=== PATIENT | female | born 1960 | race African-American/Black ===

== ENCOUNTER 2016-10-03 11:33 | Emergency (ER) | payer MEDICAID, OTHER ==
[~2016-10-03] VITALS: Ht 167.6 cm; Wt 59.0 kg
[2016-10-03] MEDS ORDERED: Morphine Sulfate 4mg/ml Inj IVP ONE (12:00)
[2016-10-03] MEDS ORDERED: Famotidine 20 MG/ 2ML VIAL IVP ONE (12:00)
[2016-10-03 12:21] LABS: LYMPHOCYTES % (AUTO) 22.8 % (20.0-45.0); MEAN CORPUSCULAR HEMOGLOBIN 30.7 PG (27.0-31.0); MEAN CORPUSCULAR HGB CONC 33.6 G/DL (32.0-36.0); MEAN CORPUSCULAR VOLUME 92 FL (80-99); MEAN PLATELET VOLUME 7.5 FL (6.5-10.1); MONOCYTES % (AUTO) 2.9 % (1.0-10.0); NEUTROPHILS % (AUTO) 73.3 % (45.0-75.0); PLATELET COUNT 333 K/UL (150-450); RED BLOOD COUNT 5.14 M/UL (4.20-5.40); RED CELL DISTRIBUTION WIDTH 11.2 % (11.6-14.8); WHITE BLOOD COUNT 10.8 K/UL (4.8-10.8)
[2016-10-03 12:24] LABS: APPEARANCE,URINE CLEAR; KETONES,URINE NEGATIVE (NEGATIVE); LEUKOCYTE ESTERASE ,URINE NEGATIVE (NEGATIVE); NITRITE,URINE NEGATIVE (NEGATIVE); PH,URINE 7 (4.5-8.0); PROTEIN,URINE NEGATIVE (NEGATIVE); UROBILINOGEN,URINE NORMAL MG/DL (0.0-1.0)
[2016-10-03 12:30] LABS: PROTHROMBIN TIME 9.9 SEC (9.30-11.50)
[2016-10-03 12:38] LABS: ALANINE AMINOTRANSFERASE 14 U/L (3-33); ALBUMIN/GLOBULIN RATIO 1.3 (1.0-2.7); ALCOHOL < 10 mg/dL; ANION GAP 18 (5-15); ASPARTATE AMINO TRANSFERASE 17 U/L (5-40); CALCIUM 10.1 mg/dL (8.6-10.2); CARBON DIOXIDE 25 mEQ/L (20-30); CHLORIDE 90 mEQ/L (98-107); CREATININE 1.3 mg/dL (0.5-0.9); GLOMERULAR FILTRATION RATE 51.5 mL/min (>60); HEMOLYSIS 1; LIPASE 65 U/L (< 60); POTASSIUM 3.1 mEQ/L (3.4-4.9); SODIUM 133 mEQ/L (135-145); TOTAL PROTEIN 7.5 g/dL (6.6-8.7)
[2016-10-03 12:55] VITALS: BP 186/113
[2016-10-03] MEDS ORDERED: Lisinopril 10mg tab ORAL ONE (13:00)
--- NOTE | 2016-10-03 14:21 | Emergency Room Report ---
History of Present Illness General Chief Complaint: Abdominal Pain Source: Patient Present Illness HPI Patient presents with severe epigastric pain and vomiting which began this morning. She recently returned from [place]. No fevers or diarrhea. Not vomit blood. Has not had this in the past. No medications taken. Pain is 10/ 10, severe, radiates somewhat to back. She denies alcohol and other drugs. No melena. Some dizziness and weakness. No headache. Post menopausal. H/O hypertension off meds for many months. Not remember meds. Allergies: Coded Allergies: PROPOXYPHENE (Verified Allergy, Mild, 11/03/08) Patient History Past Medical History: see triage record, HTN Social History: Reports: drug use - see tox - she had denied, Denies: smoking Social History Narrative with sig other Now: No Reviewed Nursing Documentation: PMH: Agreed, PSxH: Agreed Nursing Documentation-PMH Hx Hypertension: Yes Review of Systems All Other Systems: negative except mentioned in HPI Physical Exam Vital Signs Date Time Temp Pulse Resp B/P Pulse Ox O2 Delivery O2 Flow Rate FiO2 10/03/16 11:42 98.8 80 15 159/91 97 Room Air Sp02 EP Interpretation: reviewed, normal General Appearance: GCS 15, moderate distress, thin Head: normocephalic Eyes: bilateral eye PERRL, bilateral eye normal inspection ENT: moist mucus membranes Neck: supple Respiratory: lungs clear, normal breath sounds Cardiovascular #1: regular rate, rhythm Cardiovascular #2: 2+ radial (R) Gastrointestinal: normal inspection, soft, no mass, non-distended, no rebound, abnormal bowel sounds - decreased, tenderness - epigastric, scaphoid Musculoskeletal: back normal, gait/station normal, normal range of motion Neurologic: alert, oriented x3, grossly normal Psychiatric: anxious Skin: normal inspection, warm/dry Medical Decision Making Diagnostic Impression: Primary Impression: Epigastric pain Additional Impressions: Vomiting Qualified Codes: R11.2 - Nausea with vomiting, unspecified Substance abuse Hypertension Qualified Codes: I10 - Essential (primary) hypertension ER Course Patient presents with epigastric pain and vomiting. DDx: gastritis, pancreatitis, GERD, AMI, PUD amongst others. In moderate distress. Evaluation with labs, EKG. Treatment with IV hydration, pepcid, analgesics and zofran. Labs significant for normal WBC. + amphetamine tox. Renal insufficiency and elevated H/H suggests volume depletion. Slightly low potassium. Improved with treatment. BP high and treated with lisinopril. Discussed + tox - denial. Patient stable for outpatient observation and treatment. Laboratory Tests Test 10/03/16 12:06 10/03/16 12:09 Urine Color Pale yellow Urine Appearance Clear Urine pH 7 (4.5-8.0) Urine Specific [place] 1.010 (1.005-1.035) Urine Protein Negative (NEGATIVE) Urine Glucose (UA) Negative (NEGATIVE) Urine Ketones Negative (NEGATIVE) Urine Occult Blood Negative (NEGATIVE) Urine Nitrite Negative (NEGATIVE) Urine Bilirubin Negative (NEGATIVE) Urine Urobilinogen Normal MG/DL (0.0-1.0) Urine Leukocyte Esterase Negative (NEGATIVE) Urine Opiates Screen Negative (NEGATIVE) Urine Barbiturates Screen Negative (NEGATIVE) Phencyclidine (PCP) Screen Negative (NEGATIVE) Urine Amphetamines Screen Positive (NEGATIVE) H Urine Benzodiazepines Screen Negative (NEGATIVE) Urine Cocaine Screen Negative (NEGATIVE) Urine Marijuana (THC) Screen Positive (NEGATIVE) H White Blood Count 10.8 K/UL (4.8-10.8) Red Blood Count 5.14 M/UL (4.20-5.40) Hemoglobin 15.8 G/DL (12.0-16.0) Hematocrit 47.1 % (37.0-47.0) H Mean Corpuscular Volume 92 FL (80-99) Mean Corpuscular Hemoglobin 30.7 PG (27.0-31.0) Mean Corpuscular Hemoglobin Concent 33.6 G/DL (32.0-36.0) Red Cell Distribution Width 11.2 % (11.6-14.8) L Platelet Count 333 K/UL (150-450) Mean Platelet Volume 7.5 FL (6.5-10.1) Neutrophils (%) (Auto) 73.3 % (45.0-75.0) Lymphocytes (%) (Auto) 22.8 % (20.0-45.0) Monocytes (%) (Auto) 2.9 % (1.0-10.0) Eosinophils (%) (Auto) 0.0 % (0.0-3.0) Basophils (%) (Auto) 1.0 % (0.0-2.0) Prothrombin Time 9.9 SEC (9.30-11.50) Prothrombin Time INR 1.0 (0.9-1.1) PTT 26 SEC (23-33) Sodium Level 133 mEQ/L (135-145) L Potassium Level 3.1 mEQ/L (3.4-4.9) L Chloride Level 90 mEQ/L (98-107) L Carbon Dioxide Level 25 mEQ/L (20-30) Anion Gap 18 (5-15) H Blood Urea Nitrogen 19 mg/dL (7-23) Creatinine 1.3 mg/dL (0.5-0.9) H Estimate Glomerular Filtration Rate 51.5 mL/min (>60) Glucose Level 123 mg/dL (74-106) H Calcium Level 10.1 mg/dL (8.6-10.2) Total Bilirubin 0.5 mg/dL (0.0-1.2) Aspartate Amino Transferase (AST) 17 U/L (5-40) Alanine Aminotransferase (ALT) 14 U/L (3-33) Alkaline Phosphatase 67 U/L (35-104) Total Protein 7.5 g/dL (6.6-8.7) Albumin 4.3 g/dL (3.5-5.2) Globulin 3.2 g/dL Albumin/Globulin Ratio 1.3 (1.0-2.7) Lipase 65 U/L (< 60) H Serum Alcohol < 10 mg/dL EKG Diagnostic Results Rate: normal Rhythm: NSR ST Segments: no acute changes Rhythm Strip Diag. Results EP Interpretation: yes Rhythm: NSR, no PVC's, no ectopy Last Vital Signs Date Time Temp Pulse Resp B/P Pulse Ox O2 Delivery O2 Flow Rate FiO2 10/03/16 14:45 98.3 80 15 140/98 100 Room Air Status: improved Disposition: HOME, SELF-CARE Condition: Improved Scripts Lisinopril* (ZESTRIL*) 10 Mg Tablet 10 MG ORAL DAILY, #30 TAB Prov: Crescencio Owusu M.D. 10/03/16 Acetaminophen (Tylenol) 325 Mg Tablet 650 MG ORAL Q6H Y for Prn Pain/Headache/Temp > 101, #30 TAB 0 Refills Prov: Crescencio Owusu M.D. 10/03/16 Ondansetron Odt* (ZOFRAN ODT*) 4 Mg Tab.rapdis 4 MG ORAL Q8H Y for Nausea & Vomiting, #6 TAB 0 Refills Prov: Crescencio Owusu M.D. 10/03/16 Famotidine (PEPCID) 20 Mg Tablet 20 MG ORAL DAILY, #30 TAB 0 Refills Prov: Crescencio Owusu M.D. 10/03/16 Referrals: [facility]ERR[facility] (PCP) Crescencio Owusu M.D. October 03, 2016 14:21
[2016-10-03] MEDS ORDERED: ZESTRIL10 MG ORAL (14:24)
[2016-10-03] MEDS ORDERED: ZOFRAN ODT4 MG ORAL (14:24)
[2016-10-03] MEDS ORDERED: PEPCID20 MG ORAL (14:24)
[2016-10-03] MEDS ORDERED: TYLENOL325 MG ORAL (14:24)
[2016-10-03 14:28] VITALS: BP 140/98
[2016-10-03 14:45] VITALS: BP 140/98
[2016-10-04] MEDS ORDERED: AMLODIPINE BESY10 MG ORAL (13:59)
[2016-10-04] MEDS ORDERED: ESTRACE1 MG ORAL (13:59)
[2016-10-04] MEDS ORDERED: HYDROCHLOROTH12.5 M2 ORAL (14:00)
[2016-10-04] MEDS ORDERED: TACTINAL325 MG PO (14:00)
--- NOTE | 2016-10-04 16:52 | Cardiology Report ---
APPROVED REPORT EKG Measurement Heart [id number] Normal sinus rhythm Abnormal ECG
== END 2016-10-03 14:49 | disposition home or self-care (01) ==
LOC: EMR 12:01
DX: R10.13 Epigastric pain (principal); R11.2 Nausea with vomiting, unspecified; I10 Essential (primary) hypertension; F19.10 Other psychoactive substance abuse, uncomplicated
CPT/HCPCS: 36415; 80053; 80300; 80329; 81003; 83690; 85025; 85610; 85730; 93005; 96360; 96374; 96375; 99284; J2270; J2405; S0028

== ENCOUNTER 2016-10-04 13:26 | Emergency (ER) | payer OTHER ==
[~2016-10-04] VITALS: Ht 170.2 cm; Wt 59.0 kg
[~2016-10-04 13:26] MED LIST: PEPCID20 MG ORAL; TYLENOL325 MG ORAL; ZESTRIL10 MG ORAL; ZOFRAN ODT4 MG ORAL
[2016-10-04] MEDS ORDERED: Famotidine 20 MG/ 2ML VIAL IVP ONE (13:45)
[2016-10-04] MEDS ORDERED: ESTRACE1 MG ORAL (13:59)
[2016-10-04] MEDS ORDERED: AMLODIPINE BESY10 MG ORAL (13:59)
[2016-10-04] MEDS ORDERED: HYDROCHLOROTH12.5 M2 ORAL (14:00)
[2016-10-04] MEDS ORDERED: TACTINAL325 MG PO (14:00)
[2016-10-04 14:01] LABS: BASOPHILS % (AUTO) 0.5 % (0.0-2.0); EOSINOPHILS % (AUTO) 0.1 % (0.0-3.0); LYMPHOCYTES % (AUTO) 31.6 % (20.0-45.0); MEAN CORPUSCULAR HEMOGLOBIN 31.9 PG (27.0-31.0); MEAN CORPUSCULAR HGB CONC 34.8 G/DL (32.0-36.0); MEAN CORPUSCULAR VOLUME 91 FL (80-99); MEAN PLATELET VOLUME 7.8 FL (6.5-10.1); MONOCYTES % (AUTO) 4.7 % (1.0-10.0); NEUTROPHILS % (AUTO) 63.2 % (45.0-75.0); PLATELET COUNT 342 K/UL (150-450); RED BLOOD COUNT 4.88 M/UL (4.20-5.40); RED CELL DISTRIBUTION WIDTH 11.1 % (11.6-14.8); WHITE BLOOD COUNT 9.2 K/UL (4.8-10.8)
[2016-10-04 14:04] VITALS: BP 187/103
[2016-10-04 14:06] LABS: APPEARANCE,URINE CLEAR; KETONES,URINE NEGATIVE (NEGATIVE); LEUKOCYTE ESTERASE ,URINE NEGATIVE (NEGATIVE); NITRITE,URINE NEGATIVE (NEGATIVE); PH,URINE 8 (4.5-8.0); PROTEIN,URINE NEGATIVE (NEGATIVE); UROBILINOGEN,URINE NORMAL MG/DL (0.0-1.0)
[2016-10-04] MEDS ORDERED: fentaNYL 100 mcg/2 mL IV ONE (14:15)
[2016-10-04 14:17] LABS: TROPONIN I < 0.30 ng/mL (<=0.30)
[2016-10-04 14:21] LABS: ALBUMIN/GLOBULIN RATIO 1.3 (1.0-2.7); CALCIUM 10.1 mg/dL (8.6-10.2); CREATININE 1.4 mg/dL (0.5-0.9); GLOMERULAR FILTRATION RATE 47.3 mL/min (>60); TOTAL PROTEIN 7.3 g/dL (6.6-8.7)
--- NOTE | 2016-10-04 14:38 | Emergency Room Report ---
History of Present Illness General Chief Complaint: Abdominal Pain Source: Patient Present Illness HPI 56YOF here for abd pain. Second visit in 2 days. Was here yesterday for same. Was DCed with diagnosis of gastritis. Utox + amphetamine and MJ. Renal insufficiency and elevated H/H suggests volume depletion. Slightly low potassium. Was hydrated. Patient states she left ER, filled Rx, and took meds but no improvement. Denies vomiting, diarrhea, fever/chills. Pain remains epigastric in location. History of hysterectomy Allergies: Coded Allergies: PROPOXYPHENE (Verified Allergy, Mild, 11/03/08) Patient History Past Medical History: HTN Past Surgical History: hysterectomy Pertinent Family History: none Social History: Denies: alcohol use, drug use, smoking Nursing Documentation-PMH Hx Hypertension: Yes Review of Systems All Other Systems: negative except mentioned in HPI Physical Exam Vital Signs Date Time Temp Pulse Resp B/P Pulse Ox O2 Delivery O2 Flow Rate FiO2 10/04/16 13:31 97.3 80 15 160/108 100 Room Air Sp02 EP Interpretation: reviewed, abnormal General Appearance: normal inspection, well appearing, no apparent distress, alert, GCS 15, non-toxic, other - writhing on stretcher Head: normocephalic, atraumatic Eyes: bilateral eye EOMI, bilateral eye PERRL ENT: normal ENT inspection, hearing grossly normal, normal voice Neck: normal inspection, full range of motion, supple, no bony tend Respiratory: normal inspection, lungs clear, normal breath sounds, no respiratory distress, no retraction, no wheezing Cardiovascular #1: regular rate, rhythm, no edema Gastrointestinal: normal inspection, normal bowel sounds, soft, no guarding, no hernia, other - + epigastric ttp. No ecchymoses. No rebound, guarding Genitourinary: no CVA tenderness Musculoskeletal: normal inspection, back normal, normal range of motion, Ceci' s Sign negative Neurologic: normal inspection, alert, oriented x3, responsive, foster parent III-XII nml as tested, motor strength/tone normal, speech normal Psychiatric: normal inspection, judgement/insight normal, mood/affect normal Skin: normal inspection, normal color, no rash Medical Decision Making Diagnostic Impression: Primary Impression: Epigastric pain Additional Impressions: Hypertension Qualified Codes: I10 - Essential (primary) hypertension Substance abuse Pyelonephritis Intractable vomiting Qualified Codes: R11.2 - Nausea with vomiting, unspecified ER Course Epigastric pain - VS notable for hypertension. Known HTN, took med today. Likely related to pain - +Epigastric ttp on exam - Utox positive again for MJ, could be still showing in urine from prior use - Slight rise in serumCr vs yesterday. IV NS given for hydration, likely pre- renal. - No leuks. - CTAP: Acute bilateral pyelonephritis. However UA grossly negative for infection. Patient does contineu to c./o abd pain and intractable vomiting. Will tx empirically and send Blood, Urine Cx. - Endorsed to Dr Hedrick for transfer at 533pm. Last Vital Signs Date Time Temp Pulse Resp B/P Pulse Ox O2 Delivery O2 Flow Rate FiO2 10/04/16 14:04 78 24 187/103 100 Room Air 10/04/16 13:31 97.3 Status: improved Disposition: ADMITTED INPATIENT Condition: Serious Referrals: [facility]ERR[facility] (PCP) LESLY PINEDA M.D. October 04, 2016 14:38
[2016-10-04 15:20] VITALS: BP 166/79
[2016-10-04] MEDS ORDERED: cefTRIAXone 2 GM in NS 110 ML IVPB ONE (16:30)
[2016-10-04] MEDS ORDERED: Metoclopramide 10mg/2ml Inj IVP ONE (16:30)
[2016-10-04 17:04] VITALS: BP 162/92
[2016-10-04 18:25] VITALS: BP 162/92
--- NOTE | 2016-10-05 10:08 | Diagnostic Imaging Report ---
Clinical Indication: Abdominal pain epigastric Technique: Patient given oral contrast. IV administration nonionic contrast. Venous phase spiral acquisition obtained through the abdomen and pelvis. Multiplanar reconstructions were generated. Total dose length product 723 mGycm. CTDIvol(s) 14 mGy. Dose reduction achieved using automated exposure control Comparison: None Findings: There is heterogeneous contrast opacification of both kidneys, with multiple irregular areas of low attenuation scattered throughout. No hydronephrosis. No renal or ureteral calculi. The bladder is nondistended, equivocally thick walled. There is a 5.2 cm diameter unilocular right adnexal cystic mass. The khan are perceptible but not necessarily thick or irregular. The left ovary is unremarkable. The uterus is surgically absent The liver, gallbladder, bile ducts, pancreas, spleen, adrenals are unremarkable. No retroperitoneal or mesenteric mass or adenopathy. The appendix is normal. Contrast is seen throughout the entirety of the small bowel and has reached the colon. There is no small bowel distention or small bowel wall thickening. There is no evidence of diverticulosis or diverticulitis. There is trace free pelvic fluid. The distal esophagus, stomach, duodenum are unremarkable. The included lung bases are clear. The bones are unremarkable. There is transitional lumbosacral anatomy. Impression: Diffusely heterogeneous irregular renal contrast opacification bilaterally. Findings are suspicious for bilateral acute pyelonephritis. Correlate with clinical and laboratory findings Possible bladder wall thickening. Most likely an artifact of under distention, the possibility of associated cystitis should be considered 5.2 cm diameter unilocular right adnexal cystic mass. Further workup with pelvic ultrasound, as well as gynecological evaluation, should be considered Trace free pelvic fluid, most likely physiologic The CT scanner at [facility] is accredited by the [employer] and the scans are performed using protocols designed to limit radiation exposure to as low as reasonably achievable to attain images of sufficient resolution adequate for diagnostic evaluation.
== END 2016-10-04 18:26 | disposition short-term general hospital (02) ==
LOC: EMR 13:44
DX: R10.13 Epigastric pain (principal); I10 Essential (primary) hypertension; N10 Acute pyelonephritis; R11.10 Vomiting, unspecified
CPT/HCPCS: 36415; 74177; 80053; 80300; 81003; 83690; 84484; 85025; 87040; 96360; 96374; 96375; 99285; J0696; J2405; J2765; J3010; Q9967; S0028

== ENCOUNTER 2016-10-09 00:03 | Inpatient (IN) | payer OTHER ==
[~2016-10-09] VITALS: Ht 170.2 cm; Wt 56.7 kg
[2016-10-09] VITALS (11 sets, daily range): BP systolic 137–191; BP diastolic 84–100
[~2016-10-09 00:03] MED LIST changes: +AMLODIPINE BESY10 MG ORAL; +ESTRACE1 MG ORAL; +HYDROCHLOROTH12.5 M2 ORAL; +TACTINAL325 MG PO
[2016-10-09] MEDS ORDERED: Metoclopramide 10mg/2ml Inj IVP ONE (00:45)
[2016-10-09] MEDS ORDERED: Morphine Sulfate 4mg/ml Inj IVP ONE ×2 (00:45→04:30)
[2016-10-09] MEDS ORDERED: DiphenhydrAMINE 50mg/ml Inj IVP ONE ×2 (00:45→11:15)
[2016-10-09 01:04] LABS: EOSINOPHILS % (AUTO) 0.6 % (0.0-3.0); LYMPHOCYTES % (AUTO) 31.1 % (20.0-45.0); MEAN CORPUSCULAR HEMOGLOBIN 31.8 PG (27.0-31.0); MEAN CORPUSCULAR HGB CONC 33.6 G/DL (32.0-36.0); MEAN CORPUSCULAR VOLUME 95 FL (80-99); MEAN PLATELET VOLUME 7.1 FL (6.5-10.1); NEUTROPHILS % (AUTO) 62.4 % (45.0-75.0); PLATELET COUNT 363 K/UL (150-450); RED BLOOD COUNT 4.44 M/UL (4.20-5.40); RED CELL DISTRIBUTION WIDTH 11.8 % (11.6-14.8); WHITE BLOOD COUNT 11.2 K/UL (4.8-10.8)
[2016-10-09 01:05] LABS: APPEARANCE,URINE CLEAR; KETONES,URINE NEGATIVE (NEGATIVE); LEUKOCYTE ESTERASE ,URINE 1+ (NEGATIVE); NITRITE,URINE NEGATIVE (NEGATIVE); PH,URINE 6 (4.5-8.0); PROTEIN,URINE 1+ (NEGATIVE); UROBILINOGEN,URINE NORMAL MG/DL (0.0-1.0)
[2016-10-09 01:19] LABS: INR 0.9 (0.9-1.1); PROTHROMBIN TIME 9.4 SEC (9.30-11.50)
[2016-10-09 01:25] LABS: ALANINE AMINOTRANSFERASE 14 U/L (3-33); ALBUMIN/GLOBULIN RATIO 1.4 (1.0-2.7); ALCOHOL < 10 mg/dL; ANION GAP 17 (5-15); ASPARTATE AMINO TRANSFERASE 17 U/L (5-40); CALCIUM 10.6 mg/dL (8.6-10.2); CARBON DIOXIDE 24 mEQ/L (20-30); CHLORIDE 99 mEQ/L (98-107); CREATININE 1.4 mg/dL (0.5-0.9); GLOMERULAR FILTRATION RATE 47.3 mL/min (>60); HEMOLYSIS 2; LIPASE 51 U/L (< 60); POTASSIUM 3.6 mEQ/L (3.4-4.9); SODIUM 140 mEQ/L (135-145); TOTAL PROTEIN 6.7 g/dL (6.6-8.7)
[2016-10-09 01:42] LABS: BACTERIA,URINE MODERATE /HPF; RBC,URINE 0-2 /HPF (0 - 2); SQUAMOUS EPITHELIAL CELL,UR MODERATE /LPF (NONE/OCC)
--- NOTE | 2016-10-09 04:32 | Emergency Room Report ---
History of Present Illness General Chief Complaint: Abdominal Pain Source: Patient, Family Member Present Illness HPI Discharged yesterday from [facility]. She was transferred there diagnosis of abdominal pain and possible bilateral pyelonephritis. She has renal insufficiency. She's continued to vomit and have abdominal pain after discharge. Abdominal pain is constant and diffuse. She didn't move her bowels and denies any diarrhea at this time. She denies any fevers or chills. She denies dysuria. Pain is 9/10 - diffuse and radiates to her back. This is a note when she presented on October 04 and was transferred to [facility]: 56YOF here for abd pain. Second visit in 2 days. Was here yesterday for same. Was DCed with diagnosis of gastritis. Utox + amphetamine and MJ. Renal insufficiency and elevated H/H suggests volume depletion. Slightly low potassium. Was hydrated. Patient states she left ER, filled Rx, and took meds but no improvement. Denies vomiting, diarrhea, fever/chills. Pain remains epigastric in location. History of hysterectomy Epigastric pain - VS notable for hypertension. Known HTN, took med today. Likely related to pain - +Epigastric ttp on exam - Utox positive again for MJ, could be still showing in urine from prior use - Slight rise in serumCr vs yesterday. IV NS given for hydration, likely pre- renal. - No leuks. - CTAP: Acute bilateral pyelonephritis. However UA grossly negative for infection. Patient does contineu to c./o abd pain and intractable vomiting. Will tx empirically and send Blood, Urine Cx. - Endorsed to Dr Hedrick for transfer at 533pm. Allergies: Coded Allergies: PROPOXYPHENE (Verified Allergy, Mild, 11/03/08) Patient History Past Medical History: see triage record Social History: Reports: alcohol use, drug use, smoking Social History Narrative Reviewed Nursing Documentation: PMH: Agreed, PSxH: Agreed Nursing Documentation-PMH Hx Hypertension: Yes Review of Systems All Other Systems: negative except mentioned in HPI Physical Exam Vital Signs Date Time Temp Pulse Resp B/P Pulse Ox O2 Delivery O2 Flow Rate FiO2 10/09/16 00:19 97.9 78 16 191/95 99 Room Air Sp02 EP Interpretation: reviewed, normal General Appearance: well appearing, GCS 15, mild distress Head: normocephalic Eyes: bilateral eye Scleral Injection, bilateral eye normal inspection ENT: moist mucus membranes Neck: supple Respiratory: lungs clear, normal breath sounds Cardiovascular #1: regular rate, rhythm Cardiovascular #2: 2+ radial (R) Gastrointestinal: normal inspection, no mass, non-distended, abnormal bowel sounds - decreased, guarding - mid abdomen, tenderness Musculoskeletal: back normal, gait/station normal, normal range of motion Neurologic: alert, oriented x3, grossly normal Psychiatric: anxious - and in pain Skin: normal inspection, warm/dry Medical Decision Making Diagnostic Impression: Primary Impression: Abdominal pain Qualified Codes: R10.84 - Generalized abdominal pain Additional Impressions: Renal insufficiency Possible opiate dependence/withdrawal ER Course The patient presents as abdominal pain and vomiting. She was recently discharged with a diagnosis of pyelonephritis however urinalysis showed no pyuria. She is renal insufficiency. The pain is diffuse at this time and his vomiting. Differential includes diverticulitis, peptic ulcer disease, pancreatitis, cholecystitis, opiate dependence/withdrawal amongst others. She is in moderate distress at this time and needs evaluation with labs, x-rays. Usually treated with IV hydration and analgesia. CT scan is reviewed: Impression: Diffusely heterogeneous irregular renal contrast opacification bilaterally. Findings are suspicious for bilateral acute pyelonephritis. Correlate with clinical and laboratory findings Possible bladder wall thickening. Most likely an artifact of under distention, the possibility of associated cystitis should be considered 5.2 cm diameter unilocular right adnexal cystic mass. Further workup with pelvic ultrasound, as well as gynecological evaluation, should be considered Trace free pelvic fluid, most likely physiologic Laboratory was remarkable for normal white count and continued renal insufficiency. The patient had initial improvement with pain medication. On reexamination she has guarding which is central without any rebound. She's in distress and will have pain medication repeated. As there is no clear etiology as to the abdominal pain is fairly severe the patient is to be admitted to hospital for observation. Admit med Dr. Roa. Laboratory Tests Test 10/09/16 00:40 10/09/16 00:45 White Blood Count 11.2 K/UL (4.8-10.8) H Red Blood Count 4.44 M/UL (4.20-5.40) Hemoglobin 14.1 G/DL (12.0-16.0) Hematocrit 42.0 % (37.0-47.0) Mean Corpuscular Volume 95 FL (80-99) Mean Corpuscular Hemoglobin 31.8 PG (27.0-31.0) H Mean Corpuscular Hemoglobin Concent 33.6 G/DL (32.0-36.0) Red Cell Distribution Width 11.8 % (11.6-14.8) Platelet Count 363 K/UL (150-450) Mean Platelet Volume 7.1 FL (6.5-10.1) Neutrophils (%) (Auto) 62.4 % (45.0-75.0) Lymphocytes (%) (Auto) 31.1 % (20.0-45.0) Monocytes (%) (Auto) 5.0 % (1.0-10.0) Eosinophils (%) (Auto) 0.6 % (0.0-3.0) Basophils (%) (Auto) 1.0 % (0.0-2.0) Prothrombin Time 9.4 SEC (9.30-11.50) Prothrombin Time INR 0.9 (0.9-1.1) PTT 26 SEC (23-33) Sodium Level 140 mEQ/L (135-145) Potassium Level 3.6 mEQ/L (3.4-4.9) Chloride Level 99 mEQ/L (98-107) Carbon Dioxide Level 24 mEQ/L (20-30) Anion Gap 17 (5-15) H Blood Urea Nitrogen 12 mg/dL (7-23) Creatinine 1.4 mg/dL (0.5-0.9) H Estimate Glomerular Filtration Rate 47.3 mL/min (>60) Glucose Level 112 mg/dL (74-106) H Calcium Level 10.6 mg/dL (8.6-10.2) H Total Bilirubin < 0.2 mg/dL (0.0-1.2) Aspartate Amino Transferase (AST) 17 U/L (5-40) Alanine Aminotransferase (ALT) 14 U/L (3-33) Alkaline Phosphatase 49 U/L (35-104) Total Protein 6.7 g/dL (6.6-8.7) Albumin 4.0 g/dL (3.5-5.2) Globulin 2.7 g/dL Albumin/Globulin Ratio 1.4 (1.0-2.7) Lipase 51 U/L (< 60) Serum Alcohol < 10 mg/dL Urine Color Pale yellow Urine Appearance Clear Urine pH 6 (4.5-8.0) Urine Specific [place] 1.020 (1.005-1.035) Urine Protein 1+ (NEGATIVE) H Urine Glucose (UA) Negative (NEGATIVE) Urine Ketones Negative (NEGATIVE) Urine Occult Blood Negative (NEGATIVE) Urine Nitrite Negative (NEGATIVE) Urine Bilirubin Negative (NEGATIVE) Urine Urobilinogen Normal MG/DL (0.0-1.0) Urine Leukocyte Esterase 1+ (NEGATIVE) H Urine RBC 0-2 /HPF (0 - 2) Urine WBC 2-4 /HPF (0 - 2) Urine Squamous Epithelial Cells Moderate /LPF (NONE/OCC) H Urine Bacteria Moderate /HPF (NONE) H Urine Opiates Screen Negative (NEGATIVE) Urine Barbiturates Screen Negative (NEGATIVE) Phencyclidine (PCP) Screen Negative (NEGATIVE) Urine Amphetamines Screen Negative (NEGATIVE) Urine Benzodiazepines Screen Negative (NEGATIVE) Urine Cocaine Screen Negative (NEGATIVE) Urine Marijuana (THC) Screen Positive (NEGATIVE) H Chest X-Ray Diagnostic Results EP Interpretation: Yes Findings: no consolidation, no effusion, no pneumothorax, no acute cardiopulmonary disease Number of Views: 1 Other X-Ray Diagnostic Results Other X-Ray Diagnostic Results : X-Ray Ordered: abd EP Interpretation: Yes Findings: other - Positive gas no small bowel obstruction or masses. No abnormal calcifications. Number of Views: 1 Last Vital Signs Date Time Temp Pulse Resp B/P Pulse Ox O2 Delivery O2 Flow Rate FiO2 10/10/16 00:06 97.9 69 17 125/75 98 Room Air Status: improved Disposition: ADMITTED INPATIENT Condition: Serious Referrals: [facility] (PCP) Crescencio Owusu M.D. Oct 09, 2016 04:32
[2016-10-09] MEDS: Lisinopril 10mg tab ORAL SCH (10:12)
[2016-10-09] MEDS: Heparin 5000 units/ml inj SUBQ SCH ×2 (10:14→21:42)
--- NOTE | 2016-10-09 11:26 | Diagnostic Imaging Report ---
Indication: Abdominal pain Comparison: None Single view of the abdomen obtained Findings: Bowel gas pattern is nonspecific. No mass, ectopic calcifications, or abnormal gas collections are identified. The bones are unremarkable. Impression: No acute findings
--- NOTE | 2016-10-09 11:26 | Diagnostic Imaging Report ---
Indication: Chest Pain Comparison: November 05, 2008 A single view chest radiograph was obtained. Findings: Cardiomediastinal appearance is within normal limits for age. Pulmonary vascularity is appropriate. The diaphragmatic contour is smooth and costophrenic angles are sharp. No pleural effusions are identified. The bones are unremarkable. Impression: No acute findings
[2016-10-09] MEDS: D5 1/2NS w/KCl 20mEq 1,000 ML IV SCH (11:43)
--- NOTE | 2016-10-09 13:18 | GI Initial Consult Note ---
History of Present Illness General Date patient seen: Oct 09, 2016 Time patient seen: 10:00 Reason for Hospitalization: Abdominal Pain Referring physician: MARBELLA BAGLEY Reason for Consultation: ABDOMINAL PAIN Present Illness HPI Date his associates a from a [place] [facility]. She was transferred there diagnosis of abdominal pain and possible bilateral pyelonephritis. She has renal insufficiency. She's continued to vomit and have abdominal pain. Abdominal pain is constant and diffuse. She didn't move her bowels and denies any diarrhea at this time. She denies any fevers or chills. She denies dysuria. GI CONSULT. HPI as noted above. GI consulted for abdominal pain described as constant, generalized diffusion with no radiation to back. Pt seen on floor, awake A&Ox4 NAD. According to the patient, she has food poisoning from some chicken that she had ate. Presents today with leukocytosis and 5mm adnexal mass on APCT. KUB shows abnormal gas collections, otherwise unremarkable. Pt tested positive for MJ. No history of any endoscopic procedure. Denies N/V/D. This is a note when she presented on October 04 and was transferred to [facility]: [id number] here for abd pain. Second visit in 2 days. Was here yesterday for same. Was DCed with diagnosis of gastritis. Utox + amphetamine and MJ. Renal insufficiency and elevated H/H suggests volume depletion. Slightly low potassium. Was hydrated. Patient states she left ER, filled Rx, and took meds but no improvement. Denies vomiting, diarrhea, fever/chills. Pain remains epigastric in location. History of hysterectomy Epigastric pain - VS notable for hypertension. Known HTN, took med today. Likely related to pain - +Epigastric ttp on exam - Utox positive again for MJ, could be still showing in urine from prior use - Slight rise in serumCr vs yesterday. IV NS given for hydration, likely pre- renal. - No leuks. - CTAP: Acute bilateral pyelonephritis. However UA grossly negative for infection. Patient does contineu to c./o abd pain and intractable vomiting. Will tx empirically and send Blood, Urine Cx. - Endorsed to Dr Hedrick for transfer at 533pm. Allergies: Coded Allergies: PROPOXYPHENE (Verified Allergy, Mild, 11/03/08) Patient History Past Medical History: see triage record Social History: Reports: alcohol use, drug use, smoking Social History Narrative Reviewed Nursing Documentation: PMH: Agreed, PSxH: Agreed Home Meds Active Scripts Lisinopril* (ZESTRIL*) 10 Mg Tablet, 10 MG ORAL DAILY, #30 TAB Prov:Crescencio Owusu M.D. 10/03/16 Acetaminophen (Tylenol) 325 Mg Tablet, 650 MG ORAL Q6H Y for Prn Pain/Headache/ Temp > 101, #30 TAB 0 Refills Prov:Crescencio Owusu M.D. 10/03/16 Ondansetron Odt* (ZOFRAN ODT*) 4 Mg Tab.rapdis, 4 MG ORAL Q8H Y for Nausea & Vomiting, #6 TAB 0 Refills Prov:Crescencio Owusu M.D. 10/03/16 Famotidine (PEPCID) 20 Mg Tablet, 20 MG ORAL DAILY, #30 TAB 0 Refills Prov:Crescencio Owusu M.D. 10/03/16 Reported Medications Hydrochlorothiazide* (HYDROCHLOROTHIAZIDE*) 12.5 Mg Capsule, 12.5 MG ORAL DAILY , CAP 10/04/16 Acetaminophen (TACTINAL) 325 Mg Tablet, 650 MG PO EVERY 6 HOURS, TAB 10/04/16 Amlodipine Besylate* (AMLODIPINE BESYLATE*) 10 Mg Tablet, 10 MG ORAL DAILY, TAB 10/04/16 Estradiol* (ESTRACE*) 1 Mg Tablet, 0.5 MG ORAL DAILY, #10 TAB 0 Refills 10/04/16 Med list reviewed/reconciled: Yes Allergies: Coded Allergies: PROPOXYPHENE (Verified Allergy, Mild, 11/03/08) Patient History History Provided By: Patient, Medical Record PMH Narrative Past Medical History: see triage record Social History: Reports: alcohol use, drug use, smoking Social History Narrative Reviewed Nursing Documentation: PMH: Agreed, PSxH: Agreed Social History: Reports: drug use Review of Systems All Other Systems: negative except mentioned in HPI Physical Exam Vital Signs Date Time Temp Pulse Resp B/P Pulse Ox O2 Delivery O2 Flow Rate FiO2 10/09/16 00:19 97.9 78 16 191/95 99 Room Air Sp02 EP Interpretation: reviewed Labs Laboratory Tests Test 10/09/16 00:40 10/09/16 00:45 White Blood Count 11.2 K/UL (4.8-10.8) H Red Blood Count 4.44 M/UL (4.20-5.40) Hemoglobin 14.1 G/DL (12.0-16.0) Hematocrit 42.0 % (37.0-47.0) Mean Corpuscular Volume 95 FL (80-99) Mean Corpuscular Hemoglobin 31.8 PG (27.0-31.0) H Mean Corpuscular Hemoglobin Concent 33.6 G/DL (32.0-36.0) Red Cell Distribution Width 11.8 % (11.6-14.8) Platelet Count 363 K/UL (150-450) Mean Platelet Volume 7.1 FL (6.5-10.1) Neutrophils (%) (Auto) 62.4 % (45.0-75.0) Lymphocytes (%) (Auto) 31.1 % (20.0-45.0) Monocytes (%) (Auto) 5.0 % (1.0-10.0) Eosinophils (%) (Auto) 0.6 % (0.0-3.0) Basophils (%) (Auto) 1.0 % (0.0-2.0) Prothrombin Time 9.4 SEC (9.30-11.50) Prothromb Time International Ratio 0.9 (0.9-1.1) Activated Partial Thromboplast Time 26 SEC (23-33) Sodium Level 140 mEQ/L (135-145) Potassium Level 3.6 mEQ/L (3.4-4.9) Chloride Level 99 mEQ/L (98-107) Carbon Dioxide Level 24 mEQ/L (20-30) Anion Gap 17 (5-15) H Blood Urea Nitrogen 12 mg/dL (7-23) Creatinine 1.4 mg/dL (0.5-0.9) H Estimat Glomerular Filtration Rate 47.3 mL/min (>60) Glucose Level 112 mg/dL (74-106) H Calcium Level 10.6 mg/dL (8.6-10.2) H Total Bilirubin < 0.2 mg/dL (0.0-1.2) Aspartate Amino Transf (AST/SGOT) 17 U/L (5-40) Alanine Aminotransferase (ALT/SGPT) 14 U/L (3-33) Alkaline Phosphatase 49 U/L (35-104) Total Protein 6.7 g/dL (6.6-8.7) Albumin 4.0 g/dL (3.5-5.2) Globulin 2.7 g/dL Albumin/Globulin Ratio 1.4 (1.0-2.7) Lipase 51 U/L (< 60) Serum Alcohol < 10 mg/dL Urine Color Pale yellow Urine Appearance Clear Urine pH 6 (4.5-8.0) Urine Specific [place] 1.020 (1.005-1.035) Urine Protein 1+ (NEGATIVE) H Urine Glucose (UA) Negative (NEGATIVE) Urine Ketones Negative (NEGATIVE) Urine Occult Blood Negative (NEGATIVE) Urine Nitrite Negative (NEGATIVE) Urine Bilirubin Negative (NEGATIVE) Urine Urobilinogen Normal MG/DL (0.0-1.0) Urine Leukocyte Esterase 1+ (NEGATIVE) H Urine RBC 0-2 /HPF (0 - 2) Urine WBC 2-4 /HPF (0 - 2) Urine Squamous Epithelial Cells Moderate /LPF (NONE/OCC) H Urine Bacteria Moderate /HPF (NONE) H Urine Opiates Screen Negative (NEGATIVE) Urine Barbiturates Screen Negative (NEGATIVE) Phencyclidine (PCP) Screen Negative (NEGATIVE) Urine Amphetamines Screen Negative (NEGATIVE) Urine Benzodiazepines Screen Negative (NEGATIVE) Urine Cocaine Screen Negative (NEGATIVE) Urine Marijuana (THC) Screen Positive (NEGATIVE) H General Appearance: no apparent distress, alert, thin Head: normocephalic EENT: normal ENT inspection Neck: supple Respiratory: normal breath sounds, no respiratory distress Cardiovascular: normal rate Gastrointestinal: soft, tenderness Rectal: deferred Genitourinary: no CVA tenderness Musculoskeletal: normal inspection, back normal Neurologic: normal inspection, alert, oriented x3, responsive Psychiatric: normal inspection, judgement/insight normal, memory normal Skin: normal inspection, normal color, no rash, warm/dry Lymphatic: normal inspection, no adenopathy Current Medications Current Medications Medications (Trade) Dose Ordered Sig/Mariano Route PRN Reason Start Time Stop Time Status Last Admin Dose Admin Acetaminophen (Tylenol) 650 mg Q4H PRN ORAL fever>100.5 10/09/16 09:00 11/08/16 08:59 10/09/16 10:12 Amlodipine Besylate (Norvasc) 10 mg DAILY ORAL 10/09/16 10:00 11/08/16 09:59 10/09/16 10:18 Dextrose/ Electrolytes (D5 0.45%NS W/ KCl 20mEq) 1,000 ml @ 50 mls/hr Q20H IV 10/09/16 11:30 11/08/16 11:29 10/09/16 11:43 Heparin Sodium (Porcine) (Heparin 5000 units/ml) 5,000 units EVERY 12 HOURS SUBQ 10/09/16 09:00 11/08/16 08:59 10/09/16 10:14 Hydrochlorothiazide 12.5 mg 12.5 mg DAILY ORAL 10/09/16 10:00 11/08/16 09:59 10/09/16 10:12 Lisinopril (Zestril) 10 mg DAILY ORAL 10/09/16 10:00 11/08/16 09:59 10/09/16 10:12 Ondansetron HCl (Zofran) 4 mg Q6H PRN IVP Nausea & Vomiting 10/09/16 09:00 11/08/16 08:59 10/09/16 10:11 Zolpidem Tartrate (Ambien) 5 mg HSPRN PRN ORAL Insomnia 10/09/16 21:00 11/08/16 20:59 GI: Plan Problems: (1) Substance abuse (2) Vomiting (3) Epigastric pain (4) Abdominal pain Plan APCT >> 5mm adnexal mass lipase WNL utox positive for MJ symptomatic treatment at this time ordered pelvic US ordered CA 125 pain mgmt H2B simethicone prn zofran prn CLD >> adv as tolerated abx outpatient GI procedures, refuses to have one done in hospital. Discussed with Dr. Gonzalez. Thank you for referring this patient, we will follow. Aria Em N.P. Oct 09, 2016 13:18
[2016-10-09] MEDS ORDERED: Simethicone 80mg tab ORAL ONE (13:30)
[2016-10-09] MEDS ORDERED: Morphine Sulfate 2mg/ml Inj IVP PRN (13:45)
[2016-10-09] MEDS ORDERED: Morphine Sulfate 4mg/ml Inj IVP PRN (13:45)
[2016-10-09] MEDS ORDERED: Norco 5mg/325mg tab ORAL PRN (13:45)
[2016-10-09] MEDS ORDERED: DiphenhydrAMINE 50mg/ml Inj IVP PRN (14:00)
--- NOTE | 2016-10-09 14:38 | History and Physical ---
History of Present Illness General Date patient seen: Oct 09, 2016 Reason for Hospitalization: Abdominal Pain Present Illness HPI 56 year old female with hx of htn, was at ER recently and then transferred to [facility]. She stayed there for three days for treatment of Pyelonephritis. She got discharged from that hospital and ate some "bad chicken" started to throw up and came back to [facility]. She is admitted for intractable nausea and vomiting. Allergies: Coded Allergies: PROPOXYPHENE (Verified Allergy, Mild, 11/03/08) Medication History Scheduled Acetaminophen (Tactinal), 650 MG PO EVERY 6 HOURS, (Reported) Amlodipine Besylate* (Amlodipine Besylate*), 10 MG ORAL DAILY, (Reported) Estradiol* (Estrace*), 0.5 MG ORAL DAILY, (Reported) Famotidine (Pepcid), 20 MG ORAL DAILY Hydrochlorothiazide* (Hydrochlorothiazide*), 12.5 MG ORAL DAILY, (Reported) Lisinopril* (Zestril*), 10 MG ORAL DAILY Scheduled PRN Acetaminophen (Tylenol), 650 MG ORAL Q6H PRN for Prn Pain/Headache/Temp > 101 Ondansetron Odt* (Zofran Odt*), 4 MG ORAL Q8H PRN for Nausea & Vomiting Patient History Healthcare decision maker Resuscitation status Advanced Directive on File Past Medical/Surgical History Past Medical/Surgical History: (1) Hypertension Review of Systems All Other Systems: negative except mentioned in HPI Physical Exam General Appearance: no apparent distress Lines, tubes and drains: peripheral, central line Breasts: no masses Cardiovascular/Chest: normal peripheral pulses Abdomen: normal bowel sounds, non tender Genitourinary/Rectal: normal genital exam Extremities: normal range of motion 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 Last 24 Hour Vital Signs Date Time Temp Pulse Resp B/P Pulse Ox O2 Delivery O2 Flow Rate FiO2 10/09/16 11:44 98.1 103 20 159/100 98 Room Air 10/09/16 11:11 98.3 10/09/16 10:18 100 156/95 10/09/16 10:12 156/95 10/09/16 07:56 98.3 100 20 156/95 98 Room Air 10/09/16 06:42 97.3 115 20 157/100 96 Room Air 10/09/16 05:32 97.9 74 18 168/91 100 Room Air 10/09/16 05:30 74 18 168/91 100 Room Air 10/09/16 04:35 97.9 10/09/16 04:30 98.9 74 18 168/ 100 Room Air 10/09/16 03:30 85 15 164/85 100 Room Air 10/09/16 02:30 77 16 148/89 100 Room Air 10/09/16 01:31 97.9 10/09/16 01:30 84 19 154/97 100 Room Air 10/09/16 00:47 97.9 78 16 191/95 99 Room Air 10/09/16 00:19 97.9 78 16 191/95 99 Room Air Intake and Output 10/08/16 10/09/16 19:00 07:00 Intake Total 2200 ml Balance 2200 ml IV Total 2200 ml # Voids 1 Laboratory Tests Test 10/09/16 00:40 10/09/16 00:45 White Blood Count 11.2 K/UL (4.8-10.8) H Red Blood Count 4.44 M/UL (4.20-5.40) Hemoglobin 14.1 G/DL (12.0-16.0) Hematocrit 42.0 % (37.0-47.0) Mean Corpuscular Volume 95 FL (80-99) Mean Corpuscular Hemoglobin 31.8 PG (27.0-31.0) H Mean Corpuscular Hemoglobin Concent 33.6 G/DL (32.0-36.0) Red Cell Distribution Width 11.8 % (11.6-14.8) Platelet Count 363 K/UL (150-450) Mean Platelet Volume 7.1 FL (6.5-10.1) Neutrophils (%) (Auto) 62.4 % (45.0-75.0) Lymphocytes (%) (Auto) 31.1 % (20.0-45.0) Monocytes (%) (Auto) 5.0 % (1.0-10.0) Eosinophils (%) (Auto) 0.6 % (0.0-3.0) Basophils (%) (Auto) 1.0 % (0.0-2.0) Prothrombin Time 9.4 SEC (9.30-11.50) Prothromb Time International Ratio 0.9 (0.9-1.1) Activated Partial Thromboplast Time 26 SEC (23-33) Sodium Level 140 mEQ/L (135-145) Potassium Level 3.6 mEQ/L (3.4-4.9) Chloride Level 99 mEQ/L (98-107) Carbon Dioxide Level 24 mEQ/L (20-30) Anion Gap 17 (5-15) H Blood Urea Nitrogen 12 mg/dL (7-23) Creatinine 1.4 mg/dL (0.5-0.9) H Estimat Glomerular Filtration Rate 47.3 mL/min (>60) Glucose Level 112 mg/dL (74-106) H Calcium Level 10.6 mg/dL (8.6-10.2) H Total Bilirubin < 0.2 mg/dL (0.0-1.2) Aspartate Amino Transf (AST/SGOT) 17 U/L (5-40) Alanine Aminotransferase (ALT/SGPT) 14 U/L (3-33) Alkaline Phosphatase 49 U/L (35-104) Total Protein 6.7 g/dL (6.6-8.7) Albumin 4.0 g/dL (3.5-5.2) Globulin 2.7 g/dL Albumin/Globulin Ratio 1.4 (1.0-2.7) Lipase 51 U/L (< 60) Serum Alcohol < 10 mg/dL Urine Color Pale yellow Urine Appearance Clear Urine pH 6 (4.5-8.0) Urine Specific [place] 1.020 (1.005-1.035) Urine Protein 1+ (NEGATIVE) H Urine Glucose (UA) Negative (NEGATIVE) Urine Ketones Negative (NEGATIVE) Urine Occult Blood Negative (NEGATIVE) Urine Nitrite Negative (NEGATIVE) Urine Bilirubin Negative (NEGATIVE) Urine Urobilinogen Normal MG/DL (0.0-1.0) Urine Leukocyte Esterase 1+ (NEGATIVE) H Urine RBC 0-2 /HPF (0 - 2) Urine WBC 2-4 /HPF (0 - 2) Urine Squamous Epithelial Cells Moderate /LPF (NONE/OCC) H Urine Bacteria Moderate /HPF (NONE) H Urine Opiates Screen Negative (NEGATIVE) Urine Barbiturates Screen Negative (NEGATIVE) Phencyclidine (PCP) Screen Negative (NEGATIVE) Urine Amphetamines Screen Negative (NEGATIVE) Urine Benzodiazepines Screen Negative (NEGATIVE) Urine Cocaine Screen Negative (NEGATIVE) Urine Marijuana (THC) Screen Positive (NEGATIVE) H Height (Feet): 5 Height (Inches): 7.00 Weight (Pounds): 125 Medications Current Medications Medications (Trade) Dose Ordered Sig/Mariano Route PRN Reason Start Time Stop Time Status Last Admin Dose Admin Acetaminophen (Tylenol) 650 mg Q4H PRN ORAL fever>100.5 10/09/16 09:00 11/08/16 08:59 10/09/16 10:12 Acetaminophen/ Hydrocodone Bitart ([place] 5/325) 1 tab Q6H PRN ORAL Mild Pain (Pain Scale 1-3) 10/09/16 13:45 10/16/16 13:44 Amlodipine Besylate (Norvasc) 10 mg DAILY ORAL 10/09/16 10:00 11/08/16 09:59 10/09/16 10:18 Clonidine HCl (Catapres) 0.1 mg Q4H PRN ORAL SBP>160 mmHg 10/09/16 13:30 11/08/16 13:29 Dextrose/ Electrolytes (D5 0.45%NS W/ KCl 20mEq) 1,000 ml @ 50 mls/hr Q20H IV 10/09/16 11:30 11/08/16 11:29 10/09/16 11:43 Diphenhydramine HCl (Benadryl) 25 mg Q4H PRN IVP Itching 10/09/16 14:00 11/08/16 13:59 Heparin Sodium (Porcine) (Heparin 5000 units/ml) 5,000 units EVERY 12 HOURS SUBQ 10/09/16 09:00 11/08/16 08:59 10/09/16 10:14 Hydrochlorothiazide 12.5 mg 12.5 mg DAILY ORAL 10/09/16 10:00 11/08/16 09:59 10/09/16 10:12 Lisinopril (Zestril) 10 mg DAILY ORAL 10/09/16 10:00 11/08/16 09:59 10/09/16 10:12 Morphine Sulfate (Morphine Sulfate) 2 mg Q4H PRN IVP Moderate Pain (Pain Scale 4-6) 10/09/16 13:45 10/16/16 13:44 Morphine Sulfate (Morphine Sulfate) 4 mg Q4H PRN IVP Severe Breakthru Pain (>7) 10/09/16 13:45 10/16/16 13:44 Ondansetron HCl (Zofran) 4 mg Q6H PRN IVP Nausea & Vomiting 10/09/16 09:00 11/08/16 08:59 10/09/16 10:11 Pantoprazole (Protonix) 40 mg DAILY IVP 10/10/16 09:00 11/09/16 08:59 Zolpidem Tartrate (Ambien) 5 mg HSPRN PRN ORAL Insomnia 10/09/16 21:00 11/08/16 20:59 Assessment/Plan Problem List: (1) Intractable nausea and vomiting ICD Codes: R11.2 - Nausea with vomiting, unspecified SNOMED: 941998499, 065000476 (2) Food poisoning ICD Codes: T62.91XA - Toxic effect of unspecified noxious substance eaten as food, accidental (unintentional), initial encounter SNOMED: 53415642 (3) Hypertension ICD Codes: I10 - Essential (primary) hypertension SNOMED: 49008075 Assessment/Plan npo IV fluids symtomatic treatment abx for pyuria. MARBELLA HOANG Oct 09, 2016 14:38
[2016-10-09] MEDS: Piperacillin/Tazobactam 3.375 GM in D5W 110 ML IVPB SCH ×2 (17:15→23:30)
[2016-10-09] MEDS ORDERED: Zolpidem 5mg tab ORAL PRN (21:00)
[2016-10-10 00:06] VITALS: BP 125/75
[2016-10-10 04:00] VITALS: BP 100/64
[2016-10-10] MEDS: Piperacillin/Tazobactam 3.375 GM in D5W 110 ML IVPB SCH ×3 (06:08→22:05)
[2016-10-10] MEDS: D5 1/2NS w/KCl 20mEq 1,000 ML IV SCH (06:09)
[2016-10-10 06:27] LABS: MEAN CORPUSCULAR HEMOGLOBIN 32.6 PG (27.0-31.0); MEAN CORPUSCULAR HGB CONC 34.5 G/DL (32.0-36.0); MEAN CORPUSCULAR VOLUME 95 FL (80-99); MEAN PLATELET VOLUME 6.7 FL (6.5-10.1); PLATELET COUNT 330 K/UL (150-450); RED BLOOD COUNT 3.94 M/UL (4.20-5.40); RED CELL DISTRIBUTION WIDTH 11.9 % (11.6-14.8); WHITE BLOOD COUNT 7.6 K/UL (4.8-10.8)
[2016-10-10 06:46] LABS: CALCIUM 9.5 mg/dL (8.6-10.2); CREATININE 1.2 mg/dL (0.5-0.9); GLOMERULAR FILTRATION RATE 56.6 mL/min (>60); POTASSIUM 4.1 mEQ/L (3.4-4.9)
[2016-10-10 08:00] VITALS: BP 110/61
[2016-10-10] MEDS ORDERED: Lisinopril 20mg tab ORAL SCH (09:00)
[2016-10-10] MEDS: Lisinopril 10mg tab ORAL SCH (09:08)
[2016-10-10] MEDS: Pantoprazole Inj IVP SCH (09:09)
[2016-10-10] MEDS: Heparin 5000 units/ml inj SUBQ SCH ×2 (09:17→22:06)
[2016-10-10 09:59] LABS: BAND NEUTROPHILS % (MANUAL) 0 % (0-8); BASOPHILS % (MANUAL) 0 % (0-2); EOSINOPHILS % (MANUAL) 3 % (0-3); LYMPHOCYTES % (MANUAL) 55 % (20-45); NEUTROPHILS % (MANUAL) 37 % (45-75); PLATELET ESTIMATE ADEQUATE; PLATELET MORPHOLOGY NORMAL; TOTAL CELLS COUNTED 100
[2016-10-10 10:00] LABS: HYPOCHROMASIA 1+
--- NOTE | 2016-10-10 11:45 | Consultation ---
Consult Note Consult Note ID Dic# [id number] MARIANNA YOST M.D. Oct 10, 2016 11:45
[2016-10-10 12:15] VITALS: BP 125/81
--- NOTE | 2016-10-10 13:13 | Diagnostic Imaging Report ---
Indication:Lower abdominal and pelvic pain Technique: Grayscale and duplex Doppler imaging of the pelvis performed utilizing a transabdominal scan and endovaginal scan. Comparison: None Findings: The uterus and both ovaries are not visualized consistent with the history of total hysterectomy and bilateral oophorectomy. There is a complex cystic-appearing mass in the right adnexa measuring approximately 6 cm. An adjacent, possibly connected nonvascular tubular cystic structure possibly with septation also noted. Impression: Complex cystic mass in the right adnexa of unknown etiology. This has the appearance of an ovarian cyst, but this diagnosis is discordant with the history of bilateral oophorectomy. Other possibilities include mesenteric or inflammatory cysts, postsurgical fluid collections such as lymphoceles or seromas.
--- NOTE | 2016-10-10 14:01 | GI Progress Note ---
Assessment/Plan Problems: (1) Abdominal pain ICD Codes: R10.9 - Unspecified abdominal pain SNOMED: 65753005, 223976381 Qualifiers: Qualified Codes: R10.84 - Generalized abdominal pain (2) Intractable nausea and vomiting ICD Codes: R11.2 - Nausea with vomiting, unspecified SNOMED: 661884219, 995870969 (3) Hypertension ICD Codes: I10 - Essential (primary) hypertension SNOMED: 50529451 (4) Food poisoning ICD Codes: T62.91XA - Toxic effect of unspecified noxious substance eaten as food, accidental (unintentional), initial encounter SNOMED: 37729745 (5) Epigastric pain ICD Codes: R10.13 - Epigastric pain SNOMED: 19145793 (6) Substance abuse ICD Codes: F19.10 - Other psychoactive substance abuse, uncomplicated SNOMED: 03832596 (7) Vomiting ICD Codes: R11.10 - Vomiting, unspecified SNOMED: 030938241 Status: unchanged Status Narrative Discussed with Dr. Gonzalez. Assessment/Plan Pevlic US >> Complex cystic mass in the right adnexa of unknown etiology. 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 Subjective Subjective abdominal pain Objective Last 24 Hour Vital Signs Date Time Temp Pulse Resp B/P Pulse Ox O2 Delivery O2 Flow Rate FiO2 10/10/16 12:15 97.2 60 17 125/81 100 Room Air 10/10/16 09:09 55 110/61 10/10/16 09:08 110/61 10/10/16 08:00 96.4 55 16 110/61 99 Room Air 10/10/16 04:00 98.1 64 18 100/64 98 Room Air 10/10/16 00:06 97.9 69 17 125/75 98 Room Air 10/09/16 20:03 98.1 104 18 137/84 99 Room Air 10/09/16 15:42 98.1 94 20 150/98 99 Room Air Intake and Output 10/09/16 10/10/16 19:00 07:00 Intake Total 1777.5 ml 790 ml Balance 1777.5 ml 790 ml Intake Oral 1400 ml 240 ml IV Total 377.5 ml 550 ml # Voids 13 4 Laboratory Tests Test 10/10/16 05:50 White Blood Count 7.6 K/UL (4.8-10.8) Red Blood Count 3.94 M/UL (4.20-5.40) L Hemoglobin 12.9 G/DL (12.0-16.0) Hematocrit 37.3 % (37.0-47.0) Mean Corpuscular Volume 95 FL (80-99) Mean Corpuscular Hemoglobin 32.6 PG (27.0-31.0) H Mean Corpuscular Hemoglobin Concent 34.5 G/DL (32.0-36.0) Red Cell Distribution Width 11.9 % (11.6-14.8) Platelet Count 330 K/UL (150-450) Mean Platelet Volume 6.7 FL (6.5-10.1) Neutrophils (%) (Auto) % (45.0-75.0) Lymphocytes (%) (Auto) % (20.0-45.0) Monocytes (%) (Auto) % (1.0-10.0) Eosinophils (%) (Auto) % (0.0-3.0) Basophils (%) (Auto) % (0.0-2.0) Differential Total Cells Counted 100 Neutrophils % (Manual) 37 % (45-75) L Lymphocytes % (Manual) 55 % (20-45) H Monocytes % (Manual) 5 % (1-10) Eosinophils % (Manual) 3 % (0-3) Basophils % (Manual) 0 % (0-2) Band Neutrophils 0 % (0-8) Platelet Estimate Adequate Platelet Morphology Normal Hypochromasia 1+ Sodium Level 138 mEQ/L (135-145) Potassium Level 4.1 mEQ/L (3.4-4.9) Chloride Level 97 mEQ/L (98-107) L Carbon Dioxide Level 28 mEQ/L (20-30) Anion Gap 13 (5-15) Blood Urea Nitrogen 6 mg/dL (7-23) L Creatinine 1.2 mg/dL (0.5-0.9) H Estimat Glomerular Filtration Rate 56.6 mL/min (>60) Glucose Level 103 mg/dL (74-106) Calcium Level 9.5 mg/dL (8.6-10.2) CA 125 Antigen Pending Height (Feet): 5 Height (Inches): 7.00 Weight (Pounds): 125 General Appearance: no apparent distress, alert, thin Cardiovascular: normal rate Respiratory/Chest: no respiratory distress Abdominal Exam: normal bowel sounds, non tender, soft Extremities: normal range of motion Aria Em N.P. Oct 10, 2016 14:01
--- NOTE | 2016-10-10 15:29 | Pulmonology Progress Note ---
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 Subjective ROS Limited/Unobtainable: No - no Interval Events: no new complains Allergies: Coded Allergies: PROPOXYPHENE (Verified Allergy, Mild, 11/03/08) Objective Last 24 Hour Vital Signs Date Time Temp Pulse Resp B/P Pulse Ox O2 Delivery O2 Flow Rate FiO2 10/10/16 12:15 97.2 60 17 125/81 100 Room Air 10/10/16 09:09 55 110/61 10/10/16 09:08 110/61 10/10/16 08:00 96.4 55 16 110/61 99 Room Air 10/10/16 04:00 98.1 64 18 100/64 98 Room Air 10/10/16 00:06 97.9 69 17 125/75 98 Room Air 10/09/16 20:03 98.1 104 18 137/84 99 Room Air 10/09/16 15:42 98.1 94 20 150/98 99 Room Air Intake and Output 10/09/16 10/10/16 19:00 07:00 Intake Total 1777.5 ml 790 ml Balance 1777.5 ml 790 ml Intake Oral 1400 ml 240 ml IV Total 377.5 ml 550 ml # Voids 13 4 General Appearance: WD/WN HEENT: normocephalic, atraumatic Respiratory/Chest: chest wall non-tender, lungs clear Abdomen: normal bowel sounds, soft, non tender Genitourinary: normal external genitalia Skin: no rash Microbiology Date/Time Source Procedure Growth Status 10/09/16 00:45 Urine,Clean Catch Urine Culture - Preliminary Staphylococcus Sp Coag Neg Resulted Laboratory Tests 10/10/16 05:50: White Blood Count 7.6, Red Blood Count 3.94L, Hemoglobin 12.9, Hematocrit 37.3, Mean Corpuscular Volume 95, Mean Corpuscular Hemoglobin 32.6H, Mean Corpuscular Hemoglobin Concent 34.5, Red Cell Distribution Width 11.9, Platelet Count 330, Mean Platelet Volume 6.7, Neutrophils (%) (Auto) , Lymphocytes (%) (Auto) , Monocytes (%) (Auto) , Eosinophils (%) (Auto) , Basophils (%) (Auto) , Differential Total Cells Counted 100, Neutrophils % (Manual) 37L, Lymphocytes % (Manual) 55H, Monocytes % (Manual) 5, Eosinophils % (Manual) 3, Basophils % ( Manual) 0, Band Neutrophils 0, Platelet Estimate Adequate, Platelet Morphology Normal, Hypochromasia 1+, Sodium Level 138, Potassium Level 4.1, Chloride Level 97L, Carbon Dioxide Level 28, Anion Gap 13, Blood Urea Nitrogen 6L, Creatinine 1.2H, Estimat Glomerular Filtration Rate 56.6, Glucose Level 103, Calcium Level 9.5, CA 125 Antigen [Pending] Current Medications Medications (Trade) Dose Ordered Sig/Mariano Route PRN Reason Start Time Stop Time Status Last Admin Dose Admin Acetaminophen (Tylenol) 650 mg Q4H PRN ORAL fever>100.5 10/09/16 09:00 11/08/16 08:59 10/09/16 10:12 Acetaminophen/ Hydrocodone Bitart ([place] 5/325) 1 tab Q6H PRN ORAL Mild Pain (Pain Scale 1-3) 10/09/16 13:45 10/16/16 13:44 10/09/16 22:43 Amlodipine Besylate (Norvasc) 10 mg DAILY ORAL 10/09/16 10:00 11/08/16 09:59 10/10/16 09:09 Clonidine HCl (Catapres) 0.1 mg Q4H PRN ORAL SBP>160 mmHg 10/09/16 13:30 11/08/16 13:29 Dextrose/ Electrolytes (D5 0.45%NS W/ KCl 20mEq) 1,000 ml @ 50 mls/hr Q20H IV 10/09/16 11:30 11/08/16 11:29 10/10/16 06:09 Diphenhydramine HCl 25 mg 25 mg Q4H PRN IVP Itching 10/09/16 14:00 11/08/16 13:59 Heparin Sodium (Porcine) (Heparin 5000 units/ml) 5,000 units EVERY 12 HOURS SUBQ 10/09/16 09:00 11/08/16 08:59 10/10/16 09:17 Hydrochlorothiazide 12.5 mg 12.5 mg DAILY ORAL 10/09/16 10:00 11/08/16 09:59 10/10/16 09:08 Lisinopril (Zestril) 10 mg DAILY ORAL 10/09/16 10:00 11/08/16 09:59 10/10/16 09:08 Morphine Sulfate (Morphine Sulfate) 2 mg Q4H PRN IVP Moderate Pain (Pain Scale 4-6) 10/09/16 13:45 10/16/16 13:44 Morphine Sulfate (Morphine Sulfate) 4 mg Q4H PRN IVP Severe Breakthru Pain (>7) 10/09/16 13:45 10/16/16 13:44 Ondansetron HCl (Zofran) 4 mg Q6H PRN IVP Nausea & Vomiting 10/09/16 09:00 11/08/16 08:59 10/09/16 10:11 Pantoprazole (Protonix) 40 mg DAILY IVP 10/10/16 09:00 11/09/16 08:59 10/10/16 09:09 Piperacillin Sod/ Tazobactam Sod/ Dextrose (Zosyn/D5W) 110 ml @ 27.5 mls/hr EVERY 8 HOURS IVPB 10/09/16 16:00 10/14/16 15:59 10/10/16 13:55 Zolpidem Tartrate (Ambien) 5 mg HSPRN PRN ORAL Insomnia 10/09/16 21:00 11/08/16 20:59 MARBELLA HOANG Oct 10, 2016 15:29
[2016-10-10 16:00] VITALS: BP 115/59
--- NOTE | 2016-10-10 19:30 | Consultation ---
DATE OF CONSULTATION: INFECTIOUS DISEASE CONSULTATION CONSULTING PHYSICIAN: Lucio Mcdonald M.D. REQUESTING PHYSICIAN: Russ Roa M.D. REASON FOR CONSULTATION: Evaluation of the patient for sepsis and antibiotic management. HISTORY OF PRESENT ILLNESS: The patient is a 56-year-old old female with multiple medical problems, who has been admitted to this medical center for a abdominal pain. The patient claims this is x2 weeks associated nausea and vomiting. According to her, she ate an outside food about two weeks ago and subsequent to that, she developed cramps in the abdomen, nausea and vomiting. She has been seen here several times in health care facility and one time she was admitted for three days. In paperwork, it was mentioned that the patient has been admitted with pyelonephritis, however, there is no evidence of antibiotics upon discharge. The patient now comes to this hospital with similar complaints, however, does not have diarrhea and no fever or chills or dysuria. PAST MEDICAL HISTORY: Hypertension. MEDICATIONS: Zosyn. ALLERGIES: Propoxyphene. FAMILY HISTORY: Noncontributory. REVIEW OF SYSTEMS: HEENT: No recent change in vision or hearing. Pulmonary: No cough or shortness of breath. Cardiovascular: No chest pain or palpitation. Gastrointestinal: Abdomen as mentioned above. Genitourinary: No dysuria. PHYSICAL EXAMINATION: VITAL SIGNS: Temperature 96.4 degrees, blood pressure 110/69, pulse 86, and respiratory rate 18. HEENT: Mild pale conjunctivae. No icterus. NECK: Supple. CHEST: Coarse breathing sounds. HEART: S1 and S2. ABDOMEN: Soft. Mild discomfort at the time of exam in all four quadrants. No rebound. EXTREMITIES: No cyanosis. NEUROLOGIC: Awake. LABORATORY AND DIAGNOSTIC DATA: White blood cells at the time of admission 11.2 and today is 7.2, hemoglobin 12.9, and platelet 230,000. Urinalysis shows 2-4 white blood cells. BUN 6 and creatinine 1.2. ALT, AST, and alkaline phosphatase unremarkable. Urine culture is growing Staph coagulase-negative staph, 40,000-50,000. Abdominal x-ray, no acute findings. Chest x-ray, no acute finding. ASSESSMENT: The patient is a 56-year-old female with 1. History of nausea and vomiting for about two weeks. 2. Abdominal discomfort. 3. Question recent history of urinary tract infection/pyelonephritis. Urine culture is growing coagulase-negative Staph (colonizer). 4. Hypertension. PLAN: 1. We will continue the patient on Zosyn for now. 2. Monitor CBC. 3. Monitor BMP. 4. If the patient stays stable and afebrile, we may discontinue antibiotics tomorrow. Thank you, Dr. Roa, for allowing me to participate in the care of this patient. I will follow the patient with you during this hospitalization. Lucio Mcdonald M.D. DR: LESLYE JOB#: [id number] CC:
[2016-10-10 20:25] VITALS: BP 110/77
[2016-10-11 00:06] VITALS: BP 108/64
[2016-10-11] MEDS: D5 1/2NS w/KCl 20mEq 1,000 ML IV SCH (03:30)
[2016-10-11 04:00] VITALS: BP 113/60
[2016-10-11 05:07] LABS: MEAN CORPUSCULAR HEMOGLOBIN 31.4 PG (27.0-31.0); MEAN CORPUSCULAR HGB CONC 33.2 G/DL (32.0-36.0); MEAN CORPUSCULAR VOLUME 95 FL (80-99); MEAN PLATELET VOLUME 7.2 FL (6.5-10.1); PLATELET COUNT 341 K/UL (150-450); RED BLOOD COUNT 3.91 M/UL (4.20-5.40); RED CELL DISTRIBUTION WIDTH 11.8 % (11.6-14.8); WHITE BLOOD COUNT 8.3 K/UL (4.8-10.8)
[2016-10-11 05:37] LABS: ANION GAP 9 (5-15); CALCIUM 9.7 mg/dL (8.6-10.2); CARBON DIOXIDE 28 mEQ/L (20-30); CHLORIDE 98 mEQ/L (98-107); CREATININE 1.1 mg/dL (0.5-0.9); GLOMERULAR FILTRATION RATE > 60 mL/min (>60); HEMOLYSIS 6; POTASSIUM 3.9 mEQ/L (3.4-4.9); SODIUM 135 mEQ/L (135-145)
[2016-10-11] MEDS: Piperacillin/Tazobactam 3.375 GM in D5W 110 ML IVPB SCH ×2 (05:37→13:26)
[2016-10-11 08:00] VITALS: BP 115/67
[2016-10-11] MEDS: Pantoprazole Inj IVP SCH (08:08)
[2016-10-11] MEDS: Heparin 5000 units/ml inj SUBQ SCH (08:14)
[2016-10-11] MEDS: Lisinopril 10mg tab ORAL SCH (09:27)
--- NOTE | 2016-10-11 10:51 | GI Progress Note ---
Assessment/Plan Problems: (1) Abdominal pain ICD Codes: R10.9 - Unspecified abdominal pain SNOMED: 63058542, 432887518 Qualifiers: Qualified Codes: R10.84 - Generalized abdominal pain (2) Intractable nausea and vomiting ICD Codes: R11.2 - Nausea with vomiting, unspecified SNOMED: 052641150, 484275074 (3) Hypertension ICD Codes: I10 - Essential (primary) hypertension SNOMED: 89500830 (4) Food poisoning ICD Codes: T62.91XA - Toxic effect of unspecified noxious substance eaten as food, accidental (unintentional), initial encounter SNOMED: 39130562 (5) Epigastric pain ICD Codes: R10.13 - Epigastric pain SNOMED: 41173891 (6) Substance abuse ICD Codes: F19.10 - Other psychoactive substance abuse, uncomplicated SNOMED: 60422228 (7) Vomiting ICD Codes: R11.10 - Vomiting, unspecified SNOMED: 903368882 Status: stable Status Narrative Discussed with Dr. Gonzalez. Assessment/Plan Pevlic US >> Complex cystic mass in the right adnexa of unknown etiology. 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 symptomatic treatment at this time Imodium prn zofran prn pain mgmt H2B simethicone prn regular diet, tolerating abx outpatient colonoscopy Subjective Subjective abdominal pain eps of diarrhea this morning Objective Last 24 Hour Vital Signs Date Time Temp Pulse Resp B/P Pulse Ox O2 Delivery O2 Flow Rate FiO2 10/11/16 09:27 127/86 10/11/16 09:26 62 127/86 10/11/16 08:38 96.1 10/11/16 08:00 96.1 55 17 115/67 97 Room Air 10/11/16 04:00 98.1 65 19 113/60 99 Room Air 10/11/16 00:06 98.4 58 19 108/64 97 Room Air 10/10/16 20:25 97.9 61 18 110/77 96 Room Air 10/10/16 16:00 97.9 57 18 115/59 98 Room Air 10/10/16 12:15 97.2 60 17 125/81 100 Room Air Intake and Output 10/10/16 10/11/16 19:00 07:00 Intake Total 1210.0 ml 890 ml Balance 1210.0 ml 890 ml Intake Oral 600 ml 240 ml IV Total 610.0 ml 650 ml # Voids 2 3 Laboratory Tests Test 10/11/16 04:30 White Blood Count 8.3 K/UL (4.8-10.8) Red Blood Count 3.91 M/UL (4.20-5.40) L Hemoglobin 12.2 G/DL (12.0-16.0) Hematocrit 36.9 % (37.0-47.0) L Mean Corpuscular Volume 95 FL (80-99) Mean Corpuscular Hemoglobin 31.4 PG (27.0-31.0) H Mean Corpuscular Hemoglobin Concent 33.2 G/DL (32.0-36.0) Red Cell Distribution Width 11.8 % (11.6-14.8) Platelet Count 341 K/UL (150-450) Mean Platelet Volume 7.2 FL (6.5-10.1) Neutrophils (%) (Auto) % (45.0-75.0) Lymphocytes (%) (Auto) % (20.0-45.0) Monocytes (%) (Auto) % (1.0-10.0) Eosinophils (%) (Auto) % (0.0-3.0) Basophils (%) (Auto) % (0.0-2.0) Sodium Level 135 mEQ/L (135-145) Potassium Level 3.9 mEQ/L (3.4-4.9) Chloride Level 98 mEQ/L (98-107) Carbon Dioxide Level 28 mEQ/L (20-30) Anion Gap 9 (5-15) Blood Urea Nitrogen 8 mg/dL (7-23) Creatinine 1.1 mg/dL (0.5-0.9) H Estimat Glomerular Filtration Rate > 60 mL/min (>60) Glucose Level 90 mg/dL (74-106) Calcium Level 9.7 mg/dL (8.6-10.2) Height (Feet): 5 Height (Inches): 7.00 Weight (Pounds): 125 General Appearance: no apparent distress, alert, thin Cardiovascular: normal rate Respiratory/Chest: normal breath sounds, no respiratory distress Abdominal Exam: normal bowel sounds, non tender, soft Extremities: normal range of motion Em,Aria Jose N.P. Oct 11, 2016 10:51
[2016-10-11 12:00] VITALS: BP 96/57
--- NOTE | 2016-10-11 14:54 | Pulmonology Progress Note ---
Assessment/Plan Problems: (1) Intractable nausea and vomiting (2) Food poisoning (3) Hypertension (4) Pyelonephritis (5) Adnexal mass Assessment/Plan improving advance diet cultures negative sub master evaluation, tumor markers. dc home with ALL SOURCE ANALYST evaluation Subjective ROS Limited/Unobtainable: No Interval Events: asymptomatic Allergies: Coded Allergies: PROPOXYPHENE (Verified Allergy, Mild, 11/03/08) Objective Last 24 Hour Vital Signs Date Time Temp Pulse Resp B/P Pulse Ox O2 Delivery O2 Flow Rate FiO2 10/11/16 12:00 97.5 64 17 96/57 95 Room Air 10/11/16 09:27 127/86 10/11/16 09:26 62 127/86 10/11/16 08:38 96.1 10/11/16 08:00 96.1 55 17 115/67 97 Room Air 10/11/16 04:00 98.1 65 19 113/60 99 Room Air 10/11/16 00:06 98.4 58 19 108/64 97 Room Air 10/10/16 20:25 97.9 61 18 110/77 96 Room Air 10/10/16 16:00 97.9 57 18 115/59 98 Room Air Intake and Output 10/10/16 10/11/16 19:00 07:00 Intake Total 1210.0 ml 890 ml Balance 1210.0 ml 890 ml Intake Oral 600 ml 240 ml IV Total 610.0 ml 650 ml # Voids 2 3 General Appearance: WD/WN HEENT: normocephalic, atraumatic Respiratory/Chest: chest wall non-tender, lungs clear Cardiovascular: normal peripheral pulses, normal rate Abdomen: normal bowel sounds, soft, non tender Extremities: no cyanosis Microbiology Date/Time Source Procedure Growth Status 10/09/16 00:45 Urine,Clean Catch Urine Culture - Final Staphylococcus Sp Coag Neg Complete Laboratory Tests 10/11/16 04:30: White Blood Count 8.3, Red Blood Count 3.91L, Hemoglobin 12.2, Hematocrit 36.9L , Mean Corpuscular Volume 95, Mean Corpuscular Hemoglobin 31.4H, Mean Corpuscular Hemoglobin Concent 33.2, Red Cell Distribution Width 11.8, Platelet Count 341, Mean Platelet Volume 7.2, Neutrophils (%) (Auto) , Lymphocytes (%) ( Auto) , Monocytes (%) (Auto) , Eosinophils (%) (Auto) , Basophils (%) (Auto) , Sodium Level 135, Potassium Level 3.9, Chloride Level 98, Carbon Dioxide Level 28, Anion Gap 9, Blood Urea Nitrogen 8, Creatinine 1.1H, Estimat Glomerular Filtration Rate > 60, Glucose Level 90, Calcium Level 9.7 Current Medications Medications (Trade) Dose Ordered Sig/Mariano Route PRN Reason Start Time Stop Time Status Last Admin Dose Admin Acetaminophen (Tylenol) 650 mg Q4H PRN ORAL fever>100.5 10/09/16 09:00 11/08/16 08:59 10/09/16 10:12 Acetaminophen/ Hydrocodone Bitart ([place] 5/325) 1 tab Q6H PRN ORAL Mild Pain (Pain Scale 1-3) 10/09/16 13:45 10/16/16 13:44 10/09/16 22:43 Amlodipine Besylate (Norvasc) 10 mg DAILY ORAL 10/09/16 10:00 11/08/16 09:59 10/11/16 09:26 Clonidine HCl (Catapres) 0.1 mg Q4H PRN ORAL SBP>160 mmHg 10/09/16 13:30 11/08/16 13:29 Dextrose/ Electrolytes (D5 0.45%NS W/ KCl 20mEq) 1,000 ml @ 50 mls/hr Q20H IV 10/09/16 11:30 11/08/16 11:29 10/11/16 03:30 Diphenhydramine HCl 25 mg 25 mg Q4H PRN IVP Itching 10/09/16 14:00 11/08/16 13:59 Heparin Sodium (Porcine) (Heparin 5000 units/ml) 5,000 units EVERY 12 HOURS SUBQ 10/09/16 09:00 11/08/16 08:59 10/11/16 08:14 Hydrochlorothiazide 12.5 mg 12.5 mg DAILY ORAL 10/09/16 10:00 11/08/16 09:59 10/11/16 09:26 Lisinopril (Zestril) 10 mg DAILY ORAL 10/09/16 10:00 11/08/16 09:59 10/11/16 09:27 Loperamide HCl (Imodium) 2 mg Q6H PRN NG Diarrhea 10/11/16 10:30 11/10/16 10:29 Morphine Sulfate (Morphine Sulfate) 2 mg Q4H PRN IVP Moderate Pain (Pain Scale 4-6) 10/09/16 13:45 10/16/16 13:44 10/11/16 08:08 Morphine Sulfate (Morphine Sulfate) 4 mg Q4H PRN IVP Severe Breakthru Pain (>7) 10/09/16 13:45 10/16/16 13:44 Ondansetron HCl (Zofran) 4 mg Q6H PRN IVP Nausea & Vomiting 10/09/16 09:00 11/08/16 08:59 10/09/16 10:11 Pantoprazole (Protonix) 40 mg DAILY IVP 10/10/16 09:00 11/09/16 08:59 10/11/16 08:08 Piperacillin Sod/ Tazobactam Sod/ Dextrose (Zosyn/D5W) 110 ml @ 27.5 mls/hr EVERY 8 HOURS IVPB 10/09/16 16:00 10/14/16 15:59 10/11/16 13:26 Zolpidem Tartrate (Ambien) 5 mg HSPRN PRN ORAL Insomnia 10/09/16 21:00 11/08/16 20:59 MARBELLA HOANG Oct 11, 2016 14:54
[2016-10-11 16:00] VITALS: BP 103/60
[2016-10-11] MEDS ORDERED: 1/2 NS 1000ml IV ONE (18:38)
[2016-10-11] MEDS ORDERED: NS 550ML IV ONE (18:38)
--- NOTE | 2016-10-12 13:44 | Discharge Summary ---
Discharge Summary Hospital Course Date of Admission Oct 09, 2016 at 05:10 Date of Discharge Oct 11, 2016 at 18:39 Admitting Diagnosis abdominal pain HPI Doreen Watters is a 56 year old female who was admitted on Oct 09, 2016 at 05:10 for Abdominal Pain Hospital Course [id number] Discharge Discharge Disposition Patient was discharged to Home (01) Discharge Diagnoses: Swapna Rock NP Oct 12, 2016 13:44
--- NOTE | 2016-10-13 03:45 | Discharge Summary 2 SIG ---
DATE OF ADMISSION: 10/09/2016 DATE OF DISCHARGE: 10/11/2016 CONSULTANTS: 1. Low Gonzalez M.D. 2. Lucio Mcdonald M.D. BRIEF HOSPITAL COURSE: The patient is a 56-year-old female with history of hypertension, who was at here recently and was then transferred to [facility] where she stayed for three days for treatment of pyelonephritis. She was discharged and came back to ED complaining of abdominal pain with intractable nausea and vomiting. At ED, CT scan showed heterogeneous irregular renal opacification bilaterally suspicious for bilateral acute pyelonephritis with bladder wall thickening and a right adnexal cystic mass. She was admitted for further inpatient care and was seen by Dr. Mcdonald. The patient was given Zosyn. She was also followed by GI consult. KUB showed abnormal gas collections, otherwise unremarkable. Urine toxicology positive for marijuana. Transvaginal and pelvic ultrasound showed a cystic mass in the right adnexa. CA 125-5 was normal. She was advised to follow up with Gynecology as outpatient. Urine culture was negative. Diet was advanced. The patient was discharged home to follow up with Gynecology. FINAL DIAGNOSES: 1. Acute pyelonephritis. 2. Food poisoning. 3. Adnexal mass. 4. Hypertension. Russ Roa M.D. I have been assigned to dictate discharge summary on this account and I was not involved in the patient's management. Swapna Rock N.P. DR: Dutch JOB#: [id number] CC: VLAD
== END 2016-10-11 18:39 | disposition home or self-care (01) | DRG 816 ==
LOC: EMR 00:46 → 3E 05:10 → EDBEDREQ 05:27
DX: T62.91XA Toxic effect of unspecified noxious substance eaten as food, accidental (unintentional), initial encounter (principal); N10 Acute pyelonephritis; R10.9 Unspecified abdominal pain; R11.2 Nausea with vomiting, unspecified; Z88.8 Allergy status to other drugs, medicaments and biological substances; I10 Essential (primary) hypertension; R19.09 Other intra-abdominal and pelvic swelling, mass and lump; F19.10 Other psychoactive substance abuse, uncomplicated
CPT/HCPCS: 36415; 71010; 74000; 76856; 80048; 80053; 80300; 80329; 81003; 83690; 85007; 85025; 85610; 85730; 86304; 87086; J2405; J2765

== ENCOUNTER 2017-04-01 18:41 | Emergency (ER) | payer OTHER ==
[~2017-04-01] VITALS: Ht 167.6 cm; Wt 56.7 kg
[2017-04-01 19:10] VITALS: BP 152/85
[2017-04-01] MEDS ORDERED: Morphine Sulfate 4mg/ml Inj IVP ONE (19:15)
[2017-04-01 19:45] LABS: APPEARANCE,URINE SLIGHTLY CLOUDY; KETONES,URINE NEGATIVE (NEGATIVE); LEUKOCYTE ESTERASE ,URINE 1+ (NEGATIVE); NITRITE,URINE NEGATIVE (NEGATIVE); PH,URINE 6 (4.5-8.0); PROTEIN,URINE 2+ (NEGATIVE); UROBILINOGEN,URINE NORMAL MG/DL (0.0-1.0)
[2017-04-01 19:52] LABS: MEAN CORPUSCULAR HEMOGLOBIN 30.8 PG (27.0-31.0); MEAN CORPUSCULAR HGB CONC 32.1 G/DL (32.0-36.0); MEAN CORPUSCULAR VOLUME 96 FL (80-99); PLATELET COUNT 367 K/UL (150-450); RED BLOOD COUNT 4.92 M/UL (4.20-5.40); RED CELL DISTRIBUTION WIDTH 12.1 % (11.6-14.8); WHITE BLOOD COUNT 15.3 K/UL (4.8-10.8)
[2017-04-01 19:57] LABS: ANION GAP 14 mmol/L (5-15); CALCIUM 10.8 MG/DL (8.5-10.1); CARBON DIOXIDE 24 MMOL/L (21-32); CHLORIDE 102 MMOL/L (98-107); CREATININE 1.4 MG/DL (0.55-1.30); GLOMERULAR FILTRATION RATE 47.3 mL/min (>60); POTASSIUM 3.8 MMOL/L (3.5-5.1); SODIUM 140 MMOL/L (136-145)
[2017-04-01 20:02] LABS: ALANINE AMINOTRANSFERASE 28 U/L (12-78); ASPARTATE AMINO TRANSFERASE 25 U/L (15-37); LIPASE 144 U/L (73-393); SQUAMOUS EPITHELIAL CELL,UR MANY /LPF (NONE/OCC); TOTAL PROTEIN 8.8 G/DL (6.4-8.2)
[2017-04-01 20:03] LABS: BACTERIA,URINE FEW /HPF; MUCUS,URINE FEW /LPF (NONE/OCC)
[2017-04-01 20:04] LABS: BAND NEUTROPHILS % (MANUAL) 0 % (0-8); BASOPHILS % (MANUAL) 0 % (0-2); EOSINOPHILS % (MANUAL) 0 % (0-3); LYMPHOCYTES % (MANUAL) 8 % (20-45); NEUTROPHILS % (MANUAL) 90 % (45-75); PLATELET ESTIMATE ADEQUATE; PLATELET MORPHOLOGY NORMAL; TOTAL CELLS COUNTED 100
[2017-04-01 20:20] VITALS: BP 142/80
[2017-04-01] MEDS ORDERED: cefTRIAXone 1 GM in NS 55 ML IVPB ONE (20:45)
[2017-04-01] MEDS ORDERED: KEFLEX500 MG ORAL (21:13)
[2017-04-01] MEDS ORDERED: ZOFRAN ODT4 MG ORAL (21:13)
[2017-04-01] MEDS ORDERED: RANITIDINE HCL150 MG ORAL (21:13)
[2017-04-01 21:15] VITALS: BP 136/80
[2017-04-01 21:20] VITALS: BP 142/80
--- NOTE | 2017-04-01 21:22 | Emergency Room Report ---
History of Present Illness General Chief Complaint: Nausea Source: Significant Other Present Illness HPI 56-year-old female presents ED complaining of abdominal pain and vomiting. Started yesterday after eating dinner. Patient states she's having food poisoning. Pain is cramping, 8/10, nonradiating. Denies fevers or chills. Notes nausea and vomiting. States there some diarrhea. Denies sick contacts recent travel. Denies recent antibiotic use. No other aggravating relieving factors. Denies any other associated symptoms Allergies: Coded Allergies: PROPOXYPHENE (Verified Allergy, Mild, 11/03/08) Patient History Past Medical History: HTN Past Surgical History: none Pertinent Family History: none Social History: Denies: smoking, alcohol use, drug use Now: No Immunizations: UTD Reviewed Nursing Documentation: PMH: Agreed, PSxH: Agreed Nursing Documentation-PMH Past Medical History: No History, Except For Hx Hypertension: Yes Review of Systems All Other Systems: negative except mentioned in HPI Physical Exam Vital Signs Date Time Temp Pulse Resp B/P (MAP) Pulse Ox O2 Delivery O2 Flow Rate FiO2 04/01/17 18:43 97.5 90 30 157/85 100 Room Air Sp02 EP Interpretation: reviewed, normal General Appearance: alert, GCS 15, non-toxic, mild distress Head: normocephalic, atraumatic Eyes: bilateral eye normal inspection, bilateral eye PERRL ENT: hearing grossly normal, normal pharynx, no angioedema, normal voice Neck: full range of motion, supple/symm/no masses Respiratory: chest non-tender, lungs clear, normal breath sounds, speaking full sentences Cardiovascular #1: regular rate, rhythm, no edema Cardiovascular #2: 2+ carotid (R), 2+ carotid (L), 2+ radial (R), 2+ radial (L) , 2+ dorsalis pedis (R), 2+ dorsalis pedis (L) Gastrointestinal: normal bowel sounds, soft, non-distended, no guarding, no rebound, tenderness Rectal: deferred Genitourinary: normal inspection, no CVA tenderness Musculoskeletal: back normal, gait/station normal, normal range of motion, non- tender Neurologic: alert, oriented x3, responsive, motor strength/tone normal, sensory intact, speech normal Psychiatric: judgement/insight normal, memory normal, mood/affect normal, no suicidal/homicidal ideation Reflexes: 3+ bicep (R), 3+ bicep (L), 3+ tricep (R), 3+ tricep (L), 3+ knee (R) , 3+ knee (L) Skin: normal color, no rash, warm/dry, well hydrated Lymphatic: no adenopathy Medical Decision Making Diagnostic Impression: Primary Impression: Gastroenteritis Additional Impression: UTI (urinary tract infection) Qualified Codes: N39.0 - Urinary tract infection, site not specified ER Course Hospital Course 56-year-old F presents to ED with cramping abdominal pain with vomiting, diarrhea differential diagnosis: gastritis, SBO, cholecystits, gastroenteritis Clinical course Patient placed on 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 After initial history and physical I ordered labs, IV fluids, Zofran and pepcid Labs - noted leukocytosis, electrolytes ok, LFTs normal, UA + bacteria Upon reassessment, patient states pain has improved. findings consistent with gastroenteritis abx given I feel this is a highly complex case requiring extensive working including EKG/ Rhythm strip, Xray/CT/US, Blood/urine lab work, repeat exams while in ED, and administration of strong opiates/narcotics for pain control, admission to hospital or close patient follow up. Diagnosis - gastroenteritis, UTI Stable and discharged to home with prescriptions for Zantac, zofran, keflex. Followup with PMD. Return to ED if symptoms recur or worsen Labs Test 04/01/17 19:15 White Blood Count 15.3 K/UL (4.8-10.8) Red Blood Count 4.92 M/UL (4.20-5.40) Hemoglobin 15.2 G/DL (12.0-16.0) Hematocrit 47.3 % (37.0-47.0) Mean Corpuscular Volume 96 FL (80-99) Mean Corpuscular Hemoglobin 30.8 PG (27.0-31.0) Mean Corpuscular Hemoglobin Concent 32.1 G/DL (32.0-36.0) Red Cell Distribution Width 12.1 % (11.6-14.8) Platelet Count 367 K/UL (150-450) Mean Platelet Volume 7.0 FL (6.5-10.1) Neutrophils (%) (Auto) % (45.0-75.0) Lymphocytes (%) (Auto) % (20.0-45.0) Monocytes (%) (Auto) % (1.0-10.0) Eosinophils (%) (Auto) % (0.0-3.0) Basophils (%) (Auto) % (0.0-2.0) Differential Total Cells Counted 100 Neutrophils % (Manual) 90 % (45-75) Lymphocytes % (Manual) 8 % (20-45) Monocytes % (Manual) 2 % (1-10) Eosinophils % (Manual) 0 % (0-3) Basophils % (Manual) 0 % (0-2) Band Neutrophils 0 % (0-8) Platelet Estimate Adequate Platelet Morphology Normal Red Blood Cell Morphology Normal Urine Color Yellow Urine Appearance Slightly cloudy Urine pH 6 (4.5-8.0) Urine Specific [place] 1.015 (1.005-1.035) Urine Protein 2+ (NEGATIVE) Urine Glucose (UA) Negative (NEGATIVE) Urine Ketones Negative (NEGATIVE) Urine Occult Blood 2+ (NEGATIVE) Urine Nitrite Negative (NEGATIVE) Urine Bilirubin Negative (NEGATIVE) Urine Urobilinogen Normal MG/DL (0.0-1.0) Urine Leukocyte Esterase 1+ (NEGATIVE) Urine RBC 5-10 /HPF (0 - 2) Urine WBC 2-4 /HPF (0 - 2) Urine Squamous Epithelial Cells Many /LPF (NONE/OCC) Urine Bacteria Few /HPF (NONE) Urine Mucus Few /LPF (NONE/OCC) Sodium Level 140 MMOL/L (136-145) Potassium Level 3.8 MMOL/L (3.5-5.1) Chloride Level 102 MMOL/L (98-107) Carbon Dioxide Level 24 MMOL/L (21-32) Anion Gap 14 mmol/L (5-15) Blood Urea Nitrogen 30 mg/dL (7-18) Creatinine 1.4 MG/DL (0.55-1.30) Estimat Glomerular Filtration Rate 47.3 mL/min (>60) Glucose Level 165 MG/DL (74-106) Calcium Level 10.8 MG/DL (8.5-10.1) Total Bilirubin 0.4 MG/DL (0.2-1.0) Aspartate Amino Transf (AST/SGOT) 25 U/L (15-37) Alanine Aminotransferase (ALT/SGPT) 28 U/L (12-78) Alkaline Phosphatase 89 U/L (46-116) Total Protein 8.8 G/DL (6.4-8.2) Albumin 4.5 G/DL (3.4-5.0) Globulin 4.3 g/dL Albumin/Globulin Ratio 1.0 (1.0-2.7) Lipase 144 U/L (73-393) Last Vital Signs Date Time Temp Pulse Resp B/P (MAP) Pulse Ox O2 Delivery O2 Flow Rate FiO2 04/01/17 20:20 97.8 78 18 142/80 99 Room Air Status: improved Disposition: HOME, SELF-CARE Condition: Stable Scripts Cephalexin* (KEFLEX*) 500 Mg Capsule 500 MG ORAL Q6H, #28 CAP 0 Refills Prov: IVIS CHÁVEZ M.D. 04/01/17 Ranitidine Hcl* (ZANTAC*) 150 Mg Tablet 150 MG ORAL TWICE A DAY, #30 TAB Prov: IVIS CHÁVEZ M.D. 04/01/17 Ondansetron Odt* (ZOFRAN ODT*) 4 Mg Tab.rapdis 4 MG ORAL Q6H Y for Nausea & Vomiting, #30 TAB 0 Refills Prov: IVIS CHÁVEZ M.D. 04/01/17 Patient Instructions: Viral Gastroenteritis, Adult, [id number] IVIS CHÁVEZ M.D. Apr 01, 2017 21:22
== END 2017-04-01 21:20 | disposition home or self-care (01) ==
LOC: EMR 19:02
DX: K52.9 Noninfective gastroenteritis and colitis, unspecified (principal); N39.0 Urinary tract infection, site not specified; I10 Essential (primary) hypertension
CPT/HCPCS: 36415; 80053; 81003; 83690; 85007; 85025; 96361; 96365; 96375; 99284; J0696; J2270; J2405; S0028

== ENCOUNTER 2017-06-30 17:56 | Emergency (ER) | payer OTHER ==
[~2017-06-30] VITALS: Ht 165.1 cm; Wt 59.0 kg
[~2017-06-30 17:56] MED LIST changes: +KEFLEX500 MG ORAL; +RANITIDINE HCL150 MG ORAL
[2017-06-30 17:58] VITALS: BP 128/94
[2017-06-30] MEDS ORDERED: Sodium Chloride 500ML 500 ML IV ONE ×2 (18:15→19:30)
[2017-06-30] MEDS ORDERED: Haloperidol 5mg/ml Inj IM ONE (18:15)
[2017-06-30 18:46] LABS: EOSINOPHILS % (AUTO) 0.5 % (0.0-3.0); HEMATOCRIT 49.4 % (37.0-47.0); HEMOGLOBIN 17.4 G/DL (12.0-16.0); LYMPHOCYTES % (AUTO) 41.4 % (20.0-45.0); MEAN CORPUSCULAR VOLUME 92 FL (80-99); MONOCYTES % (AUTO) 6.2 % (1.0-10.0); NEUTROPHILS % (AUTO) 50.9 % (45.0-75.0); PLATELET COUNT 320 K/UL (150-450); RED BLOOD COUNT 5.34 M/UL (4.20-5.40); RED CELL DISTRIBUTION WIDTH 11.8 % (11.6-14.8); WHITE BLOOD COUNT 11.7 K/UL (4.8-10.8)
--- NOTE | 2017-06-30 18:56 | Emergency Room Report ---
History of Present Illness General Chief Complaint: Abdominal Pain Source: Patient Present Illness HPI Patient is a 57-year-old female who presented for increased a periumbilical pain and vomiting. Patient had reported similar symptoms in the past multiple times. Patient had prior history of pyelonephritis. Patient reports having multiple episodes of vomiting without diarrhea. She denies any fever. The patient been present for 3 days and did not radiate. Allergies: Coded Allergies: PROPOXYPHENE (Verified Allergy, Mild, 11/03/08) Patient History Now: No Reviewed Nursing Documentation: PMH: Agreed, PSxH: Agreed Nursing Documentation-PMH Hx Hypertension: Yes Review of Systems All Other Systems: negative except mentioned in HPI Physical Exam Vital Signs Date Time Temp Pulse Resp B/P (MAP) Pulse Ox O2 Delivery O2 Flow Rate FiO2 06/30/17 17:48 98.0 86 13 129/82 98 Room Air 98.1 Sp02 EP Interpretation: reviewed, normal General Appearance: normal inspection, well appearing, no apparent distress, alert, GCS 15 Head: atraumatic ENT: normal ENT inspection, hearing grossly normal, normal voice Neck: normal inspection, full range of motion, supple, no bony tend Respiratory: normal inspection, lungs clear, normal breath sounds, no respiratory distress, no retraction, no wheezing Cardiovascular #1: regular rate, rhythm, no edema Gastrointestinal: normal inspection, normal bowel sounds, non tender, soft, no guarding, no hernia Genitourinary: no CVA tenderness Musculoskeletal: normal inspection, back normal, normal range of motion Neurologic: normal inspection, alert, responsive, speech normal Psychiatric: normal inspection, judgement/insight normal, mood/affect normal Skin: normal inspection, normal color, no rash Medical Decision Making Diagnostic Impression: Primary Impression: Gastroenteritis Additional Impressions: Dehydration Pancreatitis ER Course Patient presented for abdominal Pain. Differential diagnoses included ischemic bowel, appendicitis, perforated viscus, abdominal aortic aneurysm, inferior myocardial infarction, viral gastroenteritis. Because of complexity of patient' s case laboratory testing and imaging studies were ordered. The patient was given IM Haldol for nausea and was started on IV fluids. Patient was discussed with Dr. Hedrick for [facility] facility. Patient appears to be stable for transfer. Labs Test 06/30/17 18:23 06/30/17 19:10 White Blood Count 11.7 K/UL (4.8-10.8) Red Blood Count 5.34 M/UL (4.20-5.40) Hemoglobin 17.4 G/DL (12.0-16.0) Hematocrit 49.4 % (37.0-47.0) Mean Corpuscular Volume 92 FL (80-99) Mean Corpuscular Hemoglobin 32.6 PG (27.0-31.0) Mean Corpuscular Hemoglobin Concent 35.2 G/DL (32.0-36.0) Red Cell Distribution Width 11.8 % (11.6-14.8) Platelet Count 320 K/UL (150-450) Mean Platelet Volume 8.0 FL (6.5-10.1) Neutrophils (%) (Auto) 50.9 % (45.0-75.0) Lymphocytes (%) (Auto) 41.4 % (20.0-45.0) Monocytes (%) (Auto) 6.2 % (1.0-10.0) Eosinophils (%) (Auto) 0.5 % (0.0-3.0) Basophils (%) (Auto) 1.0 % (0.0-2.0) Sodium Level 133 MMOL/L (136-145) Potassium Level 2.8 MMOL/L (3.5-5.1) Chloride Level 92 MMOL/L (98-107) Carbon Dioxide Level 27 MMOL/L (21-32) Anion Gap 14 mmol/L (5-15) Blood Urea Nitrogen 63 mg/dL (7-18) Creatinine 3.0 MG/DL (0.55-1.30) Estimat Glomerular Filtration Rate 19.6 mL/min (>60) Glucose Level 112 MG/DL (74-106) Calcium Level 10.6 MG/DL (8.5-10.1) Total Bilirubin 0.4 MG/DL (0.2-1.0) Aspartate Amino Transf (AST/SGOT) 24 U/L (15-37) Alanine Aminotransferase (ALT/SGPT) 30 U/L (12-78) Alkaline Phosphatase 94 U/L (46-116) Total Protein 8.1 G/DL (6.4-8.2) Albumin 4.1 G/DL (3.4-5.0) Globulin 4.0 g/dL Albumin/Globulin Ratio 1.0 (1.0-2.7) Lipase 425 U/L (73-393) Urine Color Pale yellow Urine Appearance Clear Urine pH 5 (4.5-8.0) Urine Specific [place] 1.010 (1.005-1.035) Urine Protein 1+ (NEGATIVE) Urine Glucose (UA) Negative (NEGATIVE) Urine Ketones 1+ (NEGATIVE) Urine Occult Blood 2+ (NEGATIVE) Urine Nitrite Negative (NEGATIVE) Urine Bilirubin Negative (NEGATIVE) Urine Urobilinogen Normal MG/DL (0.0-1.0) Urine Leukocyte Esterase Negative (NEGATIVE) Urine RBC 2-4 /HPF (0 - 2) Urine WBC 0-2 /HPF (0 - 2) Urine Squamous Epithelial Cells Few /LPF (NONE/OCC) Urine Bacteria Few /HPF (NONE) Last Vital Signs Date Time Temp Pulse Resp B/P (MAP) Pulse Ox O2 Delivery O2 Flow Rate FiO2 06/30/17 17:58 98.1 95 17 128/94 100 Room Air 98.1 Status: unchanged Disposition: [facility] Condition: Serious Miguel Curtis Jun 30, 2017 18:56
[2017-06-30 19:04] LABS: ANION GAP 14 mmol/L (5-15); BLOOD UREA NITROGEN 63 mg/dL (7-18); CALCIUM 10.6 MG/DL (8.5-10.1); CARBON DIOXIDE 27 MMOL/L (21-32); CHLORIDE 92 MMOL/L (98-107); POTASSIUM 2.8 MMOL/L (3.5-5.1); SODIUM 133 MMOL/L (136-145)
[2017-06-30 19:06] VITALS: BP 159/91
[2017-06-30 19:08] LABS: ALANINE AMINOTRANSFERASE 30 U/L (12-78); ALBUMIN 4.1 G/DL (3.4-5.0); ALKALINE PHOSPHATASE 94 U/L (46-116); ASPARTATE AMINO TRANSFERASE 24 U/L (15-37); BILIRUBIN,TOTAL 0.4 MG/DL (0.2-1.0)
[2017-06-30] MEDS ORDERED: Morphine Sulfate 4mg/ml Inj IVP ONE (19:30)
[2017-06-30 19:35] VITALS: BP 154/88
[2017-06-30 20:01] LABS: APPEARANCE,URINE CLEAR; BILIRUBIN, URINE NEGATIVE (NEGATIVE); COLOR,URINE PALE YELLOW; GLUCOSE, URINE (UA) NEGATIVE (NEGATIVE); KETONES,URINE 1+ (NEGATIVE); LEUKOCYTE ESTERASE ,URINE NEGATIVE (NEGATIVE); NITRITE,URINE NEGATIVE (NEGATIVE); PH,URINE 5 (4.5-8.0); PROTEIN,URINE 1+ (NEGATIVE); UROBILINOGEN,URINE NORMAL MG/DL (0.0-1.0)
[2017-06-30 22:05] VITALS: BP 142/71
[2017-06-30 22:25] VITALS: BP 138/99
[2017-06-30 22:30] VITALS: BP 138/99
== END 2017-06-30 22:30 | disposition short-term general hospital (02) ==
LOC: EDBD 17:56 → EMR 18:31
DX: K52.9 Noninfective gastroenteritis and colitis, unspecified (principal); E86.0 Dehydration; K85.90 Acute pancreatitis without necrosis or infection, unspecified; I10 Essential (primary) hypertension
CPT/HCPCS: 36415; 80053; 81003; 83690; 85025; 96361; 96372; 96374; 96375; 99285; J1630; J2270; J7040; S0028; J8499

== ENCOUNTER 2019-10-12 11:53 | Emergency (ER) | payer OTHER ==
[~2019-10-12] VITALS: Ht 167.6 cm; Wt 56.7 kg
--- NOTE | 2019-10-12 12:00 | NUR ---
ED Nurse Note: pt ambulated to ED d/t abdominal pain noted with nausea and vomiting. Pt is AOx4, denies any diarrhea. Per pt, she stated that "she might ate something bad". Placed on bed and gown; hooked to night monitor.
[2019-10-12 12:15] VITALS: BP 214/108
[2019-10-12] MEDS ORDERED: Morphine Sulfate 4mg/ml Inj (IV USE ONLY) IVP ONE (12:15)
[2019-10-12 12:17] LABS: HEMATOCRIT 47.1 % (37.0-47.0); HEMOGLOBIN 16.3 G/DL (12.0-16.0); MEAN CORPUSCULAR VOLUME 90 FL (80-99); PLATELET COUNT 356 K/UL (150-450); RED BLOOD COUNT 5.25 M/UL (4.20-5.40); RED CELL DISTRIBUTION WIDTH 11.4 % (11.6-14.8); WHITE BLOOD COUNT 10.2 K/UL (4.8-10.8)
--- NOTE | 2019-10-12 12:45 | NUR ---
ED Nurse Note: pt unable to provide urine sample as of now. On bed, awake and alert, NAD, noted.
[2019-10-12 13:05] LABS: ANION GAP 14 mmol/L (5-15); BLOOD UREA NITROGEN 20 mg/dL (7-18); CALCIUM 10.1 MG/DL (8.5-10.1); CARBON DIOXIDE 26 MMOL/L (21-32); CHLORIDE 97 MMOL/L (98-107); CREATININE 1.7 MG/DL (0.55-1.30); POTASSIUM 3.6 MMOL/L (3.5-5.1); SODIUM 137 MMOL/L (136-145)
[2019-10-12 13:10] LABS: ALANINE AMINOTRANSFERASE 20 U/L (12-78); ALBUMIN 4.3 G/DL (3.4-5.0); ALKALINE PHOSPHATASE 78 U/L (46-116); ASPARTATE AMINO TRANSFERASE 16 U/L (15-37); BILIRUBIN,TOTAL 0.5 MG/DL (0.2-1.0)
[2019-10-12 13:33] LABS: APPEARANCE,URINE CLEAR; BILIRUBIN, URINE NEGATIVE (NEGATIVE); COLOR,URINE PALE YELLOW; GLUCOSE, URINE (UA) NEGATIVE (NEGATIVE); KETONES,URINE 3+ (NEGATIVE); LEUKOCYTE ESTERASE ,URINE NEGATIVE (NEGATIVE); NITRITE,URINE NEGATIVE (NEGATIVE); PH,URINE 7 (4.5-8.0); PROTEIN,URINE 2+ (NEGATIVE); UROBILINOGEN,URINE NORMAL MG/DL (0.0-1.0)
[2019-10-12] MEDS ORDERED: ONDANSETRON ODT4 MG BC (14:00)
[2019-10-12] MEDS ORDERED: FAMOTIDINE20 MG ORAL (14:00)
[2019-10-12 14:15] VITALS: BP 159/94
--- NOTE | 2019-10-12 14:15 | NUR ---
ER DISCHARGE NOTE: Patient is cleared to be discharged per ERMD, pt is aox4, on room air, with stable vital signs. pt was given dc and prescription instructions, pt was able to verbalize understanding, pt id band and iv site removed without complications. pt is able to ambulate with steady gait. pt took all belongings.
--- NOTE | 2019-10-12 14:16 | Emergency Room Report ---
History of Present Illness General Chief Complaint: Nausea, Vomiting, and Diarrhea Source: Patient Present Illness HPI 59-year-old female presents to ED complaining of abdominal pain with nausea and vomiting. Started last night after eating some bad food. Pain is epigastric, burning, 6 out of 10, nonradiating. Notes nausea and vomiting. Denies dysuria or diarrhea. Denies fevers or chills. Denies chest pain or shortness of breath. No other aggravating relieving factors. Denies any other associated symptoms Allergies: Coded Allergies: PROPOXYPHENE (Verified Allergy, Mild, 11/03/08) COVID-19 Screening Contact w/high risk pt: No Recent Travel to affected area: No Experienced COVID-19 symptoms?: No COVID-19 Testing performed HERBARIUM CURATOR: No Patient History Past Medical History: HTN Past Surgical History: none Pertinent Family History: none Social History: Denies: smoking, alcohol use, drug use Last Menstrual Period: na Now: No Immunizations: UTD Reviewed Nursing Documentation: PMH: Agreed; PSxH: Agreed Nursing Documentation-PMH Past Medical History: No History, Except For Hx Hypertension: Yes Review of Systems All Other Systems: negative except mentioned in HPI Physical Exam Vital Signs Date Time Temp Pulse Resp B/P (MAP) Pulse Ox O2 Delivery O2 Flow Rate FiO2 10/12/19 11:55 97.9 67 18 214/108 (143) 88 Room Air Sp02 EP Interpretation: reviewed, normal General Appearance: no apparent distress, alert, GCS 15, non-toxic Head: normocephalic, atraumatic Eyes: bilateral eye normal inspection, bilateral eye PERRL ENT: hearing grossly normal, normal pharynx, no angioedema, normal voice Neck: full range of motion, supple/symm/no masses Respiratory: chest non-tender, lungs clear, normal breath sounds, speaking full sentences Cardiovascular #1: regular rate, rhythm, no edema Cardiovascular #2: 2+ carotid (R), 2+ carotid (L), 2+ radial (R), 2+ radial (L) , 2+ dorsalis pedis (R), 2+ dorsalis pedis (L) Gastrointestinal: normal bowel sounds, soft, non-distended, no guarding, no rebound, tenderness - epigastric Rectal: deferred Genitourinary: normal inspection, no CVA tenderness Musculoskeletal: back normal, normal range of motion, gait/station normal, non- tender Neurologic: alert, motor strength/tone normal, oriented x3, sensory intact, responsive, speech normal Psychiatric: judgement/insight normal, memory normal, mood/affect normal, no suicidal/homicidal ideation Reflexes: 3+ bicep (R), 3+ bicep (L), 3+ tricep (R), 3+ tricep (L), 3+ knee (R) , 3+ knee (L) Skin: no rash Lymphatic: no adenopathy Medical Decision Making Diagnostic Impression: Primary Impression: Gastritis Qualified Codes: K29.00 - Acute gastritis without bleeding ER Course Hospital Course 59-year-old F presents to ED with epigastric pain with N/V. differential diagnosis: gastritis, SBO, cholecystits Clinical course Patient placed on stretcher. On monitoring coordinator. After initial history and physical I ordered labs, IV fluids, pepcid, zofran Labs - no leukocytosis, Cr 1.7, LFTs normal Upon reassessment, patient states pain has improved. findings consistent with gastritis. I discussed findings with patient. Safe for discharge for close outpatient follow-up. States she has a PMD I feel this is a highly complex case requiring extensive working including EKG/ Rhythm strip, Xray/CT/US, Blood/urine lab work, repeat exams while in ED, and administration of strong opiates/narcotics for pain control, admission to hospital or close patient follow up. Diagnosis - gastritis Stable and discharged to home with prescriptions for pepcid, zofran. Followup with PMD. Return to ED if symptoms recur or worsen Labs Test 10/12/19 12:08 10/12/19 13:28 White Blood Count 10.2 K/UL (4.8-10.8) Red Blood Count 5.25 M/UL (4.20-5.40) Hemoglobin 16.3 G/DL (12.0-16.0) Hematocrit 47.1 % (37.0-47.0) Mean Corpuscular Volume 90 FL (80-99) Mean Corpuscular Hemoglobin 31.1 PG (27.0-31.0) Mean Corpuscular Hemoglobin Concent 34.7 G/DL (32.0-36.0) Red Cell Distribution Width 11.4 % (11.6-14.8) Platelet Count 356 K/UL (150-450) Mean Platelet Volume 6.2 FL (6.5-10.1) Neutrophils (%) (Auto) % (45.0-75.0) Lymphocytes (%) (Auto) % (20.0-45.0) Monocytes (%) (Auto) % (1.0-10.0) Eosinophils (%) (Auto) % (0.0-3.0) Basophils (%) (Auto) % (0.0-2.0) Differential Total Cells Counted 100 Neutrophils % (Manual) 70 % (45-75) Lymphocytes % (Manual) 28 % (20-45) Monocytes % (Manual) 2 % (1-10) Eosinophils % (Manual) 0 % (0-3) Basophils % (Manual) 0 % (0-2) Band Neutrophils 0 % (0-8) Platelet Estimate Adequate Platelet Morphology Normal Red Blood Cell Morphology Normal Sodium Level 137 MMOL/L (136-145) Potassium Level 3.6 MMOL/L (3.5-5.1) Chloride Level 97 MMOL/L (98-107) Carbon Dioxide Level 26 MMOL/L (21-32) Anion Gap 14 mmol/L (5-15) Blood Urea Nitrogen 20 mg/dL (7-18) Creatinine 1.7 MG/DL (0.55-1.30) Estimat Glomerular Filtration Rate 37.5 mL/min (>60) Glucose Level 145 MG/DL (74-106) Calcium Level 10.1 MG/DL (8.5-10.1) Total Bilirubin 0.5 MG/DL (0.2-1.0) Aspartate Amino Transf (AST/SGOT) 16 U/L (15-37) Alanine Aminotransferase (ALT/SGPT) 20 U/L (12-78) Alkaline Phosphatase 78 U/L (46-116) Total Protein 8.5 G/DL (6.4-8.2) Albumin 4.3 G/DL (3.4-5.0) Globulin 4.2 g/dL Albumin/Globulin Ratio 1.0 (1.0-2.7) Lipase 207 U/L (73-393) Urine Color Pale yellow Urine Appearance Clear Urine pH 7 (4.5-8.0) Urine Specific [place] 1.010 (1.005-1.035) Urine Protein 2+ (NEGATIVE) Urine Glucose (UA) Negative (NEGATIVE) Urine Ketones 3+ (NEGATIVE) Urine Blood 1+ (NEGATIVE) Urine Nitrite Negative (NEGATIVE) Urine Bilirubin Negative (NEGATIVE) Urine Urobilinogen Normal MG/DL (0.0-1.0) Urine Leukocyte Esterase Negative (NEGATIVE) Urine RBC 0-2 /HPF (0 - 2) Urine WBC 0 /HPF (0 - 2) Urine Squamous Epithelial Cells Few /LPF (NONE/OCC) Urine Bacteria Few /HPF (NONE) Last Vital Signs Date Time Temp Pulse Resp B/P (MAP) Pulse Ox O2 Delivery O2 Flow Rate FiO2 10/12/19 12:42 97.9 10/12/19 12:15 18 214/108 88 Room Air 10/12/19 11:55 67 Status: improved Disposition: HOME, SELF-CARE Condition: Stable Scripts Ondansetron Odt* (ZOFRAN ODT*) 4 Mg Tab.rapdis 4 MG BC EVERY 6 HOURS PRN for Nausea & Vomiting, #20 TAB 0 Refills Prov: Yovany Armstrong MD 10/12/19 Famotidine* (Pepcid 20mg tablet*) 20 Mg Tablet 20 MG ORAL DAILY, #30 TAB 0 Refills Prov: Yovany Armstrong MD 10/12/19 Patient Instructions: Gastritis, Adult, [id number] Yovany Armstrong MD Oct 12, 2019 14:16
== END 2019-10-12 14:15 | disposition home or self-care (01) ==
LOC: EMR 12:36
DX: K29.00 Acute gastritis without bleeding (principal); I10 Essential (primary) hypertension; Z88.8 Allergy status to other drugs, medicaments and biological substances
CPT/HCPCS: 36415; 80053; 81003; 83690; 85007; 85025; 96361; 96374; 96375; J2270; J2405; J7030; S0028; Z7502; 99284

== ENCOUNTER 2019-10-15 01:59 | Inpatient (IN) | payer OTHER ==
[~2019-10-15] VITALS: Ht 167.6 cm; Wt 50.3 kg
[~2019-10-15 01:59] MED LIST changes: +FAMOTIDINE20 MG ORAL; +ONDANSETRON ODT4 MG BC
--- NOTE | 2019-10-15 02:10 | Emergency Room Report ---
History of Present Illness General Chief Complaint: Nausea Source: Patient Present Illness HPI Patient is a 59-year-old female presents after increased nausea and vomiting. Recent ER visit for similar symptoms. Previous denies any diarrhea or bloody stools. No hematemesis. She smokes marijuana occasionally. Does not smoke daily. Reports having worsening pain after eating some food earlier in the day. Allergies: Coded Allergies: PROPOXYPHENE (Verified Allergy, Mild, 11/03/08) COVID-19 Screening Contact w/high risk pt: No Recent Travel to affected area: No Experienced COVID-19 symptoms?: No COVID-19 Testing performed OPERATIONS RESEARCH SCIENTIST: No Patient History Past Medical History: see triage record Reviewed Nursing Documentation: PMH: Agreed; PSxH: Agreed Nursing Documentation-PMH Hx Hypertension: Yes Review of Systems All Other Systems: negative except mentioned in HPI Physical Exam Vital Signs Date Time Temp Pulse Resp B/P (MAP) Pulse Ox O2 Delivery O2 Flow Rate FiO2 10/15/19 02:03 98.1 87 18 147/103 (118) 99 Room Air Sp02 EP Interpretation: reviewed, normal General Appearance: normal inspection, alert, GCS 15, Chronically Ill Head: atraumatic ENT: normal ENT inspection, hearing grossly normal, normal voice Neck: normal inspection, full range of motion, supple, no bony tend Respiratory: normal inspection, lungs clear, normal breath sounds, no respiratory distress, no retraction, no wheezing Cardiovascular #1: regular rate, rhythm, no edema Gastrointestinal: normal inspection, normal bowel sounds, non tender, soft, no guarding, no hernia Genitourinary: no CVA tenderness Musculoskeletal: normal inspection, back normal, normal range of motion Neurologic: alert, motor strength/tone normal, research administrator III-XII nml as tested, oriented x3, responsive, speech normal, normal inspection Psychiatric: normal inspection, judgement/insight normal, mood/affect normal Medical Decision Making Diagnostic Impression: Primary Impression: Epigastric pain Additional Impressions: Dehydration Renal insufficiency ER Course Patient presented for epigastric pain. Differential diagnosis included but was not limited to gastritis, pancreatitis, peptic ulcer disease, marijuana hyperemesis, inferior PR among others. Because of complexity of patient's case laboratory tests and imaging studies were ordered. EKG interpreted by me showed normal sinus rhythm with nonspecific ST changes. Patient was given aspirin as well as Pepcid. Patient was noted to have some elevation of her lipase consistent with pancreatitis. Patient was given IV fluids as well as IV antiemetics. Laboratory testing also showed some troponin elevation as well as evidence of renal insufficiency compared to prior labs from 2 days ago. Patient will be hospitalized for further evaluation and treatment. Chest x-ray 1 view interpreted by me showed normal cardiac size without evident infiltrate normal mediastinum. Patient was given Haldol for nausea. Also given pain medications.Dr. Maura Strickland was contacted for inpatient observation due to panel physician Labs Test 10/15/19 02:23 10/15/19 02:40 White Blood Count 13.5 K/UL (4.8-10.8) Red Blood Count 4.49 M/UL (4.20-5.40) Hemoglobin 14.7 G/DL (12.0-16.0) Hematocrit 39.1 % (37.0-47.0) Mean Corpuscular Volume 87 FL (80-99) Mean Corpuscular Hemoglobin 32.7 PG (27.0-31.0) Mean Corpuscular Hemoglobin Concent 37.5 G/DL (32.0-36.0) Red Cell Distribution Width 10.9 % (11.6-14.8) Platelet Count 246 K/UL (150-450) Mean Platelet Volume 6.9 FL (6.5-10.1) Neutrophils (%) (Auto) 54.5 % (45.0-75.0) Lymphocytes (%) (Auto) 35.7 % (20.0-45.0) Monocytes (%) (Auto) 8.2 % (1.0-10.0) Eosinophils (%) (Auto) 0.2 % (0.0-3.0) Basophils (%) (Auto) 1.4 % (0.0-2.0) Prothrombin Time 10.3 SEC (9.30-11.50) Prothromb Time International Ratio 0.9 (0.9-1.1) Activated Partial Thromboplast Time 25 SEC (23-33) Sodium Level 133 MMOL/L (136-145) Potassium Level 4.0 MMOL/L (3.5-5.1) Chloride Level 95 MMOL/L (98-107) Carbon Dioxide Level 27 MMOL/L (21-32) Anion Gap 12 mmol/L (5-15) Blood Urea Nitrogen 56 mg/dL (7-18) Creatinine 2.6 MG/DL (0.55-1.30) Estimat Glomerular Filtration Rate 22.9 mL/min (>60) Glucose Level 105 MG/DL (74-106) Calcium Level 9.1 MG/DL (8.5-10.1) Total Bilirubin 0.8 MG/DL (0.2-1.0) Aspartate Amino Transf (AST/SGOT) 23 U/L (15-37) Alanine Aminotransferase (ALT/SGPT) 13 U/L (12-78) Alkaline Phosphatase 60 U/L (46-116) Troponin I 0.228 ng/mL (0.000-0.056) Total Protein 6.9 G/DL (6.4-8.2) Albumin 3.5 G/DL (3.4-5.0) Globulin 3.4 g/dL Albumin/Globulin Ratio 1.0 (1.0-2.7) Lipase 796 U/L (73-393) Urine Color Pale yellow Urine Appearance Clear Urine pH 5 (4.5-8.0) Urine Specific [place] 1.020 (1.005-1.035) Urine Protein 2+ (NEGATIVE) Urine Glucose (UA) Negative (NEGATIVE) Urine Ketones Negative (NEGATIVE) Urine Blood 1+ (NEGATIVE) Urine Nitrite Negative (NEGATIVE) Urine Bilirubin Negative (NEGATIVE) Urine Urobilinogen Normal MG/DL (0.0-1.0) Urine Leukocyte Esterase Negative (NEGATIVE) Urine RBC 0-2 /HPF (0 - 2) Urine WBC 0 /HPF (0 - 2) Urine Squamous Epithelial Cells Few /LPF (NONE/OCC) Urine Bacteria None /HPF (NONE) Urine Opiates Screen Negative (NEGATIVE) Urine Barbiturates Screen Negative (NEGATIVE) Phencyclidine (PCP) Screen Negative (NEGATIVE) Urine Amphetamines Screen Negative (NEGATIVE) Urine Benzodiazepines Screen Negative (NEGATIVE) Urine Cocaine Screen Positive (NEGATIVE) Urine Marijuana (THC) Screen Positive (NEGATIVE) EKG Diagnostic Results Rate: normal Rhythm: NSR ST Segments: no acute changes Last Vital Signs Date Time Temp Pulse Resp B/P (MAP) Pulse Ox O2 Delivery O2 Flow Rate FiO2 10/15/19 02:03 98.1 87 18 147/103 (118) 99 Room Air Status: improved Disposition: PLACE IN OBSERVATION Condition: Stable Miguel Curtis MD Oct 15, 2019 02:10
[2019-10-15] MEDS ORDERED: Morphine Sulfate 4mg/ml Inj (IV USE ONLY) IVP ONE (02:15)
[2019-10-15] MEDS ORDERED: Omnipaque-300 100ml vial INJ PRN (02:15)
[2019-10-15] MEDS ORDERED: Haloperidol Lactate 5 MG in D5W 55 ML IVPB ONE (02:30)
[2019-10-15 02:32] VITALS: BP 137/92
[2019-10-15 02:35] LABS: BASOPHILS % (AUTO) 1.4 % (0.0-2.0); EOSINOPHILS % (AUTO) 0.2 % (0.0-3.0); HEMATOCRIT 39.1 % (37.0-47.0); HEMOGLOBIN 14.7 G/DL (12.0-16.0); LYMPHOCYTES % (AUTO) 35.7 % (20.0-45.0); MEAN CORPUSCULAR VOLUME 87 FL (80-99); MONOCYTES % (AUTO) 8.2 % (1.0-10.0); NEUTROPHILS % (AUTO) 54.5 % (45.0-75.0); PLATELET COUNT 246 K/UL (150-450); RED BLOOD COUNT 4.49 M/UL (4.20-5.40); RED CELL DISTRIBUTION WIDTH 10.9 % (11.6-14.8); WHITE BLOOD COUNT 13.5 K/UL (4.8-10.8)
[2019-10-15 02:47] LABS: ANION GAP 12 mmol/L (5-15); BLOOD UREA NITROGEN 56 mg/dL (7-18); CALCIUM 9.1 MG/DL (8.5-10.1); CARBON DIOXIDE 27 MMOL/L (21-32); CHLORIDE 95 MMOL/L (98-107); CREATININE 2.6 MG/DL (0.55-1.30); SODIUM 133 MMOL/L (136-145)
[2019-10-15 02:48] LABS: INR 0.9 (0.9-1.1)
[2019-10-15 02:52] LABS: ALANINE AMINOTRANSFERASE 13 U/L (12-78); ALBUMIN 3.5 G/DL (3.4-5.0); ALKALINE PHOSPHATASE 60 U/L (46-116); ASPARTATE AMINO TRANSFERASE 23 U/L (15-37); BILIRUBIN,TOTAL 0.8 MG/DL (0.2-1.0)
[2019-10-15 02:52] LABS: APPEARANCE,URINE CLEAR; COLOR,URINE PALE YELLOW; GLUCOSE, URINE (UA) NEGATIVE (NEGATIVE); KETONES,URINE NEGATIVE (NEGATIVE); PH,URINE 5 (4.5-8.0); PROTEIN,URINE 2+ (NEGATIVE)
[2019-10-15 02:53] LABS: BILIRUBIN, URINE NEGATIVE (NEGATIVE); LEUKOCYTE ESTERASE ,URINE NEGATIVE (NEGATIVE); NITRITE,URINE NEGATIVE (NEGATIVE); UROBILINOGEN,URINE NORMAL MG/DL (0.0-1.0)
[2019-10-15] MEDS ORDERED: NAPROXEN500 M2 ORAL (03:15)
[2019-10-15] MEDS ORDERED: Nitroglycerin Subl 0.4mg tab SL PRN (03:30)
[2019-10-15] MEDS ORDERED: Aspirin Baby 81mg ORAL ONE (03:30)
[2019-10-15 05:00] VITALS: BP 136/91
--- NOTE | 2019-10-15 05:21 | Diagnostic Imaging Report ---
EXAM: CT Abdomen and Pelvis With Intravenous Contrast CLINICAL HISTORY: ABD PAIN TECHNIQUE: Axial computed tomography images of the abdomen and pelvis with intravenous contrast. CTDI is 3.1 mGy and DLP is 156 mGy-cm. One or more of the following dose reduction techniques were used: automated exposure control, adjustment of the mA and/or kV according to patient size, use of iterative reconstruction technique. COMPARISON: 10/04/16 FINDINGS: Lung bases: Unremarkable. No mass. No consolidation. ABDOMEN: Liver: Unremarkable. No mass. Gallbladder and bile ducts: Unremarkable. No calcified stones. No ductal dilation. Pancreas: Unremarkable. No mass. No ductal dilation. Spleen: Unremarkable. No splenomegaly. Adrenals: Unremarkable. No mass. Kidneys and ureters: Unremarkable. No solid mass. No hydronephrosis. Stomach and bowel: No bowel obstruction. No definite bowel wall thickening though evaluation somewhat limited by absence of enteric contrast and under distention of bowel loops. Mildly prominent well- formed stool seen within the colon. PELVIS: Appendix: No findings to suggest acute appendicitis. Bladder: Unremarkable. No mass. Reproductive: Again seen is a simple right adnexal cystic lesion, slightly increased in size since the prior exam and now measuring up to 6. 4 cm in diameter, as compared to 5.4 cm on the prior exam 3 years ago. Postsurgical changes consistent with hysterectomy. ABDOMEN and PELVIS: Intraperitoneal space: Unremarkable. No free air. No significant fluid collection. Bones/joints: No acute fracture. No dislocation. Soft tissues: Unremarkable. Vasculature: Unremarkable. No abdominal aortic aneurysm. Lymph nodes: Unremarkable. No enlarged lymph nodes. IMPRESSION: No definite acute inflammatory or obstructive process is identified within the abdomen or pelvis. Simple appearing right adnexal cyst, slightly increased in size since the prior exam 3 years ago.
--- NOTE | 2019-10-15 07:52 | Cardiac Electrophysiology PN ---
Subjective Subjective [id number] Objective Last 24 Hour Vital Signs Date Time Temp Pulse Resp B/P (MAP) Pulse Ox O2 Delivery O2 Flow Rate FiO2 10/15/19 06:00 98.0 85 19 136/91 97 Room Air 10/15/19 05:00 136/91 10/15/19 03:24 98.0 10/15/19 03:22 137/92 10/15/19 02:32 85 19 137/92 97 Room Air 10/15/19 02:03 98.1 87 18 147/103 (118) 99 Room Air Intake and Output 10/14/19 10/15/19 19:00 07:00 Intake Total 50 ml Balance 50 ml Intake Oral 50 ml Laboratory Tests Test 10/15/19 02:23 10/15/19 02:40 White Blood Count 13.5 K/UL (4.8-10.8) H Red Blood Count 4.49 M/UL (4.20-5.40) Hemoglobin 14.7 G/DL (12.0-16.0) Hematocrit 39.1 % (37.0-47.0) Mean Corpuscular Volume 87 FL (80-99) Mean Corpuscular Hemoglobin 32.7 PG (27.0-31.0) H Mean Corpuscular Hemoglobin Concent 37.5 G/DL (32.0-36.0) H Red Cell Distribution Width 10.9 % (11.6-14.8) L Platelet Count 246 K/UL (150-450) Mean Platelet Volume 6.9 FL (6.5-10.1) Neutrophils (%) (Auto) 54.5 % (45.0-75.0) Lymphocytes (%) (Auto) 35.7 % (20.0-45.0) Monocytes (%) (Auto) 8.2 % (1.0-10.0) Eosinophils (%) (Auto) 0.2 % (0.0-3.0) Basophils (%) (Auto) 1.4 % (0.0-2.0) Prothrombin Time 10.3 SEC (9.30-11.50) Prothromb Time International Ratio 0.9 (0.9-1.1) Activated Partial Thromboplast Time 25 SEC (23-33) Sodium Level 133 MMOL/L (136-145) L Potassium Level 4.0 MMOL/L (3.5-5.1) Chloride Level 95 MMOL/L (98-107) L Carbon Dioxide Level 27 MMOL/L (21-32) Anion Gap 12 mmol/L (5-15) Blood Urea Nitrogen 56 mg/dL (7-18) H Creatinine 2.6 MG/DL (0.55-1.30) H Estimat Glomerular Filtration Rate 22.9 mL/min (>60) Glucose Level 105 MG/DL (74-106) Calcium Level 9.1 MG/DL (8.5-10.1) Total Bilirubin 0.8 MG/DL (0.2-1.0) Aspartate Amino Transf (AST/SGOT) 23 U/L (15-37) Alanine Aminotransferase (ALT/SGPT) 13 U/L (12-78) Alkaline Phosphatase 60 U/L (46-116) Troponin I 0.228 ng/mL (0.000-0.056) Total Protein 6.9 G/DL (6.4-8.2) Albumin 3.5 G/DL (3.4-5.0) Globulin 3.4 g/dL Albumin/Globulin Ratio 1.0 (1.0-2.7) Lipase 796 U/L (73-393) H Urine Color Pale yellow Urine Appearance Clear Urine pH 5 (4.5-8.0) Urine Specific [place] 1.020 (1.005-1.035) Urine Protein 2+ (NEGATIVE) H Urine Glucose (UA) Negative (NEGATIVE) Urine Ketones Negative (NEGATIVE) Urine Blood 1+ (NEGATIVE) H Urine Nitrite Negative (NEGATIVE) Urine Bilirubin Negative (NEGATIVE) Urine Urobilinogen Normal MG/DL (0.0-1.0) Urine Leukocyte Esterase Negative (NEGATIVE) Urine RBC 0-2 /HPF (0 - 2) Urine WBC 0 /HPF (0 - 2) Urine Squamous Epithelial Cells Few /LPF (NONE/OCC) Urine Bacteria None /HPF (NONE) Urine Opiates Screen Negative (NEGATIVE) Urine Barbiturates Screen Negative (NEGATIVE) Phencyclidine (PCP) Screen Negative (NEGATIVE) Urine Amphetamines Screen Negative (NEGATIVE) Urine Benzodiazepines Screen Negative (NEGATIVE) Urine Cocaine Screen Positive (NEGATIVE) H Urine Marijuana (THC) Screen Positive (NEGATIVE) H Brandon Granado MD Oct 15, 2019 07:52
[2019-10-15 08:00] VITALS: BP 124/76
[2019-10-15] MEDS ORDERED: Acetaminophen 500mg (ES) tab ORAL PRN (08:45)
[2019-10-15] MEDS: D5NS 1,000 ML IV SCH ×2 (08:50→20:51)
[2019-10-15 08:57] LABS: ANION GAP 6 mmol/L (5-15); BLOOD UREA NITROGEN 44 mg/dL (7-18); CALCIUM 8.2 MG/DL (8.5-10.1); CARBON DIOXIDE 28 MMOL/L (21-32); CHLORIDE 101 MMOL/L (98-107); CREATININE 1.9 MG/DL (0.55-1.30); SODIUM 135 MMOL/L (136-145)
--- NOTE | 2019-10-15 09:04 | Consultation ---
Consult Note Consult Note I am asked to evaluate the patient at the request of Dr. Strickland for renal failure. Patient interviewed, examined, records data reviewed. Patient denies any history of previous kidney problem. Patient is a 59-year-old female presents after increased nausea and vomiting. Recent ER visit for similar symptoms. Previous denies any diarrhea or bloody stools. No hematemesis. She smokes marijuana occasionally. Does not smoke daily. Reports having worsening pain after eating some food earlier in the day. Allergies: PROPOXYPHENE (Verified Allergy, Mild, 11/03/08) COVID-19 Screening Contact w/high risk pt: No Recent Travel to affected area: No Experienced COVID-19 symptoms?: No COVID-19 Testing performed RADIATION THERAPY TECHNOLOGIST: No Hx Hypertension: Yes Medication list reviewed, list includes multiple blood pressure medication including diuretics lisinopril Norvasc. On the list of patient's medication Naprosyn is also recorded. . Assessment/Plan Renal failure, most likely acute superimposed on underlying chronic kidney disease Possible hypertensive kidney disease, because of chronic kidney disease Acute renal failure probably partly due to dehydration And, partly related to nephrotoxic's like Naprosyn and or lisinopril Suggestions: Stop diuretics, start to hydrate slowly Keep the blood pressure in check Avoid nephrotoxic's, keep Naprosyn and lisinopril on hold Urine studies Monitor renal parameters Kidney ultrasound Discussed with gas engine performance engineer I spent an additional 36 minutes on review of medical records including prior hospital records,consult notes, progress notes, procedures ,imaging labs, hemodynamics, and other clinical documentation. Over 35 min Reilly Hernandez MD Oct 15, 2019 09:04
[2019-10-15 09:05] LABS: CREATINE KINASE 53 U/L (26-308)
[2019-10-15 09:09] LABS: ALANINE AMINOTRANSFERASE 16 U/L (12-78); ALBUMIN/GLOBULIN RATIO 1.2 (1.0-2.7); ALKALINE PHOSPHATASE 52 U/L (46-116); ASPARTATE AMINO TRANSFERASE 12 U/L (15-37); BILIRUBIN,TOTAL 0.6 MG/DL (0.2-1.0); CHOLESTEROL 225 MG/DL (< 200); GAMMA GLUTAMYL TRANSPEPTIDASE 22 U/L (5-85); HDL CHOLESTEROL 75 MG/DL (40-60); LACTATE DEHYDROGENASE 142 U/L (81-234); PHOSPHORUS 2.8 MG/DL (2.5-4.9); TRIGLYCERIDES 72 MG/DL (30-150)
--- NOTE | 2019-10-15 10:11 | Diagnostic Imaging Report ---
Indication: Chest pain Technique: One view of the chest Comparison: 10/09/2016 Findings: The lungs and pleural spaces are clear. The heart size is normal. There is no significant interim change Impression: Negative
--- NOTE | 2019-10-15 11:10 | Diagnostic Imaging Report ---
Indication: Abnormal renal function tests, acute renal failure Technique: Grayscale and duplex images of the kidneys, retroperitoneum, and bladder were obtained. Comparison: Abdomen pelvis CT of earlier the same day Findings: Right kidney measures 8.8 cm in length. Left kidney measures 8.3 cm in length. Both kidneys demonstrate normal echogenicity. No hydronephrosis. No focal abnormality. Normal inferior vena cava. Bladder is normal. Bilateral ureteral jets are demonstrated. A 6.7 cm unilocular cyst is seen in the pelvis just to the right of midline. This is also demonstrated on recent CT scan. Impression: Somewhat small kidneys bilaterally. No evidence of hydronephrosis or obstructive uropathy 6.7 cm unilocular pelvic cyst. Based on recent CT scan, likely of gynecologic origin. Recommend dedicated pelvic and endovaginal sonography for further evaluation.
--- NOTE | 2019-10-15 11:45 | General Progress Note ---
Assessment/Plan Problem List: (1) Abdominal pain ICD Codes: R10.9 - Unspecified abdominal pain SNOMED: 20003437 (2) Renal insufficiency ICD Codes: N28.9 - Disorder of kidney and ureter, unspecified SNOMED: 742111508, 450701297 (3) Epigastric pain ICD Codes: R10.13 - Epigastric pain SNOMED: 13986743 (4) Gastritis ICD Codes: K29.70 - Gastritis, unspecified, without bleeding SNOMED: 7227727 (5) Intractable nausea and vomiting ICD Codes: R11.2 - Nausea with vomiting, unspecified SNOMED: 382817395, 839585718 Assessment/Plan: ppi clears CT reviewed drug screen fu nephrology EGD if needed Subjective ROS Limited/Unobtainable: Yes Allergies: Coded Allergies: PROPOXYPHENE (Verified Allergy, Mild, 11/03/08) Objective Last 24 Hour Vital Signs Date Time Temp Pulse Resp B/P (MAP) Pulse Ox O2 Delivery O2 Flow Rate FiO2 10/15/19 09:00 Room Air 10/15/19 08:24 Room Air 10/15/19 07:28 92 10/15/19 06:00 98.0 85 19 136/91 97 Room Air 10/15/19 05:00 136/91 10/15/19 03:24 98.0 10/15/19 03:22 137/92 10/15/19 02:32 85 19 137/92 97 Room Air 10/15/19 02:03 98.1 87 18 147/103 (118) 99 Room Air Intake and Output 10/14/19 10/15/19 19:00 07:00 Intake Total 50 ml Balance 50 ml Intake Oral 50 ml Laboratory Tests 10/15/19 02:23: White Blood Count 13.5H, Red Blood Count 4.49, Hemoglobin 14.7, Hematocrit 39.1 , Mean Corpuscular Volume 87, Mean Corpuscular Hemoglobin 32.7H, Mean Corpuscular Hemoglobin Concent 37.5H, Red Cell Distribution Width 10.9L, Platelet Count 246, Mean Platelet Volume 6.9, Neutrophils (%) (Auto) 54.5, Lymphocytes (%) (Auto) 35.7, Monocytes (%) (Auto) 8.2, Eosinophils (%) (Auto) 0.2, Basophils (%) (Auto) 1.4, Prothrombin Time 10.3, Prothromb Time International Ratio 0.9, Activated Partial Thromboplast Time 25, Sodium Level 133L, Potassium Level 4.0, Chloride Level 95L, Carbon Dioxide Level 27, Anion Gap 12, Blood Urea Nitrogen 56H, Creatinine 2.6H, Estimat Glomerular Filtration Rate 22.9, Glucose Level 105, Calcium Level 9.1, Total Bilirubin 0.8, Aspartate Amino Transf (AST/SGOT) 23, Alanine Aminotransferase (ALT/SGPT) 13, Alkaline Phosphatase 60, Troponin I 0.228H, Total Protein 6.9, Albumin 3.5, Globulin 3.4 , Albumin/Globulin Ratio 1.0, Lipase 796H 10/15/19 02:40: Urine Color Pale yellow, Urine Appearance Clear, Urine pH 5, Urine Specific Martin 1.020, Urine Protein 2+H, Urine Glucose (UA) Negative, Urine Ketones Negative, Urine Blood 1+H, Urine Nitrite Negative, Urine Bilirubin Negative, Urine Urobilinogen Normal, Urine Leukocyte Esterase Negative, Urine RBC 0-2, Urine WBC 0, Urine Squamous Epithelial Cells Few, Urine Bacteria None, Urine Opiates Screen Negative, Urine Barbiturates Screen Negative, Phencyclidine (PCP ) Screen Negative, Urine Amphetamines Screen Negative, Urine Benzodiazepines Screen Negative, Urine Cocaine Screen PositiveH, Urine Marijuana (THC) Screen PositiveH 10/15/19 08:20: Sodium Level 135L, Potassium Level 4.0, Chloride Level 101, Carbon Dioxide Level 28, Anion Gap 6, Blood Urea Nitrogen 44H, Creatinine 1.9H, Estimat Glomerular Filtration Rate 33.0, Glucose Level 105, Calcium Level 8.2L, Total Bilirubin 0.6, Aspartate Amino Transf (AST/SGOT) 12L, Alanine Aminotransferase ( ALT/SGPT) 16, Alkaline Phosphatase 52, Total Protein 5.6L, Albumin 3.0L, Globulin 2.6, Albumin/Globulin Ratio 1.2, Uric Acid 5.6, Phosphorus Level 2.8, Magnesium Level 2.1, Gamma Glutamyl Transpeptidase 22, Lactate Dehydrogenase 142 , Total Creatine Kinase 53, C-Reactive Protein, Quantitative < 0.4, Triglycerides Level 72, Cholesterol Level 225H, LDL Cholesterol 120H, HDL Cholesterol 75H, Cholesterol/HDL Ratio 3.0L, Thyroid Stimulating Hormone (TSH) 2.670 Height (Feet): 5 Height (Inches): 6.00 Weight (Pounds): 111 General Appearance: no apparent distress EENT: normal ENT inspection Neck: normal alignment Cardiovascular: normal rate Respiratory/Chest: decreased breath sounds Abdomen: normal bowel sounds, non tender, soft Extremities: non-tender Low Gonzalez MD Oct 15, 2019 11:45
[2019-10-15 12:00] VITALS: BP 126/81
[2019-10-15] MEDS: dilTIAZem HCl 30mg tab ORAL SCH ×2 (13:15→22:16)
[2019-10-15] MEDS: Docusate 100mg cap ORAL SCH ×2 (13:15→17:14)
[2019-10-15 16:00] VITALS: BP 129/77
--- NOTE | 2019-10-15 19:45 | Consultation ---
DATE OF CONSULTATION: 10/15/2019 CARDIOLOGY CONSULTATION CONSULTING PHYSICIAN: Brandon Granado MD. REFERRING PHYSICIAN: Maura Matt MD. REASON FOR CONSULTATION: Tachycardia and hypertension in the patient with abdominal pain. HISTORY OF PRESENT ILLNESS: The patient is a 59-year-old lady with history of small-bowel obstruction in the past, who presents to the emergency room with increased nausea and vomiting. The patient had recent ER visit for similar symptoms. The patient has not had diarrhea, bloody stool, or hematemesis. The patient's blood pressure here was 147/103 with pulse of 87 and respirations of 18. The patient was also noted to have renal insufficiency with BUN of 56 and creatinine of 2.6. Troponin was elevated at 0.228. At the time of my evaluation, the patient denies any chest pain or shortness of breath. REVIEW OF SYSTEMS: Negative other than what was mentioned in the history of present illness. PAST MEDICAL HISTORY: As mentioned above. FAMILY HISTORY: Noncontributory. SOCIAL HISTORY: Denies street drugs. PHYSICAL EXAMINATION: VITAL SIGNS: Blood pressure 136/91, pulse 85, respirations 19, she is afebrile. HEAD AND NECK: Showed no JVD. LUNGS: Clear. CARDIOVASCULAR: Shows regular S1 and S2 with no gallop. ABDOMEN: Soft. EXTREMITIES: No pitting edema. LABORATORY DATA: Labs show white count 13.5, hemoglobin of 14.7, hematocrit 39, and platelet count of 246,000. Sodium 132, potassium 4.0, BUN of 56, creatinine 2.6. Troponin 0.228 . Urine-tox screen is positive for cocaine and marijuana. ASSESSMENT AND PLAN: 1. Troponin elevation. This is likely due to the patient's renal failure with creatinine 2.6, but also could be due to vasospasm in view of the patient's cocaine use. Avoid beta-elmo. Repeat cardiac enzymes, EKG, and echocardiogram and start her on Cardizem 30 t.i.d. 2. Hypertension. Start Cardizem 30 mg t.i.d. at this time. 3. Acute renal failure. Further evaluation by Nephrology. 4. Polysubstance abuse including cocaine and marijuana. Avoid beta-blockers. 5. Abdominal pain in the patient with history of prior small-bowel obstruction. Thank you very much for allowing me to participate in the care of this patient. Please do not hesitate to contact me for any questions regarding my evaluation. Brandon Granado M.D. DR: ALVIN JOB#: [id number] CC:
[2019-10-15 20:00] VITALS: BP 124/74
--- NOTE | 2019-10-15 22:45 | Consultation ---
DATE OF CONSULTATION: 10/15/2019 INFECTIOUS DISEASE CONSULTATION CONSULTING PHYSICIAN: Karson Nolen MD. PRIMARY ATTENDING: Maura Matt MD. REASON FOR CONSULTATION: Leukocytosis. HISTORY OF PRESENT ILLNESS: This is a 59-year-old female admitted today with nausea, vomiting, abdominal pain in the epigastric area. Patient had recent history of visit to ER with similar problem on 10/12/2019, but the symptoms did not become better. Also had multiple admissions in the past couple of years because of gastroenteritis and abdominal pain starting from 2005. All of them are ER visits. PAST MEDICAL HISTORY: Hypertension and GI problem. ALLERGIES: Has allergy to propoxyphene. MEDICATIONS: Getting diltiazem, Colace, Protonix, Zofran, nitroglycerin. SOCIAL HISTORY: . Smokes marijuana occasionally. REVIEW OF SYSTEMS: Limited, patient currently is sleeping. PHYSICAL EXAMINATION: VITAL SIGNS: Temperature 96.8, pulse 69, blood pressure 126/81. GENERAL APPEARANCE: No acute distress. HEART: Normal rate. LUNGS: Clear. ABDOMEN: Soft. EXTREMITIES: No edema. LABORATORY AND DIAGNOSTIC DATA: WBC 13.5, hemoglobin 14.7, hematocrit 39.1, platelets is 246. Sodium 135, potassium 4, chloride 101, bicarbonate 28, BUN 44, creatinine 1.9, glucose is 105. Troponin is 0.228. Albumin is 3. HDL is 75 and LDL is 120. Lipase is 796. CT scan of abdomen and pelvis, no acute inflammatory or obstructive process. Chest x-ray negative. Renal ultrasound, somewhat small kidneys bilaterally. No hydronephrosis or obstruction. A 6.7 cm pelvic cyst. IMPRESSION: 1. Leukocytosis. 2. Acute pancreatitis. 3. Has history of recurrent gastritis. 4. Acute renal failure. 5. Dehydration. 6. Hypertension. RECOMMENDATION: Observe off antibiotic. We will follow up clinically. At the end of my exam, I thank Dr. Matt for involving me in the care of this patient. Karson Nolen M.D. DR: Kian JOB#: [id number] CC:
[2019-10-16] VITALS: BP 137/74
--- NOTE | 2019-10-16 02:45 | History and Physical Report ---
DATE OF ADMISSION: 10/15/2019 HISTORY OF PRESENT ILLNESS: The patient was admitted for pancreatitis, has epigastric pain and vomiting. The patient also has acute renal failure, and elevated troponin. was admitted also for pancreatitis as well. The patient denies diarrhea. Denies shortness of breath. Denies cough. Denies fever or chills. Did have increased nausea and vomiting. PAST MEDICAL HISTORY: Significant for hypertension, GERD, as well as hypertension. PAST SURGICAL HISTORY: Denies. ALLERGIES: Propoxyphene. SOCIAL HISTORY: The patient denies history of smoking. Denies history of alcohol abuse. Denies history of drug abuse. MEDICATIONS: Norvasc, famotidine, and lisinopril. FAMILY HISTORY: Noncontributory. REVIEW OF SYSTEMS: HEENT: Denies headaches. PULMONARY: Denies shortness of breath. Denies cough. CARDIOVASCULAR: Denies chest pain. Denies orthopnea. GASTROINTESTINAL: Reports abdominal pain and vomiting for a couple of days. EXTREMITIES: Denies pain in lower extremity. CENTRAL NERVOUS SYSTEM: Denies changes in speech pattern. Feels very weak. PHYSICAL EXAMINATION: VITAL SIGNS: Temperature is 98.7, pulse 74, blood pressure 124/74. HEENT: PERRLA. NECK: supple. CHEST: Clear to auscultation. CARDIOVASCULAR: Regular rate and rhythm. No murmurs or extra sounds. GASTROINTESTINAL: Epigastric tenderness. No rebound. No organomegaly. Abdomen is soft. EXTREMITIES: No edema. She is able to move extremities. LABORATORY DATA: WBC of 13.5, hemoglobin of 14.7, platelets of 246. Sodium 133, potassium of 4, BUN of 56, creatinine 2.6, and glucose of 105. Troponin 0.228. ASSESSMENT AND PLAN: Elevated troponin, acute renal failure, dehydration, leukocytosis, pancreatitis, elevated lipase, vomiting, acute renal failure, elevated troponin. I have consulted Dr. Gonzalez, Dr. Karson Nolen, Dr. Granado, and Dr. Hernandez to help with the management of above-mentioned abnormalities and symptoms and abnormal event, laboratory briceno. The patient initially kept n.p.o. and give IV fluids. Maura Matt M.D. DR: EZIO JOB#: [id number] CC:
[2019-10-16 04:00] VITALS: BP 118/74
[2019-10-16] MEDS: dilTIAZem HCl 30mg tab ORAL SCH (05:55)
[2019-10-16 07:13] LABS: ALANINE AMINOTRANSFERASE 11 U/L (12-78); ALBUMIN 2.8 G/DL (3.4-5.0); ALKALINE PHOSPHATASE 47 U/L (46-116); ANION GAP 4 mmol/L (5-15); ASPARTATE AMINO TRANSFERASE 15 U/L (15-37); BILIRUBIN,TOTAL 0.6 MG/DL (0.2-1.0); BLOOD UREA NITROGEN 23 mg/dL (7-18); CALCIUM 8.7 MG/DL (8.5-10.1); CARBON DIOXIDE 29 MMOL/L (21-32); CHLORIDE 105 MMOL/L (98-107); CREATININE 1.6 MG/DL (0.55-1.30); POTASSIUM 4.3 MMOL/L (3.5-5.1); SODIUM 138 MMOL/L (136-145)
[2019-10-16 07:14] LABS: BASOPHILS % (AUTO) 1.2 % (0.0-2.0); EOSINOPHILS % (AUTO) 1.2 % (0.0-3.0); HEMATOCRIT 33.1 % (37.0-47.0); HEMOGLOBIN 11.7 G/DL (12.0-16.0); LYMPHOCYTES % (AUTO) 46.8 % (20.0-45.0); MEAN CORPUSCULAR VOLUME 90 FL (80-99); MONOCYTES % (AUTO) 8.3 % (1.0-10.0); NEUTROPHILS % (AUTO) 42.6 % (45.0-75.0); PLATELET COUNT 223 K/UL (150-450); RED BLOOD COUNT 3.69 M/UL (4.20-5.40); RED CELL DISTRIBUTION WIDTH 11.5 % (11.6-14.8); WHITE BLOOD COUNT 10.1 K/UL (4.8-10.8)
[2019-10-16 07:47] LABS: PHOSPHORUS 2.7 MG/DL (2.5-4.9)
[2019-10-16 08:00] VITALS: BP 127/79
[2019-10-16] MEDS: Docusate 100mg cap ORAL SCH ×3 (09:44→18:01)
--- NOTE | 2019-10-16 09:44 | Nephrology Progress Note ---
Assessment/Plan Problem List: (1) ELINOR (acute kidney injury) (2) Dehydration (3) Renal failure (ARF), acute on chronic (4) Hypertension (5) Substance abuse Assessment: Cocaine and marijuana in urine Assessment Renal failure, most likely acute superimposed on underlying chronic kidney disease Possible hypertensive kidney disease, because of chronic kidney disease Acute renal failure probably partly due to dehydration And, partly related to nephrotoxic's like Naprosyn and or lisinopril Cocaine and marijuana in urine tox screen Plan Stop diuretics, start to hydrate slowly Keep the blood pressure in check, will replace Cardizem with Norvasc and add as needed hydralazine today Avoid nephrotoxic's, keep Naprosyn and lisinopril on hold Urine studies Monitor renal parameters 2D echocardiogram results noted 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 No evidence of hydronephrosis or obstructive uropathy 6.7 cm unilocular pelvic cyst. Based on recent CT scan, likely of gynecologic origin. Recommend dedicated pelvic and endovaginal sonography for further evaluation. Subjective ROS Limited/Unobtainable: No Constitutional: Reports: malaise, other - Feels better Objective Objective Last 24 Hour Vital Signs Date Time Temp Pulse Resp B/P (MAP) Pulse Ox O2 Delivery O2 Flow Rate FiO2 10/16/19 08:00 97.9 58 18 127/79 (95) 97 10/16/19 05:55 74 129/78 10/16/19 04:00 98.3 69 20 118/74 (89) 98 10/16/19 04:00 55 10/16/19 00:00 97.6 76 20 137/74 (95) 98 10/16/19 00:00 56 10/15/19 22:16 74 127/87 10/15/19 21:20 Room Air 10/15/19 20:00 59 10/15/19 20:00 98.7 74 18 124/74 (91) 97 74 10/15/19 16:00 96.8 79 20 129/77 (94) 98 10/15/19 15:12 58 10/15/19 13:15 69 126/81 10/15/19 12:00 96.8 69 18 126/81 (96) 96 10/15/19 11:44 68 Intake and Output 10/15/19 10/16/19 19:00 07:00 Intake Total 720 ml Balance 720 ml Intake Oral 720 ml # Voids 4 Current Medications Medications (Trade) Dose Ordered Sig/Mariano Route PRN Reason Start Time Stop Time Status Last Admin Dose Admin Acetaminophen (Tylenol) 500 mg Q6H PRN ORAL Mild Pain (Pain Scale 1-3) 10/15/19 08:45 11/14/19 08:44 Dextrose/Sodium Chloride 1,000 ml @ 75 mls/hr [id number] IV 10/15/19 08:00 11/14/19 07:59 10/15/19 20:51 Diltiazem HCl (Cardizem) 30 mg EVERY 8 HOURS ORAL 10/15/19 14:00 11/14/19 13:59 10/16/19 05:55 Docusate Sodium (Colace) 100 mg THREE TIMES A DAY ORAL 10/15/19 13:00 11/14/19 12:59 10/15/19 17:14 Iohexol (OMNIPAQUE-300 100ml) 100 ml NOW PRN INJ Radiology Procedure 10/15/19 02:15 10/17/19 02:14 Nitroglycerin (Ntg) 0.4 mg Q5M PRN SL Prn Chest Pain 10/15/19 03:30 11/14/19 03:29 10/15/19 03:22 Ondansetron HCl (Zofran) 4 mg Q6H PRN IVP Nausea & Vomiting 10/15/19 08:45 11/14/19 08:44 Pantoprazole (Protonix) 40 mg EVERY 12 HOURS ORAL 10/15/19 09:15 11/14/19 09:14 10/15/19 20:50 Laboratory Tests 10/15/19 13:15: Urine Random Sodium 39, Urine Opiates Screen Negative, Urine Barbiturates Screen Negative, Phencyclidine (PCP) Screen Negative, Urine Amphetamines Screen Negative, Urine Benzodiazepines Screen Negative, Urine Cocaine Screen PositiveH , Urine Marijuana (THC) Screen PositiveH 10/16/19 06:15: White Blood Count 10.1, Red Blood Count 3.69L, Hemoglobin 11.7L, Hematocrit 33.1L, Mean Corpuscular Volume 90, Mean Corpuscular Hemoglobin 31.7H, Mean Corpuscular Hemoglobin Concent 35.3, Red Cell Distribution Width 11.5L, Platelet Count 223, Mean Platelet Volume 7.3, Neutrophils (%) (Auto) 42.6L, Lymphocytes (%) (Auto) 46.8H, Monocytes (%) (Auto) 8.3, Eosinophils (%) (Auto) 1.2, Basophils (%) (Auto) 1.2, Sodium Level 138, Potassium Level 4.3, Chloride Level 105, Carbon Dioxide Level 29, Anion Gap 4L, Blood Urea Nitrogen 23H, Creatinine 1.6H, Estimat Glomerular Filtration Rate 40.1, Glucose Level 88, Uric Acid 4.5, Calcium Level 8.7, Phosphorus Level 2.7, Magnesium Level 2.2, Total Bilirubin 0.6, Aspartate Amino Transf (AST/SGOT) 15, Alanine Aminotransferase (ALT/SGPT) 11L, Alkaline Phosphatase 47, Troponin I 0.056, Pro- B-Type Natriuretic Peptide 1163H, Total Protein 5.6L, Albumin 2.8L, Globulin 2.8 , Albumin/Globulin Ratio 1.0, Amylase Level 73, Lipase 215 Height (Feet): 5 Height (Inches): 6.00 Weight (Pounds): 111 General Appearance: no apparent distress Cardiovascular: normal rate, bradycardia Respiratory/Chest: lungs clear Abdomen: soft Reilly Hernandez MD Oct 16, 2019 09:44
[2019-10-16] MEDS ORDERED: HydrALAZINE 25mg tab ORAL PRN (09:45)
[2019-10-16] MEDS: D5NS 1,000 ML IV SCH (09:52)
[2019-10-16 12:00] VITALS: BP 108/64
--- NOTE | 2019-10-16 12:09 | Cardiac Electrophysiology PN ---
Assessment/Plan Assessment/Plan 1. NSTEMI type 2 due to the patient's renal failure with creatinine 2.6 and vasospasm in view of the patient's cocaine use. Avoid beta-elmo. No CP. FU Troponin is negative. On Cardizem 30 t.i.d. 2. Hypertension. On Cardizem 30 mg t.i.d. 3. Acute renal failure. Further evaluation by Nephrology. 4. Polysubstance abuse including cocaine and marijuana. Avoid beta-blockers. 5. Abdominal pain in the patient with history of prior small-bowel obstruction. DW RN Subjective Subjective No CP or SOB or abdominal pain. Objective Last 24 Hour Vital Signs Date Time Temp Pulse Resp B/P (MAP) Pulse Ox O2 Delivery O2 Flow Rate FiO2 10/16/19 09:00 Room Air 10/16/19 08:00 56 10/16/19 08:00 97.9 58 18 127/79 (95) 97 10/16/19 05:55 74 129/78 10/16/19 04:00 98.3 69 20 118/74 (89) 98 10/16/19 04:00 55 10/16/19 00:00 97.6 76 20 137/74 (95) 98 10/16/19 00:00 56 10/15/19 22:16 74 127/87 10/15/19 21:20 Room Air 10/15/19 20:00 59 10/15/19 20:00 98.7 74 18 124/74 (91) 97 74 10/15/19 16:00 96.8 79 20 129/77 (94) 98 10/15/19 15:12 58 10/15/19 13:15 69 126/81 Intake and Output 10/15/19 10/16/19 19:00 07:00 Intake Total 720 ml Balance 720 ml Intake Oral 720 ml # Voids 4 Laboratory Tests Test 10/15/19 13:15 10/16/19 06:15 Urine Random Sodium 39 mmol/L (20-110) Urine Opiates Screen Negative (NEGATIVE) Urine Barbiturates Screen Negative (NEGATIVE) Phencyclidine (PCP) Screen Negative (NEGATIVE) Urine Amphetamines Screen Negative (NEGATIVE) Urine Benzodiazepines Screen Negative (NEGATIVE) Urine Cocaine Screen Positive (NEGATIVE) H Urine Marijuana (THC) Screen Positive (NEGATIVE) H White Blood Count 10.1 K/UL (4.8-10.8) Red Blood Count 3.69 M/UL (4.20-5.40) L Hemoglobin 11.7 G/DL (12.0-16.0) L Hematocrit 33.1 % (37.0-47.0) L Mean Corpuscular Volume 90 FL (80-99) Mean Corpuscular Hemoglobin 31.7 PG (27.0-31.0) H Mean Corpuscular Hemoglobin Concent 35.3 G/DL (32.0-36.0) Red Cell Distribution Width 11.5 % (11.6-14.8) L Platelet Count 223 K/UL (150-450) Mean Platelet Volume 7.3 FL (6.5-10.1) Neutrophils (%) (Auto) 42.6 % (45.0-75.0) L Lymphocytes (%) (Auto) 46.8 % (20.0-45.0) H Monocytes (%) (Auto) 8.3 % (1.0-10.0) Eosinophils (%) (Auto) 1.2 % (0.0-3.0) Basophils (%) (Auto) 1.2 % (0.0-2.0) Sodium Level 138 MMOL/L (136-145) Potassium Level 4.3 MMOL/L (3.5-5.1) Chloride Level 105 MMOL/L (98-107) Carbon Dioxide Level 29 MMOL/L (21-32) Anion Gap 4 mmol/L (5-15) L Blood Urea Nitrogen 23 mg/dL (7-18) H Creatinine 1.6 MG/DL (0.55-1.30) H Estimat Glomerular Filtration Rate 40.1 mL/min (>60) Glucose Level 88 MG/DL (74-106) Uric Acid 4.5 MG/DL (2.6-7.2) Calcium Level 8.7 MG/DL (8.5-10.1) Phosphorus Level 2.7 MG/DL (2.5-4.9) Magnesium Level 2.2 MG/DL (1.8-2.4) Total Bilirubin 0.6 MG/DL (0.2-1.0) Aspartate Amino Transf (AST/SGOT) 15 U/L (15-37) Alanine Aminotransferase (ALT/SGPT) 11 U/L (12-78) L Alkaline Phosphatase 47 U/L (46-116) Troponin I 0.056 ng/mL (0.000-0.056) Pro-B-Type Natriuretic Peptide 1163 pg/mL (0-125) H Total Protein 5.6 G/DL (6.4-8.2) L Albumin 2.8 G/DL (3.4-5.0) L Globulin 2.8 g/dL Albumin/Globulin Ratio 1.0 (1.0-2.7) Amylase Level 73 U/L (25-115) Lipase 215 U/L (73-393) Objective HEAD AND NECK: Showed no JVD. LUNGS: Clear. CARDIOVASCULAR: Shows regular S1 and S2 with no gallop. ABDOMEN: Soft. EXTREMITIES: No pitting edema. Brandon Granado MD Oct 16, 2019 12:09
--- NOTE | 2019-10-16 12:14 | General Progress Note ---
Assessment/Plan Problem List: (1) Abdominal pain ICD Codes: R10.9 - Unspecified abdominal pain SNOMED: 32042582 (2) Renal insufficiency ICD Codes: N28.9 - Disorder of kidney and ureter, unspecified SNOMED: 340622807, 419005570 (3) Epigastric pain ICD Codes: R10.13 - Epigastric pain SNOMED: 56424754 (4) Gastritis ICD Codes: K29.70 - Gastritis, unspecified, without bleeding SNOMED: 2567551 (5) Intractable nausea and vomiting ICD Codes: R11.2 - Nausea with vomiting, unspecified SNOMED: 505908289, 665014591 Assessment/Plan: ppi CT reviewed drug screen>>> positive for cocaine and THC advance diet fu nephrology EGD if needed Subjective ROS Limited/Unobtainable: Yes Allergies: Coded Allergies: PROPOXYPHENE (Verified Allergy, Mild, 11/03/08) Objective Last 24 Hour Vital Signs Date Time Temp Pulse Resp B/P (MAP) Pulse Ox O2 Delivery O2 Flow Rate FiO2 10/16/19 09:00 Room Air 10/16/19 08:00 56 10/16/19 08:00 97.9 58 18 127/79 (95) 97 10/16/19 05:55 74 129/78 10/16/19 04:00 98.3 69 20 118/74 (89) 98 10/16/19 04:00 55 10/16/19 00:00 97.6 76 20 137/74 (95) 98 10/16/19 00:00 56 10/15/19 22:16 74 127/87 10/15/19 21:20 Room Air 10/15/19 20:00 59 10/15/19 20:00 98.7 74 18 124/74 (91) 97 74 10/15/19 16:00 96.8 79 20 129/77 (94) 98 10/15/19 15:12 58 10/15/19 13:15 69 126/81 Intake and Output 10/15/19 10/16/19 19:00 07:00 Intake Total 720 ml Balance 720 ml Intake Oral 720 ml # Voids 4 Laboratory Tests 10/15/19 13:15: Urine Random Sodium 39, Urine Opiates Screen Negative, Urine Barbiturates Screen Negative, Phencyclidine (PCP) Screen Negative, Urine Amphetamines Screen Negative, Urine Benzodiazepines Screen Negative, Urine Cocaine Screen PositiveH , Urine Marijuana (THC) Screen PositiveH 10/16/19 06:15: White Blood Count 10.1, Red Blood Count 3.69L, Hemoglobin 11.7L, Hematocrit 33.1L, Mean Corpuscular Volume 90, Mean Corpuscular Hemoglobin 31.7H, Mean Corpuscular Hemoglobin Concent 35.3, Red Cell Distribution Width 11.5L, Platelet Count 223, Mean Platelet Volume 7.3, Neutrophils (%) (Auto) 42.6L, Lymphocytes (%) (Auto) 46.8H, Monocytes (%) (Auto) 8.3, Eosinophils (%) (Auto) 1.2, Basophils (%) (Auto) 1.2, Sodium Level 138, Potassium Level 4.3, Chloride Level 105, Carbon Dioxide Level 29, Anion Gap 4L, Blood Urea Nitrogen 23H, Creatinine 1.6H, Estimat Glomerular Filtration Rate 40.1, Glucose Level 88, Uric Acid 4.5, Calcium Level 8.7, Phosphorus Level 2.7, Magnesium Level 2.2, Total Bilirubin 0.6, Aspartate Amino Transf (AST/SGOT) 15, Alanine Aminotransferase (ALT/SGPT) 11L, Alkaline Phosphatase 47, Troponin I 0.056, Pro- B-Type Natriuretic Peptide 1163H, Total Protein 5.6L, Albumin 2.8L, Globulin 2.8 , Albumin/Globulin Ratio 1.0, Amylase Level 73, Lipase 215 Height (Feet): 5 Height (Inches): 6.00 Weight (Pounds): 111 General Appearance: no apparent distress EENT: normal ENT inspection Neck: supple Cardiovascular: normal rate Respiratory/Chest: lungs clear Abdomen: normal bowel sounds, non tender, soft Extremities: non-tender Low Gonzalez MD Oct 16, 2019 12:14
--- NOTE | 2019-10-16 14:59 | Infectious Diseases Prog Note ---
Assessment/Plan Assessment/Plan IMPRESSION: 1. Leukocytosis resolved 2. Acute pancreatitis. 3. Has history of recurrent gastritis. 4. Acute renal failure. 5. Dehydration. 6. Hypertension. RECOMMENDATION: Observe off antibiotic Subjective ROS Limited/Unobtainable: No Constitutional: Reports: no symptoms Respiratory: Reports: no symptoms Gastrointestinal/Abdominal: Reports: no symptoms Genitourinary: Reports: no symptoms Allergies: Coded Allergies: PROPOXYPHENE (Verified Allergy, Mild, 11/03/08) Objective Vital Signs Last 24 Hour Vital Signs Date Time Temp Pulse Resp B/P (MAP) Pulse Ox O2 Delivery O2 Flow Rate FiO2 10/16/19 12:00 97.7 77 18 108/64 (79) 98 10/16/19 12:00 86 10/16/19 09:00 Room Air 10/16/19 08:00 56 10/16/19 08:00 97.9 58 18 127/79 (95) 97 10/16/19 05:55 74 129/78 10/16/19 04:00 98.3 69 20 118/74 (89) 98 10/16/19 04:00 55 10/16/19 00:00 97.6 76 20 137/74 (95) 98 10/16/19 00:00 56 10/15/19 22:16 74 127/87 10/15/19 21:20 Room Air 10/15/19 20:00 59 10/15/19 20:00 98.7 74 18 124/74 (91) 97 74 10/15/19 16:00 96.8 79 20 129/77 (94) 98 10/15/19 15:12 58 Height (Feet): 5 Height (Inches): 6.00 Weight (Pounds): 111 General Appearance: no acute distress Respiratory/Chest: lungs clear Cardiovascular: normal rate Abdomen: soft, non tender Extremities: no edema Neurologic/Psychiatric: alert, oriented x 3, responsive Laboratory Tests Test 10/16/19 06:15 White Blood Count 10.1 K/UL (4.8-10.8) Red Blood Count 3.69 M/UL (4.20-5.40) L Hemoglobin 11.7 G/DL (12.0-16.0) L Hematocrit 33.1 % (37.0-47.0) L Mean Corpuscular Volume 90 FL (80-99) Mean Corpuscular Hemoglobin 31.7 PG (27.0-31.0) H Mean Corpuscular Hemoglobin Concent 35.3 G/DL (32.0-36.0) Red Cell Distribution Width 11.5 % (11.6-14.8) L Platelet Count 223 K/UL (150-450) Mean Platelet Volume 7.3 FL (6.5-10.1) Neutrophils (%) (Auto) 42.6 % (45.0-75.0) L Lymphocytes (%) (Auto) 46.8 % (20.0-45.0) H Monocytes (%) (Auto) 8.3 % (1.0-10.0) Eosinophils (%) (Auto) 1.2 % (0.0-3.0) Basophils (%) (Auto) 1.2 % (0.0-2.0) Sodium Level 138 MMOL/L (136-145) Potassium Level 4.3 MMOL/L (3.5-5.1) Chloride Level 105 MMOL/L (98-107) Carbon Dioxide Level 29 MMOL/L (21-32) Anion Gap 4 mmol/L (5-15) L Blood Urea Nitrogen 23 mg/dL (7-18) H Creatinine 1.6 MG/DL (0.55-1.30) H Estimat Glomerular Filtration Rate 40.1 mL/min (>60) Glucose Level 88 MG/DL (74-106) Uric Acid 4.5 MG/DL (2.6-7.2) Calcium Level 8.7 MG/DL (8.5-10.1) Phosphorus Level 2.7 MG/DL (2.5-4.9) Magnesium Level 2.2 MG/DL (1.8-2.4) Total Bilirubin 0.6 MG/DL (0.2-1.0) Aspartate Amino Transf (AST/SGOT) 15 U/L (15-37) Alanine Aminotransferase (ALT/SGPT) 11 U/L (12-78) L Alkaline Phosphatase 47 U/L (46-116) Troponin I 0.056 ng/mL (0.000-0.056) Pro-B-Type Natriuretic Peptide 1163 pg/mL (0-125) H Total Protein 5.6 G/DL (6.4-8.2) L Albumin 2.8 G/DL (3.4-5.0) L Globulin 2.8 g/dL Albumin/Globulin Ratio 1.0 (1.0-2.7) Amylase Level 73 U/L (25-115) Lipase 215 U/L (73-393) Current Medications Medications (Trade) Dose Ordered Sig/Mariano Route PRN Reason Start Time Stop Time Status Last Admin Dose Admin Acetaminophen (Tylenol) 500 mg Q6H PRN ORAL Mild Pain (Pain Scale 1-3) 10/15/19 08:45 11/14/19 08:44 Amlodipine Besylate (Norvasc) 10 mg DAILY ORAL 10/17/19 09:00 11/16/19 08:59 Dextrose/Sodium Chloride 1,000 ml @ 50 mls/hr Q20H IV 10/16/19 09:52 11/15/19 09:51 Docusate Sodium (Colace) 100 mg THREE TIMES A DAY ORAL 10/15/19 13:00 11/14/19 12:59 10/16/19 12:48 Hydralazine HCl (Apresoline) 25 mg Q4H PRN ORAL For BP over 160 systolic 10/16/19 09:45 01/14/20 09:44 Iohexol (OMNIPAQUE-300 100ml) 100 ml NOW PRN INJ Radiology Procedure 10/15/19 02:15 10/17/19 02:14 Nitroglycerin (Ntg) 0.4 mg Q5M PRN SL Prn Chest Pain 10/15/19 03:30 11/14/19 03:29 10/15/19 03:22 Ondansetron HCl (Zofran) 4 mg Q6H PRN IVP Nausea & Vomiting 10/15/19 08:45 11/14/19 08:44 Pantoprazole (Protonix) 40 mg EVERY 12 HOURS ORAL 10/15/19 09:15 11/14/19 09:14 10/16/19 09:44 Karson Nolen MD Oct 16, 2019 14:59
[2019-10-16 16:00] VITALS: BP 130/87
[2019-10-16 20:00] VITALS: BP 121/74
--- NOTE | 2019-10-16 22:06 | General Progress Note ---
Assessment/Plan Problem List: (1) Dehydration ICD Codes: E86.0 - Dehydration SNOMED: 43348539, 590178296 (2) Epigastric pain ICD Codes: R10.13 - Epigastric pain SNOMED: 35082112 (3) Abdominal pain ICD Codes: R10.9 - Unspecified abdominal pain SNOMED: 28246689 (4) ELINOR (acute kidney injury) ICD Codes: N17.9 - Acute kidney failure, unspecified SNOMED: 7728772, 03873906 (5) Hypertension ICD Codes: I10 - Essential (primary) hypertension SNOMED: 82869847 Status: progressing Assessment/Plan: arf pancreatitis substance abuse diet per gi dehydration needs to push for fuilds Subjective ROS Limited/Unobtainable: Yes Gastrointestinal/Abdominal: Reports: abdominal pain Allergies: Coded Allergies: PROPOXYPHENE (Verified Allergy, Mild, 11/03/08) Objective Last 24 Hour Vital Signs Date Time Temp Pulse Resp B/P (MAP) Pulse Ox O2 Delivery O2 Flow Rate FiO2 10/16/19 16:00 97.9 64 18 130/87 (101) 98 10/16/19 16:00 62 10/16/19 12:00 97.7 77 18 108/64 (79) 98 10/16/19 12:00 86 10/16/19 09:00 Room Air 10/16/19 08:00 56 10/16/19 08:00 97.9 58 18 127/79 (95) 97 10/16/19 05:55 74 129/78 10/16/19 04:00 98.3 69 20 118/74 (89) 98 10/16/19 04:00 55 10/16/19 00:00 97.6 76 20 137/74 (95) 98 10/16/19 00:00 56 10/15/19 22:16 74 127/87 Intake and Output 10/15/19 10/16/19 19:00 07:00 Intake Total 720 ml Balance 720 ml Intake Oral 720 ml # Voids 4 Laboratory Tests 10/16/19 06:15: White Blood Count 10.1, Red Blood Count 3.69L, Hemoglobin 11.7L, Hematocrit 33.1L, Mean Corpuscular Volume 90, Mean Corpuscular Hemoglobin 31.7H, Mean Corpuscular Hemoglobin Concent 35.3, Red Cell Distribution Width 11.5L, Platelet Count 223, Mean Platelet Volume 7.3, Neutrophils (%) (Auto) 42.6L, Lymphocytes (%) (Auto) 46.8H, Monocytes (%) (Auto) 8.3, Eosinophils (%) (Auto) 1.2, Basophils (%) (Auto) 1.2, Sodium Level 138, Potassium Level 4.3, Chloride Level 105, Carbon Dioxide Level 29, Anion Gap 4L, Blood Urea Nitrogen 23H, Creatinine 1.6H, Estimat Glomerular Filtration Rate 40.1, Glucose Level 88, Uric Acid 4.5, Calcium Level 8.7, Phosphorus Level 2.7, Magnesium Level 2.2, Total Bilirubin 0.6, Aspartate Amino Transf (AST/SGOT) 15, Alanine Aminotransferase (ALT/SGPT) 11L, Alkaline Phosphatase 47, Troponin I 0.056, Pro- B-Type Natriuretic Peptide 1163H, Total Protein 5.6L, Albumin 2.8L, Globulin 2.8 , Albumin/Globulin Ratio 1.0, Amylase Level 73, Lipase 215 Height (Feet): 5 Height (Inches): 6.00 Weight (Pounds): 111 Maura Matt MD Oct 16, 2019 22:06
[2019-10-17] VITALS: BP 130/82
[2019-10-17 04:00] VITALS: BP 129/68
[2019-10-17] MEDS: D5NS 1,000 ML IV SCH (05:20)
[2019-10-17 07:22] LABS: BASOPHILS % (AUTO) 0.9 % (0.0-2.0); EOSINOPHILS % (AUTO) 2.1 % (0.0-3.0); HEMATOCRIT 33.4 % (37.0-47.0); LYMPHOCYTES % (AUTO) 42.1 % (20.0-45.0); MEAN CORPUSCULAR VOLUME 96 FL (80-99); MONOCYTES % (AUTO) 8.3 % (1.0-10.0); NEUTROPHILS % (AUTO) 46.6 % (45.0-75.0); PLATELET COUNT 193 K/UL (150-450); RED BLOOD COUNT 3.46 M/UL (4.20-5.40); RED CELL DISTRIBUTION WIDTH 11.4 % (11.6-14.8); WHITE BLOOD COUNT 8.8 K/UL (4.8-10.8)
[2019-10-17 07:44] LABS: ALANINE AMINOTRANSFERASE 15 U/L (12-78); ALBUMIN 2.6 G/DL (3.4-5.0); ALBUMIN/GLOBULIN RATIO 0.9 (1.0-2.7); ALKALINE PHOSPHATASE 48 U/L (46-116); ANION GAP 9 mmol/L (5-15); ASPARTATE AMINO TRANSFERASE 13 U/L (15-37); BILIRUBIN,TOTAL 0.3 MG/DL (0.2-1.0); BLOOD UREA NITROGEN 18 mg/dL (7-18); CALCIUM 8.3 MG/DL (8.5-10.1); CARBON DIOXIDE 26 MMOL/L (21-32); CHLORIDE 105 MMOL/L (98-107); CREATININE 1.4 MG/DL (0.55-1.30); POTASSIUM 4.1 MMOL/L (3.5-5.1); SODIUM 140 MMOL/L (136-145)
[2019-10-17 08:00] VITALS: BP 110/79
[2019-10-17 08:34] VITALS: BP 129/68
[2019-10-17] MEDS: Docusate 100mg cap ORAL SCH (08:34)
--- NOTE | 2019-10-17 10:13 | General Progress Note ---
Assessment/Plan Problem List: (1) Abdominal pain ICD Codes: R10.9 - Unspecified abdominal pain SNOMED: 30013848 (2) Renal insufficiency ICD Codes: N28.9 - Disorder of kidney and ureter, unspecified SNOMED: 343226354, 219944753 (3) Epigastric pain ICD Codes: R10.13 - Epigastric pain SNOMED: 71931841 (4) Gastritis ICD Codes: K29.70 - Gastritis, unspecified, without bleeding SNOMED: 8771434 (5) Intractable nausea and vomiting ICD Codes: R11.2 - Nausea with vomiting, unspecified SNOMED: 843993214, 890360248 Status: progressing Assessment/Plan: ppi CT reviewed drug screen>>> positive for cocaine and THC on reg diet fu nephrology EGD plans on hold for now Subjective ROS Limited/Unobtainable: Yes Allergies: Coded Allergies: PROPOXYPHENE (Verified Allergy, Mild, 11/03/08) Objective Last 24 Hour Vital Signs Date Time Temp Pulse Resp B/P (MAP) Pulse Ox O2 Delivery O2 Flow Rate FiO2 10/17/19 08:34 61 129/68 10/17/19 04:00 98.1 60 16 129/68 (88) 98 10/17/19 04:00 61 10/17/19 00:00 98.2 72 18 130/82 (98) 98 10/17/19 00:00 66 10/16/19 21:00 Room Air 10/16/19 20:00 61 10/16/19 20:00 97.8 76 17 121/74 (90) 100 10/16/19 16:00 97.9 64 18 130/87 (101) 98 10/16/19 16:00 62 10/16/19 12:00 97.7 77 18 108/64 (79) 98 10/16/19 12:00 86 Intake and Output 10/16/19 10/17/19 19:00 07:00 Intake Total 720 ml 323 ml Balance 720 ml 323 ml Intake Oral 720 ml 240 ml IV Total 83 ml # Voids 3 2 Laboratory Tests 10/17/19 06:20: White Blood Count 8.8, Red Blood Count 3.46L, Hemoglobin 11.0L, Hematocrit 33.4L , Mean Corpuscular Volume 96, Mean Corpuscular Hemoglobin 31.8H, Mean Corpuscular Hemoglobin Concent 33.0, Red Cell Distribution Width 11.4L, Platelet Count 193, Mean Platelet Volume 8.4, Neutrophils (%) (Auto) 46.6, Lymphocytes (%) (Auto) 42.1, Monocytes (%) (Auto) 8.3, Eosinophils (%) (Auto) 2.1, Basophils (%) (Auto) 0.9, Sodium Level 140, Potassium Level 4.1, Chloride Level 105, Carbon Dioxide Level 26, Anion Gap 9, Blood Urea Nitrogen 18, Creatinine 1.4H, Estimat Glomerular Filtration Rate 46.9, Glucose Level 96, Hemoglobin A1c 6.4H, Uric Acid 4.2, Calcium Level 8.3L, Phosphorus Level 3.0, Magnesium Level 1.8, Total Bilirubin 0.3, Aspartate Amino Transf (AST/SGOT) 13L , Alanine Aminotransferase (ALT/SGPT) 15, Alkaline Phosphatase 48, C-Reactive Protein, Quantitative 0.9, Total Protein 5.4L, Albumin 2.6L, Globulin 2.8, Albumin/Globulin Ratio 0.9L Height (Feet): 5 Height (Inches): 6.00 Weight (Pounds): 111 General Appearance: no apparent distress EENT: normal ENT inspection Neck: supple Cardiovascular: normal rate Respiratory/Chest: decreased breath sounds Abdomen: normal bowel sounds, non tender, soft Extremities: non-tender Low Gonzalez MD Oct 17, 2019 10:13
--- NOTE | 2019-10-17 11:51 | Cardiac Electrophysiology PN ---
Assessment/Plan Assessment/Plan 1. NSTEMI type 2 due to the patient's renal failure with creatinine 2.6 and vasospasm in view of the patient's cocaine use. Avoid beta-elmo. No CP. FU Troponin is negative. On Cardizem 30 t.i.d. 2. Hypertension. On Cardizem 30 mg t.i.d. 3. Acute renal failure. Further evaluation by Nephrology.Cr now improved to 1.4 4. Polysubstance abuse including cocaine and marijuana. Avoid beta-blockers. 5. Abdominal pain in the patient with history of prior small-bowel obstruction. DW RN Subjective Subjective No CP or SOB or abdominal pain.Wants to go home. Objective Last 24 Hour Vital Signs Date Time Temp Pulse Resp B/P (MAP) Pulse Ox O2 Delivery O2 Flow Rate FiO2 10/17/19 09:00 Room Air 10/17/19 08:34 61 129/68 10/17/19 08:00 97.9 62 20 110/79 (89) 98 10/17/19 08:00 61 10/17/19 04:00 98.1 60 16 129/68 (88) 98 10/17/19 04:00 61 10/17/19 00:00 98.2 72 18 130/82 (98) 98 10/17/19 00:00 66 10/16/19 21:00 Room Air 10/16/19 20:00 61 10/16/19 20:00 97.8 76 17 121/74 (90) 100 10/16/19 16:00 97.9 64 18 130/87 (101) 98 10/16/19 16:00 62 10/16/19 12:00 97.7 77 18 108/64 (79) 98 10/16/19 12:00 86 Intake and Output 10/16/19 10/17/19 19:00 07:00 Intake Total 720 ml 323 ml Balance 720 ml 323 ml Intake Oral 720 ml 240 ml IV Total 83 ml # Voids 3 2 Laboratory Tests Test 10/17/19 06:20 White Blood Count 8.8 K/UL (4.8-10.8) Red Blood Count 3.46 M/UL (4.20-5.40) L Hemoglobin 11.0 G/DL (12.0-16.0) L Hematocrit 33.4 % (37.0-47.0) L Mean Corpuscular Volume 96 FL (80-99) Mean Corpuscular Hemoglobin 31.8 PG (27.0-31.0) H Mean Corpuscular Hemoglobin Concent 33.0 G/DL (32.0-36.0) Red Cell Distribution Width 11.4 % (11.6-14.8) L Platelet Count 193 K/UL (150-450) Mean Platelet Volume 8.4 FL (6.5-10.1) Neutrophils (%) (Auto) 46.6 % (45.0-75.0) Lymphocytes (%) (Auto) 42.1 % (20.0-45.0) Monocytes (%) (Auto) 8.3 % (1.0-10.0) Eosinophils (%) (Auto) 2.1 % (0.0-3.0) Basophils (%) (Auto) 0.9 % (0.0-2.0) Sodium Level 140 MMOL/L (136-145) Potassium Level 4.1 MMOL/L (3.5-5.1) Chloride Level 105 MMOL/L (98-107) Carbon Dioxide Level 26 MMOL/L (21-32) Anion Gap 9 mmol/L (5-15) Blood Urea Nitrogen 18 mg/dL (7-18) Creatinine 1.4 MG/DL (0.55-1.30) H Estimat Glomerular Filtration Rate 46.9 mL/min (>60) Glucose Level 96 MG/DL (74-106) Hemoglobin A1c 6.4 % (4.3-6.0) H Uric Acid 4.2 MG/DL (2.6-7.2) Calcium Level 8.3 MG/DL (8.5-10.1) L Phosphorus Level 3.0 MG/DL (2.5-4.9) Magnesium Level 1.8 MG/DL (1.8-2.4) Total Bilirubin 0.3 MG/DL (0.2-1.0) Aspartate Amino Transf (AST/SGOT) 13 U/L (15-37) L Alanine Aminotransferase (ALT/SGPT) 15 U/L (12-78) Alkaline Phosphatase 48 U/L (46-116) C-Reactive Protein, Quantitative 0.9 mg/dL (0.00-0.90) Total Protein 5.4 G/DL (6.4-8.2) L Albumin 2.6 G/DL (3.4-5.0) L Globulin 2.8 g/dL Albumin/Globulin Ratio 0.9 (1.0-2.7) L Objective HEAD AND NECK: Showed no JVD. LUNGS: Clear. CARDIOVASCULAR: Shows regular S1 and S2 with no gallop. ABDOMEN: Soft. EXTREMITIES: No pitting edema. Brandon Granado MD Oct 17, 2019 11:51
[2019-10-17] MEDS ORDERED: D5NS 1000ml IV ONE (13:26)
--- NOTE | 2019-10-17 13:54 | Nephrology Progress Note ---
Assessment/Plan Problem List: (1) ELINOR (acute kidney injury) Assessment: Resolved (2) Dehydration (3) Renal failure (ARF), acute on chronic (4) Hypertension Assessment: Controlled (5) Substance abuse Assessment: Cocaine and marijuana in urine Assessment Renal failure, most likely acute superimposed on underlying chronic kidney disease Possible hypertensive kidney disease, because of chronic kidney disease Acute renal failure probably partly due to dehydration And, partly related to nephrotoxic's like Naprosyn and or lisinopril Cocaine and marijuana in urine tox screen Plan Late note entry. Patient seen this morning. Stable for discharge. Labs and medication reviewed. Stop diuretics, start to hydrate slowly Keep the blood pressure in check, will replace Cardizem with Norvasc and add as needed hydralazine today Avoid nephrotoxic's, keep Naprosyn and lisinopril on hold Urine studies Monitor renal parameters 2D echocardiogram results noted Discussed with art therapy certified supervisor Kidney ultrasound: Impression: Somewhat small kidneys bilaterally. No evidence of hydronephrosis or obstructive uropathy 6.7 cm unilocular pelvic cyst. Based on recent CT scan, likely of gynecologic origin. Recommend dedicated pelvic and endovaginal sonography for further evaluation. Subjective ROS Limited/Unobtainable: No Objective Objective Last 24 Hour Vital Signs Date Time Temp Pulse Resp B/P (MAP) Pulse Ox O2 Delivery O2 Flow Rate FiO2 10/17/19 09:00 Room Air 10/17/19 08:34 61 129/68 10/17/19 08:00 97.9 62 20 110/79 (89) 98 10/17/19 08:00 61 10/17/19 04:00 98.1 60 16 129/68 (88) 98 10/17/19 04:00 61 10/17/19 00:00 98.2 72 18 130/82 (98) 98 10/17/19 00:00 66 10/16/19 21:00 Room Air 10/16/19 20:00 61 10/16/19 20:00 97.8 76 17 121/74 (90) 100 10/16/19 16:00 97.9 64 18 130/87 (101) 98 10/16/19 16:00 62 Intake and Output 10/16/19 10/17/19 19:00 07:00 Intake Total 720 ml 323 ml Balance 720 ml 323 ml Intake Oral 720 ml 240 ml IV Total 83 ml # Voids 3 2 Laboratory Tests 10/17/19 06:20: White Blood Count 8.8, Red Blood Count 3.46L, Hemoglobin 11.0L, Hematocrit 33.4L , Mean Corpuscular Volume 96, Mean Corpuscular Hemoglobin 31.8H, Mean Corpuscular Hemoglobin Concent 33.0, Red Cell Distribution Width 11.4L, Platelet Count 193, Mean Platelet Volume 8.4, Neutrophils (%) (Auto) 46.6, Lymphocytes (%) (Auto) 42.1, Monocytes (%) (Auto) 8.3, Eosinophils (%) (Auto) 2.1, Basophils (%) (Auto) 0.9, Sodium Level 140, Potassium Level 4.1, Chloride Level 105, Carbon Dioxide Level 26, Anion Gap 9, Blood Urea Nitrogen 18, Creatinine 1.4H, Estimat Glomerular Filtration Rate 46.9, Glucose Level 96, Hemoglobin A1c 6.4H, Uric Acid 4.2, Calcium Level 8.3L, Phosphorus Level 3.0, Magnesium Level 1.8, Total Bilirubin 0.3, Aspartate Amino Transf (AST/SGOT) 13L , Alanine Aminotransferase (ALT/SGPT) 15, Alkaline Phosphatase 48, C-Reactive Protein, Quantitative 0.9, Total Protein 5.4L, Albumin 2.6L, Globulin 2.8, Albumin/Globulin Ratio 0.9L Height (Feet): 5 Height (Inches): 6.00 Weight (Pounds): 111 General Appearance: no apparent distress Objective No change Reilly Hernanedz MD Oct 17, 2019 13:54
--- NOTE | 2019-10-19 16:23 | Discharge Summary ---
Discharge Summary Discharge Summary _ DATE OF ADMISSION: 10/15/2019 DATE OF DISCHARGE: 10/17/2019 DISCHARGED BY: Dr. Maura Crystal CONSULTANTS: Dr. Reilly Nolen BRIEF HOSPITAL COURSE: Patient is a 59-year-old female, who presented to ED after increased nausea and vomiting. She had a recent ER visit for similar symptoms. She denied diarrhea or bloody stools. She smokes marijuana occasionally. She reported worsening pain after eating. Upon evaluation at the ED, blood pressure was elevated to 147/103. Heart rate stable. She was afebrile. Blood work showed WBC elevated to 13.5. Hemoglobin and hematocrit were stable. Sodium 133, potassium 4.0, chloride 95. BUN 56 and creatinine 2.6. Troponin was elevated to 0.228. Lipase elevated to 796. Urinalysis was essentially negative. Urine toxicology was positive for cocaine and marijuana. CT of the abdomen and pelvis with contrast did not show any definite acute inflammatory or obstructive process. Chest x-ray showed normal cardiac size without evident infiltrate. EKG showed normal sinus rhythm with nonspecific ST changes. She was given aspirin as well as Pepcid. She was given IV hydration and IV emetics. She was then admitted for evaluation of elevated troponin, acute renal failure, dehydration, and pancreatitis. She was admitted to monitored floor. She was given IV hydration. She was placed on n.p.o. She was given proton pump inhibitors. Blood work was closely followed. Patient presented with renal failure, most likely acute superimposed on underlying chronic kidney disease. Naproxen and lisinopril from home medications were placed on hold. Diuretics were discontinued. Cardiac enzymes were monitored although troponin elevation could be likely secondary to renal failure and vasospasm. Patient denied any chest pain or shortness of breath. She was started on Cardizem by log data technician. She was eventually started on clear liquid diet by GI. No antibiotics needed per ID. Kidney ultrasound showed small kidneys bilaterally with no evidence of hydronephrosis or obstructive uropathy. CT scan showed 6.7 unilocular pelvic cyst. Patient was recommended pelvic and endovaginal ultrasound for further evaluation. Subsequent cardiac enzymes was negative. She was strongly counseled against substance abuse. Diet was advanced. Lipase normalized. Creatinine improved to 1.4. She was eventually discharged home. FINAL DIAGNOSES: Acute pancreatitis Acute on chronic renal failure NSTEMI type II due to patient's renal failure and vasospasm in view of patient' s cocaine use Dehydration Possible hypertensive kidney disease because of chronic kidney disease Substance abuse Gastritis DISPOSITION: Patient was discharged home. DISCHARGE MEDICATIONS: Resume home meds. DISCHARGE INSTRUCTIONS: Follow-up in a week. I have been assigned to complete a discharge summary on this account, I was not involved with the patient's management.--MARU Preciado Jacqueline Robles NP Oct 19, 2019 16:23
== END 2019-10-17 13:27 | disposition home or self-care (01) | DRG 282 ==
LOC: EMR 02:15 → 2E 03:37 → UNDOADMIN 03:37 → 2E 03:37 → OBSVTOIN 03:37 → EDBEDREQ 04:41 → 2E 06:34
DX: K85.90 Acute pancreatitis without necrosis or infection, unspecified (principal); I21.A1 Myocardial infarction type 2; E86.0 Dehydration; N17.9 Acute kidney failure, unspecified; K29.70 Gastritis, unspecified, without bleeding; Z88.8 Allergy status to other drugs, medicaments and biological substances; K21.9 Gastro-esophageal reflux disease without esophagitis; I12.9 Hypertensive chronic kidney disease with stage 1 through stage 4 chronic kidney disease, or unspecified chronic kidney disease; N18.9 Chronic kidney disease, unspecified; F19.10 Other psychoactive substance abuse, uncomplicated; F14.10 Cocaine abuse, uncomplicated
CPT/HCPCS: 36415; 71045; 74177; 76770; 80053; 80061; 80307; 81003; 82150; 82550; 82977; 83036; 83615; 83690; 83735; 83880; 84100; 84300; 84443; 84484; 84550; 85025; 85610; 85730; 86140; 93005; 93306; 96361; 96374; 96375; 99285; J7030

== ENCOUNTER 2020-02-16 13:05 | Emergency (ER) | payer OTHER ==
[~2020-02-16] VITALS: Ht 167.6 cm; Wt 56.7 kg
[~2020-02-16 13:05] MED LIST changes: +NAPROXEN500 M2 ORAL
[2020-02-16 13:30] VITALS: BP 163/101
[2020-02-16] MEDS ORDERED: Ketorolac 30mg Inj IV ONE ×2 (13:30→14:45)
--- NOTE | 2020-02-16 13:40 | NUR ---
ED Nurse Note: Pt BIBA for abdominal pain and nausea for 2 days. Pt denies vomiting. Pt is alert and orientedx4, ambulatory. pt has been seen by ERMD. Set up on monitor. No acute distress.
[2020-02-16 14:17] LABS: BASOPHILS % (AUTO) 3.5 % (0.0-2.0); EOSINOPHILS % (AUTO) 0.3 % (0.0-3.0); HEMATOCRIT 44.8 % (37.0-47.0); LYMPHOCYTES % (AUTO) 29.2 % (20.0-45.0); MEAN CORPUSCULAR VOLUME 91 FL (80-99); NEUTROPHILS % (AUTO) 63.9 % (45.0-75.0); PLATELET COUNT 333 K/UL (150-450); RED BLOOD COUNT 4.92 M/UL (4.20-5.40); RED CELL DISTRIBUTION WIDTH 12.4 % (11.6-14.8); WHITE BLOOD COUNT 10.3 K/UL (4.8-10.8)
[2020-02-16 14:18] LABS: APPEARANCE,URINE CLEAR; BILIRUBIN, URINE NEGATIVE (NEGATIVE); COLOR,URINE PALE YELLOW; GLUCOSE, URINE (UA) NEGATIVE (NEGATIVE); KETONES,URINE NEGATIVE (NEGATIVE); LEUKOCYTE ESTERASE ,URINE NEGATIVE (NEGATIVE); NITRITE,URINE NEGATIVE (NEGATIVE); PH,URINE 6 (4.5-8.0); PROTEIN,URINE 3+ (NEGATIVE); UROBILINOGEN,URINE NORMAL MG/DL (0.0-1.0)
[2020-02-16 14:33] LABS: ANION GAP 12 mmol/L (5-15); BLOOD UREA NITROGEN 25 mg/dL (7-18); CALCIUM 9.3 MG/DL (8.5-10.1); CARBON DIOXIDE 25 MMOL/L (21-32); CHLORIDE 101 MMOL/L (98-107); CREATININE 1.4 MG/DL (0.55-1.30); POTASSIUM 3.9 MMOL/L (3.5-5.1); SODIUM 138 MMOL/L (136-145)
[2020-02-16 14:38] LABS: ALANINE AMINOTRANSFERASE 18 U/L (12-78); ALKALINE PHOSPHATASE 71 U/L (46-116); ASPARTATE AMINO TRANSFERASE 23 U/L (15-37); BILIRUBIN,TOTAL 0.4 MG/DL (0.2-1.0)
[2020-02-16] MEDS ORDERED: Omnipaque-300 100ml vial INJ PRN (14:45)
[2020-02-16 16:30] VITALS: BP 160/94
--- NOTE | 2020-02-16 18:02 | Diagnostic Imaging Report ---
Clinical Indication: Abdominal pain, nausea for one day Technique: No oral contrast utilized, per emergency room physician request IV administration nonionic contrast. Venous phase spiral acquisition obtained through the abdomen and pelvis. Multiplanar reconstructions were generated. Total dose length product 172 mGycm. CTDIvol(s) 3 mGy. Dose reduction achieved using automated exposure control Comparison: 10/15/2019 noncontrast study Findings: Lack of enteric contrast limits assessment of the GI tract. What is probably a normal appendix is demonstrated. No evidence of diverticulosis or diverticulitis. No small bowel distention. No free or loculated intraperitoneal gas or fluid is evident. The distal esophagus, stomach, duodenum are unremarkable. The liver, gallbladder, bile ducts, pancreas, spleen, adrenals, kidneys are unremarkable. No retroperitoneal or mesenteric mass or adenopathy. Again demonstrated is a unilocular simple cyst in the right side of the pelvis. This measures 6.4 cm long axis dimension, appears similar in dimension to the previous study. The uterus is absent. No pelvic adenopathy. The included lung bases are clear. The bones demonstrate degenerative spondylosis changes. Impression: Limits assessment of the GI tract, due to lack of enteric contrast administration No definite acute abnormality Stable, since 10/15/2019, 6.4 cm right-sided pelvic cyst, probably ovarian in origin Incidental finding of minimal degenerative spondylosis changes The CT scanner at [facility] is accredited by the [employer] and the scans are performed using protocols designed to limit radiation exposure to as low as reasonably achievable to attain images of sufficient resolution adequate for diagnostic evaluation.
--- NOTE | 2020-02-16 18:14 | Emergency Room Report ---
History of Present Illness General Chief Complaint: Abdominal Pain Source: Patient Present Illness HPI 59-year-old female with history of hypertension currently taking medication, and cocaine and marijuana abuse here complaining of 2 days of epigastric abdominal pain and flatulence with few bouts of nonbloody emesis. Denies any diarrhea, fever and chills. Patient rates pain 10 out of 10. Is not really answering questions thoroughly. Denies any drug use alcohol intake. Reports that she did take her blood pressure medication prior to arrival. Denies any chest pain shortness of breath. Denies any urinary symptoms. Denies any history of abdominal surgery. Patient was seen few months ago here at [facility] for the same complaint, CT scan was within normal limits, patient was positive for cocaine and marijuana attack. Allergies: Coded Allergies: PROPOXYPHENE (Verified Allergy, Mild, 11/03/08) COVID-19 Screening Contact w/high risk pt: No Recent Travel to affected area: No Experienced COVID-19 symptoms?: No COVID-19 Testing performed [employer]: No Patient History Past Medical History: see triage record Past Surgical History: none Pertinent Family History: none Now: No Immunizations: UTD Reviewed Nursing Documentation: PMH: Agreed; PSxH: Agreed Nursing Documentation-PMH Past Medical History: No History, Except For Hx Hypertension: Yes Hx Cancer: No Hx Gastrointestinal Problems: No Hx Neurological Problems: No Review of Systems All Other Systems: negative except mentioned in HPI Physical Exam Vital Signs Date Time Temp Pulse Resp B/P (MAP) Pulse Ox O2 Delivery O2 Flow Rate FiO2 02/16/20 13:13 97.5 70 20 193/110 (137) 99 Room Air Sp02 EP Interpretation: reviewed, normal General Appearance: no apparent distress, alert, GCS 15, non-toxic Head: normocephalic, atraumatic Eyes: bilateral eye normal inspection, bilateral eye PERRL ENT: hearing grossly normal, normal pharynx, no angioedema, normal voice Neck: full range of motion, supple/symm/no masses Respiratory: chest non-tender, lungs clear, normal breath sounds, speaking full sentences Cardiovascular #1: regular rate, rhythm, no edema Cardiovascular #2: 2+ carotid (R), 2+ carotid (L), 2+ radial (R), 2+ radial (L), 2+ dorsalis pedis (R), 2+ dorsalis pedis (L) Gastrointestinal: normal bowel sounds, non tender, soft, no mass, no organomegaly, no peritonitis, no bruit, non-distended, no guarding, no hernia, no pulsatile mass, no rebound Genitourinary: no CVA tenderness Musculoskeletal: back normal Neurologic: alert, motor strength/tone normal, oriented x3, sensory intact, responsive, speech normal Psychiatric: judgement/insight normal, memory normal, mood/affect normal, no suicidal/homicidal ideation Skin: no rash Lymphatic: no adenopathy Medical Decision Making PA Attestation All my diagnosis and treatment plans were reviewed ad discussed with my supervising physician Dr. Ruelas Diagnostic Impression: Primary Impression: Constipation Additional Impressions: Cocaine abuse Marijuana abuse ER Course 59-year-old female with history of hypertension currently taking medication, and cocaine and marijuana abuse here complaining of 2 days of epigastric abdominal pain and flatulence with few bouts of nonbloody emesis. Denies any diarrhea, fever and chills. Patient rates pain 10 out of 10. Is not really answering questions thoroughly. Denies any drug use alcohol intake. Reports that she did take her blood pressure medication prior to arrival. Denies any chest pain shortness of breath. Denies any urinary symptoms. Denies any history of abdominal surgery. Patient was seen few months ago here at [facility] for the same complaint, CT scan was within normal limits, patient was positive for cocaine and marijuana attack. Ddx considered but are not limited to: appendicitis, cholecystis, gastritis, gastroenteritis, UTI, pyelonephritis, SBO, diverticulitis, influenza with GI manifestation, PR, pancreatitis Vital signs: are WNL, pt. is afebrile H&PE are most consistent with: Constipation, cocaine abuse, marijuana abuse ORDERS: abdominal CT, abdominal pain set, EKG, lactulose, Tylenol, Zofran, Pepcid ED INTERVENTIONS: NS bolus, Toradol, Zofran, Pepcid, Tylenol p.o. DISCHARGE: At this time pt. is stable for d/c to home. Will provide printed patient care instructions, and any necessary prescriptions. Care plan and follow up instructions have been discussed with the patient prior to discharge. Take medications or care, follow primary doctor, avoid using cocaine marijuana, increase oral hydration fiber intake, % return to emergency EKG Diagnostic Results Rate: normal Rhythm: NSR ST Segments: no acute changes Other Impression No acute ST changes ASA given to the pt in ED: No CT/MRI/US Diagnostic Results CT/MRI/US Diagnostic Results : Imaging Test Ordered: CT abdomen pelvis with contrast Impression Constipation Last Vital Signs Date Time Temp Pulse Resp B/P (MAP) Pulse Ox O2 Delivery O2 Flow Rate FiO2 02/16/20 14:13 97.5 02/16/20 13:13 70 20 193/110 (137) 99 Room Air Disposition: HOME, SELF-CARE Condition: Stable Scripts Acetaminophen* (TYLENOL EXTRA STRENGTH*) 500 Mg Tablet 500 MG ORAL Q8H PRN for Prn Headache/Temp > 101, #30 TAB 0 Refills Prov: Yannick Oswald 02/16/20 Famotidine* (Pepcid 20mg tablet*) 20 Mg Tablet 20 MG ORAL DAILY for Gerd, #30 TAB 0 Refills Prov: Yannick Oswald 02/16/20 Ondansetron* (ZOFRAN*) 4 Mg Tablet 4 MG ORAL Q6H PRN for Nausea & Vomiting, #14 TAB Prov: Yannick Oswald 02/16/20 Lactulose (LACTULOSE*) 20 Gm/30 Ml Solution 15 ML ORAL TID, #200 ML 0 Refills Prov: Yannick Oswald 02/16/20 Referrals: [facility]ERR[facility] (PCP) Patient Instructions: Abdominal Pain, Adult, Cannabis Use Disorder, Stimulant Use Disorder-Cocaine Additional Instructions: Take medication as directed, follow primary care provider, increase oral hydration, increase fiber intake, worsening symptoms return to the emergency room. Avoid using cocaine and marijuana Yannick Oswald Feb 16, 2020 18:14
[2020-02-16] MEDS ORDERED: TYLENOL EXTRA500 MG ORAL (18:18)
[2020-02-16] MEDS ORDERED: LACTULOSE20 GM/301 ORAL (18:18)
[2020-02-16] MEDS ORDERED: ZOFRAN4 M3 ORAL (18:18)
[2020-02-16] MEDS ORDERED: FAMOTIDINE20 MG ORAL (18:18)
[2020-02-16 18:25] VITALS: BP 157/100
[2020-02-16 18:45] VITALS: BP 152/97
--- NOTE | 2020-02-16 18:46 | NUR ---
ER DISCHARGE NOTE: Patient is cleared to be discharged per ERMD, pt is aox4, on room air, with stable vital signs. pt was given dc and prescription instructions, pt was able to verbalize understanding, pt id band and iv site removed without complications. pt is able to ambulate with steady gait. pt took all belongings. Pt educated about cocaine and MJ use.
--- NOTE | 2020-02-17 16:24 | Cardiology Report ---
APPROVED REPORT EKG Measurement Heart [id number] <Conclusion> Normal sinus rhythm Normal ECG
== END 2020-02-16 18:45 | disposition home or self-care (01) ==
LOC: EMR 13:46
DX: K59.00 Constipation, unspecified (principal); F14.10 Cocaine abuse, uncomplicated; F12.10 Cannabis abuse, uncomplicated; I10 Essential (primary) hypertension; Z88.8 Allergy status to other drugs, medicaments and biological substances; M47.819 Spondylosis without myelopathy or radiculopathy, site unspecified; N94.89 Other specified conditions associated with female genital organs and menstrual cycle
CPT/HCPCS: 36415; 74177; 80053; 80307; 81003; 83690; 84484; 85025; 85610; 85730; 93005; 96361; 96374; 96375; 96376; G0480; J1885; J2405; J7030; Q9965; Z7502; 99284